=== PATIENT | male | born 1975 | race Caucasian/White ===

== ENCOUNTER 2021-09-07 19:21 | Emergency (ER) | payer OTHER, SELFPAY ==
--- NOTE | ~2021-09-07 | CT_ITS ---
EXAMINATION: CT HEAD WITHOUT CONTRAST CLINICAL INFORMATION: Dizziness. COMPARISON: CT head dated from 06/16/2017. TECHNIQUE: Contiguous axial imaging was performed from the skull base to vertex without intravenous administration of contrast. This CT examination was performed using dose optimization techniques as appropriate, variously including the following: *Automated exposure control *Adjustment of mA and/or kV according to patient size (this includes techniques or standardized protocols for targeted exams where dose is matched to indication/reason for exam; i.e. extremities or head) *Use of iterative reconstruction technique DLP: 663 mGy-cm FINDINGS: There is no evidence of acute intracranial hemorrhage or edematous territorial infarction. There is no abnormal attenuation within the brain parenchyma. Cali-white matter differentiation is preserved. The ventricles are normal in size and configuration. No evidence for obstructive hydrocephalus. No abnormal mass effect or midline shift. No extra-axial fluid collections. No acute soft tissue or osseous abnormalities. Mucosal thickening of the paranasal sinuses. No air-fluid level. The mastoids and middle air cavities are clear. CT/CT head/brain wo con IMPRESSION: No evidence of acute intracranial hemorrhage or edematous territorial infarction.
[2021-09-07 19:28] VITALS: BP 202/110; PULSE 104; O2SAT 98
[2021-09-07 19:31] VITALS: PULSE 99; RESP 19; TEMP 37.3; O2SAT 97; BMI 32.5
--- NOTE | 2021-09-07 19:46 | ED_ITS ---
HPI - Alcohol General Chief Complaint: ETOH/Substance Use Stated Complaint: Leg Weakness Time Seen by Provider: 09/07/21 19:35 History of Present Illness HPI narrative: PATIENT IS A 46-YEAR-OLD MALE PRESENT TODAY WITH HAVING generalized malaise weakness. Feels like his legs are weak. Patient has a long history of alcohol use. On Tuesday he had an episode of possible seizure. During this episode patient is awake alert aware of his surrounding. He noticed both wrists hands to be shaky. It resolved after about 1 minute. He was not confused after the incident. He has been drinking large amount of alcohol on a daily basis for at least the last week. Patient also complaining that his legs feel somewhat weak. 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 Patient from home. Elected to come to the ED for further evaluation. Denies any other recreational drug use. He also feel his vision is slightly off. Patient denies any focal weakness. Positive generalized malaise Related Data Allergies Allergy/AdvReac Type Severity Reaction Status Date / Time No Known Allergies Allergy Unverified 12/27/19 15:07 [No Known Allergies*] Review of Systems Review of Systems: No fever no chills no cough no congestion or respiratory symptom no diaphoresis Yes all other systems are reviewed and are negative PMFSH Past Medical History Attestation statement: The following information was validated with the patient. Social History Social History Alcohol intake: current Alcohol intake frequency: 3 or more drinks per day Alcohol type: beer and hard liquor Patient Tobacco Use Status: Current everyday Tobacco user Smoked in Last 30 Days: Yes Use of substances other than those prescribed or required for medical reasons: No Advance Directives: No Advance Directives Information Provided: No Physical Exam ED Vital Signs: Vital Signs - 24 hr 09/07/21 19:31 09/07/21 20:11 Temperature 99.1 F 98.5 F Pulse Rate 99 76 Respiratory Rate 19 16 Blood Pressure 141/69 H Pulse Oximetry 97 96 BMI result Body Mass Index 32.5 Appearance: Alert. Oriented X3. No acute distress. Eyes: Pupils equal, round and reactive to light. ENT: Pharynx normal. Neck: Normal inspection. Neck supple. No lymph nodes noted. No crepitus CVS: Normal heart rate and rhythm. Pulses normal. Normal S1 and S2 Respiratory: No respiratory distress. Breath sounds normal. No Wheezing. No rales Abdomen: Soft and nontender. No rigidity. No distention. good BS x4 Skin: Skin warm and dry. Normal skin color. Normal skin turgor. Extremities: No lower extremity edema. Neurovascular intact to all extremities. No Lacerations. No Rash Neuro: Oriented X 3. No motor deficit. No sensory deficit. Moving all exte rmities. No slurred speech MDM - Alcohol MDM Narrative Medical decision making narrative: Patient CT scan of the head was grossly negative for bleeding. No mass. Patient's electrolytes unremarkable. White count is normal. Ambulated well in the emergency department. Interestingly patient has no alcohol detectable today. Likely contribute to patient's generalized malaise. He is in stable con dition. Told to follow up on an outpatient basis question mild withdrawal. In stable condition. Patient case discussed with him. Told not to use any heavy machinery. Told to follow up with his primary physician. Told to go to detox. Of no patient's urine also positive for cocaine Differential Diagnosis Differential diagnosis: Likely alcohol dependence Medical Records Attestation: I reviewed the patient's medical records. Lab Data Attestation: I reviewed the patient's lab results. Result diagrams: 09/07/21 20:02 09/07/21 20:02 Labs: Lab Results 09/07/21 09/07/21 09/07/21 Range/Units 20:02 20:02 20:02 WBC 6.2 (4.8-10.8) X10*3/uL RBC 4.13 L (4.60-5.80) X10*6/uL Hgb 13.4 L (14.0-18.0) g/dl Hct 38.3 L (42.0-52.0) % MCV 92.7 (80.0-98.0) fL MCH 32.4 (27.0-33.0) pg MCHC 35.0 (31.0-36.0) g/dl RDW 14.1 (11.0-16.0) % Plt Count 76 L (160-400) X10*3/uL MPV 10.3 (9.4-12.4) fL Immature Gran % (Auto) 0.5 H (0.0-0.4) % Neut % (Auto) 63.8 (45-73) % Lymph % (Auto) 21.0 (20-40) % Sunflower % (Auto) 12.1 H (2-11) % Eos % (Auto) 2.3 (0-4) % Baso % (Auto) 0.3 (0-2) % Lymph # (Auto) 1.3 (1.2-4.9) X10*3/uL Sunflower # (Auto) 0.8 (0.1-1.2) X10*3/uL Eos # (Auto) 0.1 (0.0-0.4) X10*3/uL Baso # (Auto) 0.0 (0.0-0.2) X10*3/uL Abs Immat Gran (auto) 0.03 (0.00-0.03) X10*3/uL Absolute Neuts (auto) 4.0 (2.0-8.3) x10*3/uL Absolute Nucleated RBC 0.000 (0.0-0.012) X10*3/uL Nucleated RBC % (auto) 0.0 (0.0-0.2) /100WBC Smear Tech's Comments VERIFIED Sodium 135 (135-145) mmol/L Potassium 3.5 (3.3-5.1) mmol/L Chloride 100 (96-108) mmol/L Carbon Dioxide 23 (22-29) mmol/L Anion Gap 16 (12-20) BUN 9 (9-16) mg/dL Creatinine 0.70 (0.5-1.4) mg/dL Estim Creat Clear Calc 131.8 Estimated GFR > 60 Random Glucose 122 H (60-115) mg/dL Calcium 8.9 (8.4-10.2) mg/dL Magnesium 1.5 L (1.6-2.6) mg/dL Total Bilirubin 0.8 (0.0-1.0) mg/dL AST 89 H (5-37) U/L ALT 72 H (0-40) U/L Alkaline Phosphatase 81 (39-117) U/L Total Protein 7.3 (6.5-8.0) g/dL Albumin 3.7 (3.5-5.0) g/dL Urine Color Urine Appearance Urine pH (5.0-8.0) Ur Specific Street[place] (1.005-1.025) Urine Protein (NEG-TRACE) MG/DL Urine Glucose (UA) (NEG) MG/DL Urine Ketones (NEG) MG/DL Urine Blood (NEG) Urine Nitrite (NEG) Ur Leukocyte Esterase (NEG) Urine RBC (0) /HPF Urine WBC (0-4) /HPF Ur Squamous Epith Cells /LPF Urine Bacteria /LPF Urine Opiates Screen (Not Detect) Urine Fentanyl Screen (Not Detect) Ur Barbiturates Screen (Not Detect) Ur Phencyclidine Scrn (Not Detect) Ur Amphetamines Screen (Not Detect) U Benzodiazepines Scrn (Not Detect) Urine Cocaine Screen (Not Detect) U Marijuana (THC) Screen (Not Detect) Ethyl Alcohol < 10 mg/dL 09/07/21 09/07/21 Range/Units 20:06 20:19 WBC (4.8-10.8) X10*3/uL RBC (4.60-5.80) X10*6/uL Hgb (14.0-18.0) g/dl Hct (42.0-52.0) % MCV (80.0-98.0) fL MCH (27.0-33.0) pg MCHC (31.0-36.0) g/dl RDW (11.0-16.0) % Plt Count (160-400) X10*3/uL MPV (9.4-12.4) fL Immature Gran % (Auto) (0.0-0.4) % Neut % (Auto) (45-73) % Lymph % (Auto) (20-40) % Sunflower % (Auto) (2-11) % Eos % (Auto) (0-4) % Baso % (Auto) (0-2) % Lymph # (Auto) (1.2-4.9) X10*3/uL Sunflower # (Auto) (0.1-1.2) X10*3/uL Eos # (Auto) (0.0-0.4) X10*3/uL Baso # (Auto) (0.0-0.2) X10*3/uL Abs Immat Gran (auto) (0.00-0.03) X10*3/uL Absolute Neuts (auto) (2.0-8.3) x10*3/uL Absolute Nucleated RBC (0.0-0.012) X10*3/uL Nucleated RBC % (auto) (0.0-0.2) /100WBC Smear Tech's Comments Sodium (135-145) mmol/L Potassium (3.3-5.1) mmol/L Chloride (96-108) mmol/L Carbon Dioxide (22-29) mmol/L Anion Gap (12-20) BUN (9-16) mg/dL Creatinine (0.5-1.4) mg/dL Estim Creat Clear Calc Estimated GFR Random Glucose (60-115) mg/dL Calcium (8.4-10.2) mg/dL Magnesium (1.6-2.6) mg/dL Total Bilirubin (0.0-1.0) mg/dL AST (5-37) U/L ALT (0-40) U/L Alkaline Phosphatase (39-117) U/L Total Protein (6.5-8.0) g/dL Albumin (3.5-5.0) g/dL Urine Color YELLOW Urine Appearance CLEAR Urine pH 5.5 (5.0-8.0) Ur Specific Street[place] <= 1.005 (1.005-1.025) Urine Protein NEG (NEG-TRACE) MG/DL Urine Glucose (UA) NEG (NEG) MG/DL Urine Ketones NEG (NEG) MG/DL Urine Blood TRACE (NEG) Urine Nitrite NEG (NEG) Ur Leukocyte Esterase NEG (NEG) Urine RBC 0-2 (0) /HPF Urine WBC 0 (0-4) /HPF Ur Squamous Epith Cells NONE /LPF Urine Bacteria TRACE /LPF Urine Opiates Screen Not Detected (Not Detect) Urine Fentanyl Screen Not Detected (Not Detect) Ur Barbiturates Screen Not Detected (Not Detect) Ur Phencyclidine Scrn Not Detected (Not Detect) Ur Amphetamines Screen Not Detected (Not Detect) U Benzodiazepines Scrn Not Detected (Not Detect) Urine Cocaine Screen POSITIVE H (Not Detect) U Marijuana (THC) Screen Not Detected (Not Detect) Ethyl Alcohol mg/dL Discharge Plan Discharge Clinical Impression: Alcohol withdrawal syndrome, Cocaine use Patient Disposition: Home, Self-Care Instructions: Cocaine Abuse (ED), Alcohol Withdrawal (DC) Additional Instructions: Please stop using recreational drugs including cocaine. Please go to detox for your alcohol problem. Please do not operate any heavy machinery. Referrals: [facility] [Provider Group] Physician,None [Primary Care Provider] -
[2021-09-07] MEDS: 0.9 % Sodium Chloride 1,000 ML 999 ML IV (20:09)
[2021-09-07 20:11] VITALS: BP 141/69; PULSE 76; RESP 16; TEMP 36.9; O2SAT 96
[2021-09-07 20:16] LABS: Basophils Percent Auto 0.3 % (0-2); Imm Gran Abs Auto 0.03 X10*3/uL (0.00-0.03); Imm Gran Pct Auto 0.5 % (0.0-0.4); MANUAL DIFF FLAG SCAN; PLT CLUMP 1; SCAN SMEAR FLAG 1
[2021-09-07 20:17] LABS: Eosinophils Absolute Auto 0.1 X10*3/uL (0.0-0.4); Eosinophils Percent Auto 2.3 % (0-4); Hematocrit 38.3 % (42.0-52.0); Hemoglobin 13.4 g/dl (14.0-18.0); Lymphocytes Absolute Auto 1.3 X10*3/uL (1.2-4.9); Mean Corpuscular Hemoglobin 32.4 pg (27.0-33.0); Mean Corpuscular Volume 92.7 fL (80.0-98.0); Monocytes Absolute Auto 0.8 X10*3/uL (0.1-1.2); Monocytes Percent Auto 12.1 % (2-11); Neutrophils Percent Auto 63.8 % (45-73); Red Blood Count 4.13 X10*6/uL (4.60-5.80); Red Cell Distribution Width 14.1 % (11.0-16.0)
[2021-09-07 20:20] LABS: Appearance Urine CLEAR; Color Urine YELLOW; Glucose Urine UA NEG (NEG); Leukocyte Esterase Urine NEG (NEG); Nitrite Urine NEG (NEG); PH 5.5 (5.0-8.0); Specific Gravity - Urine <= 1.005 (1.005-1.025); UACC Culture Trigger NO; Urine Blood TRACE (NEG); Urine Ketones NEG (NEG); Urine Protein NEG (NEG-TRACE)
[2021-09-07 20:21] LABS: White Blood Count 6.2 X10*3/uL (4.8-10.8)
[2021-09-07 20:26] LABS: Bacteria Urine TRACE /LPF; RBC Urine 0-2 /HPF (0); WBC Urine 0 /HPF (0-4)
[2021-09-07 20:31] LABS: Ethanol < 10 mg/dL
[2021-09-07 20:33] LABS: Alanine Aminotransferase 72 U/L (0-40); Albumin Level 3.7 g/dL (3.5-5.0); Alkaline Phosphatase 81 U/L (39-117); Anion Gap 16 (12-20); Aspartate Amino Transferase 89 U/L (5-37); Bilirubin Total 0.8 mg/dL (0.0-1.0); Blood Urea Nitrogen 9 mg/dL (9-16); Calcium 8.9 mg/dL (8.4-10.2); Carbon Dioxide 23 mmol/L (22-29); Chloride 100 mmol/L (96-108); Creatinine Clr Calc Pharmacy 131.8; Estimated Glomerular Filt Rate > 60; Glucose Random 122 mg/dL (60-115); Magnesium 1.5 mg/dL (1.6-2.6); Potassium 3.5 mmol/L (3.3-5.1); Sodium 135 mmol/L (135-145); Total Protein 7.3 g/dL (6.5-8.0)
[2021-09-07 20:37] LABS: Mean Platelet Volume 10.3 fL (9.4-12.4); Platelet Count 76 X10*3/uL (160-400)
[2021-09-07 20:40] LABS: Amphetamine Screen Urine Not Detected (Not Detect); Barbiturates, Urine Not Detected (Not Detect); Benzodiazepines Screen Urine Not Detected (Not Detect); Cannabinoid Screen Urine Not Detected (Not Detect); Cocaine Screen Urine POSITIVE (Not Detect); Fentanyl, urine Not Detected (Not Detect); Opiate Screen Urine Not Detected (Not Detect); Phencyclidine Screen Urine Not Detected (Not Detect)
[2021-09-07 20:42] LABS: SLIDE REVIEW VERIFIED
== END 2021-09-07 21:32 | disposition home or self-care (01) ==
PROVIDERS: Emergency Provider Emergency Medicine Emergency Medical Services
DX: F10.239 Alcohol dependence with withdrawal, unspecified (principal); R42 Dizziness and giddiness; F14.10 Cocaine abuse, uncomplicated; Z79.899 Other long term (current) drug therapy
CPT/HCPCS: 36415; 70450; 80053; 80307; 81001; 82077; 83735; 85025; 96360; 99284

== ENCOUNTER 2022-02-18 12:30 | Emergency (ER) | payer OTHER, SELFPAY ==
[2022-02-18 12:54] VITALS: BP 146/87; PULSE 99; RESP 18; TEMP 36.9; O2SAT 97; BMI 19.9
--- NOTE | 2022-02-18 13:09 | ED.EXTPRO ---
HPI - Extremity Problem General Chief complaint: Extremity Injury, Upper Stated complaint: L wrist pain, no inj Time Seen by Provider: 02/18/22 13:04 Source: patient Mode of arrival: ambulatory History of Present Illness HPI Narrative: 46yo M w/no sig PMHx presenting to the ED c/o bilateral wrist pain and swelling x mos. 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 Takes Motrin and ices without improvement. Denies injury, trauma or fall, numbness, tingling, fever, chills MD Complaint: extremity pain and joint swelling Related Data Previous Rx's Medication Instructions Recorded naproxen 500 mg tablet 500 mg PO BID PRN pain 10 days #20 02/18/22 tabs naproxen 500 mg tablet 500 mg PO BID PRN pain 10 days #20 02/18/22 tabs prednisone 20 mg tablet 40 mg PO DAILY 5 days #10 tabs 02/18/22 prednisone 20 mg tablet 40 mg PO DAILY 5 days #10 tabs 02/18/22 Allergies Allergy/AdvReac Type Severity Reaction Status Date / Time No Known Allergies Allergy Verified 02/18/22 12:54 [No Known Allergies*] Review of Systems Review of Systems: Constitutional: No Weight loss, No Fever, No Chills ENT/Mouth: No Ear Pain, No Nasal Congestion, No sore throat, No Rhinorrhea Cardiovascular: No Chest Pain, No SOB Respiratory: No Cough, No Wheezing Gastrointestinal: No Nausea, No Vomiting, No Diarrhea, No Constipation, No Abdominal pain Genitourinary: No Dysuria, No Urinary Frequency, No Hematuria Musculoskeletal: No joint pain, No Myalgias, + Joint Swelling Skin: No Skin Lesions, No rash Neuro: No Weakness, No Numbness, No Paresthesias Yes all other systems are reviewed and are negative Constitutional: Constitutional: Reports as per [facility] Past Medical History Attestation statement: The following information was validated with the patient. Social History Social History Alcohol intake: current Alcohol intake frequency: 3 or more drinks per day Alcohol type: beer and hard liquor Patient Tobacco Use Status: Current everyday Tobacco user Advance Directives: No Advance Directives Information Provided: No Physical Exam Vital Signs: Vital Signs: Last Vital Signs Temp 98.5 F 02/18/22 12:54 Pulse 99 02/18/22 12:54 Resp 18 02/18/22 12:54 BP 146/87 H 02/18/22 12:54 Pulse Ox 97 02/18/22 12:54 O2 Del Method 02/18/22 12:54 BMI result Body Mass Index 19.9 Const: General: cooperative, healthy appearing and no acute distress Orientation/consciousness: patient oriented x3 Limitations: no limitations HEENT: Head: Yes normal to inspection and Yes atraumatic Ears: hearing grossly normal bilaterally General nose exam: Normal external nose present Face and sinus: Yes normal facial exam Eyes: General: appearance normal, both eyes and all related structures EOM: EOMs intact bilaterally Neck: Neck: Yes normal visual inspection and Yes no meningeal signs Resp: Effort & Inspection: normal respiratory effort and no respiratory distress Cardio: Rate: regular rate Heart sounds: S1 normal heart sound present and S2 normal heart sound present Peripheral pulses: Peripheral pulses 2+ throughout Skin: Rashes: no rashes Wounds: no wounds Neuro: General: patient oriented x3, tone normal and no meningeal signs Gait exam (Neuro): Normal gait present Extrem: Other: +mild bilateral wrist swelling & ttp, NV intact. FROM intact. No snuffbox ttp, no deformity, no warmth. No fluctuance or induration. No tinels or phalens sign MDM - Extremity (Nontraumatic) MDM Narrative Medical decision making narrative: 46yo M w/no sig PMHx presenting to the ED c/o bilateral wrist pain and swelling x mos. On exam VSS, NAD, PE as above with mild swelling to b/l wrists. Likely arthritis flare vs ?carpal tunnel. No evidence of trauma or deformity. No evidence of cellulitis. Low suspicion for septic joint/arthritis or fx Plan: Naproxen, Prednisone and Volar splints Medical Records Attestation: I reviewed the patient's medical records. Lab Data Attestation: I reviewed the patient's lab results. Discharge Plan Discharge Clinical Impression: Arthritis Patient Disposition: Home, Self-Care Instructions: Osteoarthritis (ED) Additional Instructions: Use response at home as needed. Ice and elevate your wrist. Naproxen as anti-inflammatory/ pain medication, take with food. In addition take prednisone. You need to follow-up with a primary care doctor, Orthopedics, and rheumatology If areas look infected, red, return to [place] you fever or you are unable to move her wrist return to the emergency department. Prescriptions: New prednisone 20 mg tablet 40 mg PO DAILY 5 Days Qty: 10 0RF naproxen 500 mg tablet 500 mg PO BID PRN (Reason: pain) 10 Days Qty: 20 0RF prednisone 20 mg tablet 40 mg PO DAILY 5 Days Qty: 10 0RF naproxen 500 mg tablet 500 mg PO BID PRN (Reason: pain) 10 Days Qty: 20 0RF Referrals: [facility] [place] [facility] [Provider Group] [facility] [place] [facility] [Provider Group] [facility] [place] Rheumatology Service [Provider Group] Stand Alone Forms: Work/School Release Interventions: ED Discharge Assessment Last Done: 02/18/22 13:15 Discharge Date/Time: 02/18/22 13:17
--- NOTE | 2022-02-18 13:10 | PC.NURSE ---
patient seen in triage by provider, was given bilateral arm splints and will be discharged
== END 2022-02-18 13:17 | disposition home or self-care (01) ==
PROVIDERS: Emergency Provider Emergency Medicine Emergency Medical Services
DX: M19.032 Primary osteoarthritis, left wrist (principal); M19.031 Primary osteoarthritis, right wrist
CPT/HCPCS: 29125; 99282; 99283

== ENCOUNTER 2023-02-10 11:57 | Outpatient (AMB) | payer OTHER, SELFPAY ==
[2023-02-10 11:54] VITALS: BP 130/80; PULSE 83; O2SAT 98; BMI 19.2
--- NOTE | 2023-02-10 11:54 | AM.OFFWIN_ITS ---
Intake Vital Signs 02/10/23 11:54 Height 5 ft 9 in Weight 130 lb BMI 19.2 BP 130/80 Blood Pressure Location Lt brachial Position Sitting Pulse 83 Pulse Source Pulse Oximeter Pulse Oximetry (%) 98 Oxygen Delivery Method Room Air Intake Visit Reasons: [employer] hit in mouth with pipe at work. 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 Patient states history a copper pipe into a box on a bounce-back striking him in the face specifically the upper left. Patient took ibuprofen prior to arrival. He denies any loss of consciousness, visual changes, neck pain, dental pain and states his teeth fit together similarly than before the facial trauma. Patient comes for evaluation of a facial laceration. His tetanus status is unknown to him. [facility] Social History Alcohol intake: current Alcohol intake frequency: 3 or more drinks per day Alcohol type: beer and hard liquor Patient Tobacco Use Status: Current everyday Tobacco user Review of Systems Const All systems reviewed & are unremarkable except as noted in HPI and below Denies headache(s) Eyes Reports as per HPI ENT Reports no additional complaints, Denies vertigo and Denies headache(s) Skin/Breast Reports system reviewed and no additional complaints, except as documented, Reports wounds (upper lip laceration) and Reports other Neuro Reports no additional complaints, Denies confusion, Denies vertigo and Denies headache(s) Psych Denies confusion Physical Exam Vital Signs: Last Vital Signs Pulse 83 02/10/23 11:54 BP 130/80 02/10/23 11:54 Pulse Ox 98 02/10/23 11:54 Oxygen Delivery Method Room Air 02/10/23 11:54 BMI result Body Mass Index 19.2 Const General: cooperative, healthy appearing, comfortable and no acute distress; No confusion Nutritional Appearance: average body habitus Orientation/consciousness: patient oriented x3 and No confusion Limitations: no limitations HEENT Head: Yes normal to inspection and Yes normocephalic Ears: hearing grossly normal bilaterally, external ears normal, TM's normal bilaterally and EAC's normal General nose exam: Normal external nose present (nasal bone non.tender to direct examination) Face and sinus: No normal facial exam (1cm laceration right aspect of the philtrum with irregular borders) and Yes laceration Mouth: abnormal oral mucosae (puncture wound opposite right upper incisor; not full thickness laceration), lip normal, tongue normal, oropharynx normal and other (dentition intact; no dental or other oral trauma) Teeth and gingiva: dentition normal Throat: Yes posterior oropharynx normal Neuro General: patient oriented x3 and No confusion Psych Appearance: grossly normal Mental Status: mental status grossly normal Speech and movement: Normal speech and movement present Insight: Good insight present (Psych) Judgement: Good judgement present (Psych) Office Procedures Laceration Repair Laceration repair performed by: Mila Baltazar Explained risks and benefits to parent: Yes Informed consent given: Yes Location: right philtrum Length: 1.0cm Sedation: No Anesthesia: 2% lidocaine Irrigation: saline Preparation: betadine Wound exploration: none Deep closure: No Skin closure: nylon (6-0 Prolene) Technique: Simple interupted Topical treatment: dry Tetanus toxoid ordered: Yes Patient tolerated procedure: [place]: [place] [id number] Repair <2.5cm Procedure code (CPT) selection complete Assessment & Plan Assessment & Plan (1) Facial laceration: Code(s): S01.81XA - Laceration without foreign body of other part of head, initial encounter Plan: 3 simple interrupted sutures placed under local anesthesia; patient tolerated procedure well. Tetanus updated. Orders: Orders TDaP Immunization Today Z23 - Encounter for immunization Coding Level of Care Code New Pt Level 4 (64083) Diagnoses Facial laceration S01.81XA Time Spent (min) 40
== END 2023-02-10 15:21 | disposition home or self-care (01) ==
PROVIDERS: Visit Provider Physician Assistant
DX: S01.511A Laceration without foreign body of lip, initial encounter (principal); Z04.2 Encounter for examination and observation following work accident
CPT/HCPCS: 12001; 90471; 90715; 99204

== ENCOUNTER 2023-02-19 11:53 | Outpatient (AMB) | payer OTHER, SELFPAY ==
--- NOTE | 2023-02-19 12:30 | MHC.OFFWIV ---
Intake Vital Signs 02/19/23 12:56 Height 5 ft 9 in Weight 132 lb BMI 19.5 BP 104/60 Blood Pressure Location Rt brachial Position Sitting Pulse 82 Pulse Source Pulse Oximeter Temp 98.1 F Temp Source Oral Pulse Oximetry (%) 98 Oxygen Delivery Method Room Air Intake Visit Reasons: EP, upper lip stich removal Intake Note: Pt is here today to have stitches removal on upper lip x3 Patient Tobacco Use Status: Current everyday Tobacco user Allergies No Known Allergies [No Known Allergies*] Allergy (Verified 02/19/23 12:30) HPI HPI Comments History of Present Illness Details This is a 47-year-old male presenting for suture removal. Patient had 3 simple interrupted sutures placed in his upper lip on February 10. Patient has no concerns regarding his sutures or the initial laceration. [facility] Social History Alcohol intake: current Alcohol intake frequency: 3 or more drinks per day Alcohol type: beer and hard liquor Patient Tobacco Use Status: Current everyday Tobacco user Review of Systems Const All systems reviewed & are unremarkable except as noted in HPI and below Skin/Breast Reports system reviewed and no additional complaints, except as documented and Reports as per HPI Neuro Reports no additional complaints Physical Exam Vital Signs: Last Vital Signs Temp 98.1 F 02/19/23 12:56 Pulse 82 02/19/23 12:56 BP 104/60 02/19/23 12:56 Pulse Ox 98 02/19/23 12:56 Oxygen Delivery Method Room Air 02/19/23 12:56 BMI result Body Mass Index 19.5 Const General: cooperative, healthy appearing, comfortable and no acute distress Nutritional Appearance: average body habitus Orientation/consciousness: patient oriented x3 Limitations: no limitations Skin Other: there are 3 simple interrupted sutures intact on the upper lip; no surrounding erythema, tenderness to examination of exudates. Neuro General: patient oriented x3 Psych Appearance: grossly normal Mental Status: mental status grossly normal Insight: Good insight present (Psych) Judgement: Good judgement present (Psych) Assessment & Plan Assessment & Plan (1) Encounter for removal of sutures: Code(s): Z48.02 - Encounter for removal of sutures Plan: The 3 sutures are easily removed and the area is cleansed. No dressing is warranted at this time. Coding Level of Care Code Est Pt Level 3 (41454) Diagnoses Encounter for removal of sutures Z48.02 Time Spent (min) 20
[2023-02-19 12:56] VITALS: BP 104/60; PULSE 82; TEMP 36.7; O2SAT 98; BMI 19.5
== END 2023-02-19 13:24 | disposition home or self-care (01) ==
PROVIDERS: Visit Provider Physician Assistant
DX: Z48.02 Encounter for removal of sutures (principal)
CPT/HCPCS: 15853; 99213

== ENCOUNTER 2023-04-05 12:05 | Outpatient (AMB) | payer OTHER, SELFPAY ==
[2023-04-05 13:32] VITALS: BP 110/62; PULSE 78; TEMP 36.6; O2SAT 97
--- NOTE | 2023-04-05 13:32 | AM.OFFWIN_ITS ---
Intake Vital Signs 04/05/23 13:32 Height 5 ft 9 in BP 110/62 Blood Pressure Location Rt brachial Position Sitting Pulse 78 Pulse Source Pulse Oximeter Temp 97.9 F Temp Source Temporal Artery Scan Pulse Oximetry (%) 97 Oxygen Delivery Method Room Air Intake Visit Reasons: EP Pain in both wrist Intake Note: pt is here for c.o pain in bilateral wrists, denies injury 1x year long and it been getting worse. patient does not have a est pcp recommended pateint to see front office staff to schedule an appt with one of our doctors to establish care Patient Tobacco Use Status: Current everyday Tobacco user Allergies No Known Allergies [No Known Allergies*] Allergy (Verified 04/05/23 14:15) Medication List - Last Reconciled 04/05/23 by Kavon Berrios MD No Known Home Meds Do you need a note to return to daycare/school/sports/work: Yes HPI EP Pain in both wrist HPI Details 48-year-old male presents to the office for a sick visit. Patient is complaining of pain in both his wrists for the past 1 year. Complains of morning stiffness and has developed swellings in the wrist. He is having pain every day. His sister was diagnosed with crippling rheumatoid arthritis. [facility] Social History Alcohol intake: current Alcohol intake frequency: 3 or more drinks per day Alcohol type: beer and hard liquor Patient Tobacco Use Status: Current everyday Tobacco user Physical Exam Vital Signs: Last Vital Signs Temp 97.9 F 04/05/23 13:32 Pulse 78 04/05/23 13:32 BP 110/62 04/05/23 13:32 Pulse Ox 97 04/05/23 13:32 Oxygen Delivery Method Room Air 04/05/23 13:32 Const General: cooperative and healthy appearing Nutritional Appearance: well nourished Orientation/consciousness: patient oriented x3 Limitations: no limitations HEENT Head: Yes normal to inspection Eyes General: appearance normal, both eyes and all related structures Neck Neck: Yes normal visual inspection Chest Chest palpation & inspection: normal palpation of entire chest wall Resp Effort & Inspection: normal respiratory effort Neuro General: patient oriented x3 Extrem Other: Right and left hands: Symmetrical swelling off the proximal interphalangeal joints. Wrist: Swelling and subcutaneus nodules at the volar surface of the wrist and elbow. Assessment & Plan Assessment & Plan (1) Rheumatoid arthritis: Code(s): M06.9 - Rheumatoid arthritis, unspecified Plan: Patient has inflammatory arthritis. He would benefit from a rheumatology appointment. He does not have a primary care provider. An appointment with Willi has been suggested. Meloxicam has been called in for now. X-rays have been reviewed by me. Orders: Orders XR wrist RT min 3V Today M06.9 - Rheumatoid arthritis, unspecified Lipid Panel Today M06.9 - Rheumatoid arthritis, unspecified XR hand RT min 3V Today M06.9 - Rheumatoid arthritis, unspecified Erythrocyte Sedimentation Rate Today M06.9 - Rheumatoid arthritis, unspecified Cyclic Citrullinated Peptide Today M06.9 - Rheumatoid arthritis, unspecified Liver Panel Today M06.9 - Rheumatoid arthritis, unspecified Basic Metabolic Panel Today M06.9 - Rheumatoid arthritis, unspecified Complete Blood Count no Diff Today M06.9 - Rheumatoid arthritis, unspecified UA and rflx microscopic Today M06.9 - Rheumatoid arthritis, unspecified Thyroid Stimulating Hormone Today M06.9 - Rheumatoid arthritis, unspecified Coding Level of Care Code Est Pt Level 4 (53810) Diagnoses Rheumatoid arthritis M06.9
== END 2023-04-05 15:01 | disposition home or self-care (01) ==
PROVIDERS: Visit Provider Internal Medicine
DX: M06.9 Rheumatoid arthritis, unspecified (principal)
CPT/HCPCS: 99214

== ENCOUNTER 2023-04-05 14:15 | Outpatient (REF) | payer OTHER, SELFPAY ==
--- NOTE | ~2023-04-05 | XR_ITS ---
EXAMINATION: XR WRIST, RIGHT XR HAND, RIGHT CLINICAL INFORMATION: Rheumatoid arthritis COMPARISON: None available. TECHNIQUE: PA, lateral, and oblique views of the right wrist and PA, lateral, and oblique views of the right hand FINDINGS: RIGHT WRIST: Triscaphoid joint: There is a para-articular erosion along the radial aspect of proximal subchondral portion of the bone. There is additional subchondral cystic change crossing the joint. There is severe uniform joint space loss throughout the joint. Second carpometacarpal joint subchondral cystic change noted at the base of the second metacarpal. There is diffuse joint space narrowing of the radiocarpal compartment. The remaining bones joints and soft tissues are normal. Alignment is normal. RIGHT HAND: The bones and soft tissues are normal. No fracture. Alignment is anatomic. Joint spaces are maintained. No erosions or soft tissue calcifications. 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 Additional arthrosis of the radiocarpal joint and second carpometacarpal joint RIGHT HAND: Findings in the wrist above. Otherwise bone and joints of the hand normal.
[2023-04-05 16:28] LABS: Hematocrit 45.5 % (42.0-52.0); Hemoglobin 15.3 g/dl (14.0-18.0); Mean Corpuscular HGB Conc 33.6 g/dl (31.0-36.0); Mean Corpuscular Hemoglobin 30.8 pg (27.0-33.0); Mean Corpuscular Volume 91.5 fL (80.0-98.0); Mean Platelet Volume 9.5 fL (9.4-12.4); Platelet Count 272 X10*3/uL (160-400); Red Blood Count 4.97 X10*6/uL (4.60-5.80); Red Cell Distribution Width 13.7 % (11.0-16.0); White Blood Count 13.2 X10*3/uL (4.8-10.8)
[2023-04-05 17:07] LABS: Erythrocyte Sedimentation Rate 26 MM/HR (0-15)
[2023-04-05 17:30] LABS: Alanine Aminotransferase 17 U/L (0-40); Albumin Level 4.2 g/dL (3.5-5.0); Alkaline Phosphatase 95 U/L (39-117); Anion Gap 14 (12-20); Aspartate Amino Transferase 20 U/L (5-37); Bilirubin Direct 0.1 mg/dL (0.0-0.5); Bilirubin Total 0.3 mg/dL (0.0-1.0); Blood Urea Nitrogen 7 mg/dL (9-16); Calcium 9.8 mg/dL (8.4-10.2); Carbon Dioxide 27 mmol/L (22-29); Chloride 103 mmol/L (96-108); Cholesterol 189 mg/dL (<200); Estimated Glomerular Filt Rate > 60; Glucose Random 90 mg/dL (60-115); HDL Cholesterol 43 mg/dL (>40); LDL Cholesterol Calculated 125 mg/dL (<100); Potassium 4.2 mmol/L (3.3-5.1); Sodium 140 mmol/L (135-145); Total Protein 8.4 g/dL (6.5-8.0); Triglycerides 105 mg/dL (<150)
[2023-04-05 17:45] LABS: Thyroid Stimulating Hormone 2.68 uIU/mL (0.32-4.0)
[2023-04-05 17:56] LABS: Rheumatoid Factor 827.6 IU/mL (<15.0)
[2023-04-07 18:34] LABS: Cyclic Citrullinated Peptide >250 UNITS
== END 2023-04-05 14:16 | disposition home or self-care (01) ==
LOC: HO.HMGCX 14:15
PROVIDERS: Visit Provider Internal Medicine
DX: M06.9 Rheumatoid arthritis, unspecified (principal)
CPT/HCPCS: 36415; 73110; 73130; 80048; 80061; 80076; 84443; 85027; 85652; 86200; 86431

== ENCOUNTER 2023-04-15 12:15 | Outpatient (REF) | payer OTHER, SELFPAY | END 2023-04-15 12:16 | disposition home or self-care (01) | LOC: HO.HMGCLNP 12:15 | PROVIDERS: Visit Provider Internal Medicine | DX: M06.9 Rheumatoid arthritis, unspecified (principal) | CPT/HCPCS: 81003 ==

== ENCOUNTER 2023-04-20 07:46 | Outpatient (AMB) | payer OTHER, SELFPAY ==
[2023-04-20 08:16] VITALS: BP 150/84; PULSE 98; O2SAT 98; BMI 20.6
--- NOTE | 2023-04-20 08:16 | MHC.PC.OV ---
Vital Signs 04/20/23 08:16 Height 5 ft 9 in Weight 139 lb 6 oz BMI 20.6 BP 150/84 H Blood Pressure Location Lt brachial Position Sitting Pulse 98 Pulse Source Pulse Oximeter Pulse Oximetry (%) 98 Oxygen Delivery Method Room Air Intake Visit Reasons: EST. Care/no records per patient has not seen PCP Intake Note: Pt is here to Est care and is asking for a PE and a referral occupational therapist's assistant because he was seen in the walk-in pt says he has never seen primary care Allergies No Known Allergies [No Known Allergies*] Allergy (Verified 04/20/23 08:35) Medication List - Last Reconciled 04/20/23 by VAL Lee No Known Home Meds Tobacco use date assessed: 04/20/23 Dental Screening Dental Screen Date: 04/20/23 Did you have a dental visit in the last 12 months?: No Did you have a dental problem in the last 6 months where you did not have access to dental care?: No Was dental information given to patient?: No HPI HPI Comments History of Present Illness Details Patient is a 48-year-old male here to establish care. He has never had a primary care provider and his adult life. He was last seen at our walk-in clinic 3 weeks prior to this appointment for bilateral pain in his hands. Labs demonstrated likely rheumatoid arthritis. Patient also has 2 sisters who have rheumatoid arthritis as well. 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 He states he was given prednisone which helped in the past. He needs a primary care provider in order to get a referral to Rheumatology. Patient is due for colonoscopy however he states that he is declining at this time and wants to talk about colonoscopy at his next appointment. He is declining this year's flu COVID immunization. [facility] Family History (Updated 04/20/23 @ 09:57 by VAL Lee) Sister Substance use disorder Rheumatoid arthritis Mother Substance use disorder Brother Substance use disorder Father Substance use disorder Sister Rheumatoid arthritis Social History Housing: Apartment Alcohol intake: current Alcohol intake frequency: 3 or more drinks per day Alcohol type: beer and hard liquor Patient Tobacco Use Status: Current everyday Tobacco user Cigarettes Per Day: 10 e-Cigarette/Vaping Use: Currently Using service: No Current occupational status: employed Current occupation: [employer] Current occupational exposures/hazards: Yes Cognitive needs: No Hearing needs: No Vision needs: No Questionnaire PHQ-9 Over the last 2 weeks, how often have you been bothered by any of the following problems? 1. Little interest or pleasure in doing things: several days 2. Feeling down, depressed, or hopeless: more than half the days 3. Trouble falling or staying asleep, or sleeping too much: several days 4. Feeling tired or having little energy: several days 5. Poor appetite or overeating: not at all 6. Feeling bad about yourself - or that you are a failure or have let yourself or your family down: more than half the days 7. Trouble concentrating on things, such as reading the newspaper or watching television: not at all 8. Moving or speaking so slowly that other people could have noticed. Or the opposite - being so fidgety or restless that you have been moving around a lot more than usual: not at all 9. Thoughts that you would be better off or of hurting yourself in some way: several days Total score: 8 Depression Screening Interpretation: Negative Depression Screening Done: Yes 77583 - PHQ-9 Billing: Yes Source: Developed by Drs. Alfredo Vasquez, Tahmina Mccrary, Larry Cruz and colleagues, with an educational ángel from [employer]. Thrive Questionnaire Date Thrive assessed: 04/20/23 I am a: Patient What is your living situation today?: I have a steady place to live Within the past 12 months, did the food you bought not last and you didn't have the money to get more?: Never true Within the past 12 months, did you worry whether your food would run out before you got money to buy more?: Never true Do you have trouble paying for medicines?: No Do you have trouble getting transportation to medical appointments?: Yes Do you have trouble paying your heating and electricity bill?: No Do you have trouble taking care of your child, family member or friend?: No Do you have trouble with day-to-day activities such as bathing, preparing meals, shopping, managing finances, etc.?: No Are you currently unemployed and looking for a job?: No Are you interested in more education?: No AUDIT C Alcohol Use Questionnaire (AUDIT-C) 1. How often do you have a drink containing alcohol?: Never Total Score: 0 MARLYN-7 AMB Questionnaire MARLYN-7 Date MARLYN - 7 assessed: 04/20/23 Feeling nervous, anxious, or on edge: 1 = Several days Not being able to stop or control worryin = More than half the days Worrying too much about different things: 1 = Several days Trouble relaxin = Several days Being so restless that it is hard to sit still: 1 = Several days Becoming easily annoyed or irritable: 1 = Several days Feeling afraid as if something awful might happen: 2 = More than half the days Total MARLYN-7 score (0-4 normal; 5-9 mild; 10-14 moderate; 15-21 severe): 9 Source: Developed by Drs. Alfredo Vasquez, Tahmina Mccrary, Larry Cruz and colleagues, with an educational ángel from [employer]. MARLYN-7 Assessment Billing MARLYN-7 Assessment Tool: MARLYN-7 Assessment 54866 Review of Systems Const Details: Constitutional : No Weight loss, No Fever, No Chills, No Fatigue, No Malaise ENT/Mouth : No sore throat, No Rhinorrhea Eyes: No Eye Pain, No Swelling, No Redness Cardiovascular : No Chest Pain, No SOB, No Dyspnea on Exertion, No Orthopnea, No Edema, No Palpitations Respiratory : No Cough, No Sputum, No Wheezing Gastrointestinal : No Nausea, No Vomiting, No Diarrhea, No Constipation, No abdominal Pain, No Hematochezia, No Melena Genitourinary : No Dysuria, No Urinary Frequency, No Hematuria, Musculoskeletal : Admtis bilateral hand pain, elbow pain. Admits bilateral foot pain. Skin : Admits redness over knuckle joints of hands. Neuro : No Weakness, No Numbness, No Dizziness, No Headache Psych : No Anxiety/Panic, No Depression Heme/Lymph: No Bruising, No Bleeding,No Lymphadenopathy Endocrine : No Polyuria, No Polydipsia All other systems reviewed and are negative Physical exam (Primary Care) Vital Signs: Last Vital Signs Pulse 98 04/20/23 08:16 BP 150/84 H 04/20/23 08:16 Pulse Ox 98 04/20/23 08:16 Oxygen Delivery Method Room Air 04/20/23 08:16 Care Plan Goal for BP management: Patient does not want to start blood pressure medication today. He states he has stressful life events right now. Once tried taking blood pressure measurements at home. Next steps: Patient will take blood pressure log at home, bring it in for follow-up appointment. BMI result Body Mass Index 20.6 Tobacco/Smoking Status: Tobacco use Status Tobacco use date assessed 04/20/23 04/20/23 08:26 Patient Tobacco Use Status Current everyday Tobacco 04/20/23 08:26 e-Cigarette/Vaping Use Currently Using 04/20/23 08:26 PHQ-9: PHQ-9 Score PHQ-9: Total score 10 04/20/23 09:17 Depression Screening Interpretation: Negative Thrive Assessment: Date of Thrive Assessment Date Thrive assessed 04/20/23 04/20/23 08:31 Const Other: Appearance: Alert.? Oriented X3.? No acute distress.? Eyes: Pupils equal, round and reactive to light.? Neck: Normal inspection.? Neck supple.? CVS: Normal heart rate and rhythm.? Pulses normal.? Respiratory: No respiratory distress.? Breath sounds normal.? Abdomen: Soft and nontender.? Skin: Erythema and edema over MIP joing of bilateral hands. Erythema of bilateral elbows. Nodule on right elbow.? Extremities: No lower extremity edema.? No calf ttp. 5/5 strength to bilateral upper and lower extremities Back: No midline tenderness, no C-spine tenderness, full range of motion, no CVA tenderness bilaterally Neuro: Oriented X 3.? No motor deficit.? No sensory deficit. CN 2-12 intact Results Reviewed Results Reviewed: Will call patient with lab results. Assessment and Plan Assessment & Plan (1) Rheumatoid arthritis: Comment: Will get patient referral to Rheumatology. Will give patient prednisone and Celebrex to be taken as directed. He has been educated on common side effects of these medications. He is agreeable with this plan. Code(s): M06.9 - Rheumatoid arthritis, unspecified Qualifiers: Rheumatoid arthritis location: multiple sites Rheumatoid factor presence: with rheumatoid factor Qualified Code(s): M05.79 - Rheumatoid arthritis with rheumatoid factor of multiple sites without organ or systems involvement (2) Hypertension: Comment: Patient will take blood pressure measurements at home. He declined medication at this time. Code(s): I10 - Essential (primary) hypertension Qualifiers: Hypertension type: primary hypertension Qualified Code(s): I10 - Essential (primary) hypertension Plan: Take your medications as prescribed. If you were prescribed antibiotics today, it is important that you take your medication to their entirety, do not skip any doses, do not finish them early. Follow-up with your primary care provider this week. Return to the emergency department with new or worsening symptoms. Such as fevers, chills, chest pain, shortness of breath, nausea, vomiting, dizziness, headache, vision changes, lethargy In case of emergency call 911 Plan Patient will follow-up in 4 months. Orders: Orders Vitamin D 25-OH (D2 and D3) Today Z13.21 - Encounter for screening for nutritional disorder UA CC w/rflx Micro + Cult Today E86.0 - Dehydration TSH reflex Free T4 Today E03.9 - Hypothyroidism, unspecified Complete Blood Count Auto Diff Today Z13.0 - Encounter for screening for diseases of the blood and blood-forming organs and certain disorders involving the immune mechanism Comprehensive Met. Panel Today Z91.89 - Other specified personal risk factors, not elsewhere classified PSA,Total (Free>4and<10) Today Z12.5 - Encounter for screening for malignant neoplasm of prostate Referrals Rheumatology Referral M06.9 - Rheumatoid arthritis, unspecified Medications: New albuterol sulfate 90 mcg/actuation 2 puffs inhalation Q6H PRN 6.7 grams 0RF shortness of breath or wheezing prednisone 20 mg PO DAILY 5 tabs 0RF celecoxib (Celebrex) 200 mg PO BID PRN 28 caps 0RF pain Review Patient declined Colonoscopy: 04/20/23 Patient declined Colon Cancer Screen Lab: 04/20/23 Flu Vaccine not done: patient reason (Declined) Coding Level of Care Code Est Pt Level 3 (86601) Diagnoses Rheumatoid arthritis involving multiple sites with positive rheumatoid factor M05.79 Rheumatoid arthritis location: multiple sites Rheumatoid factor presence: with rheumatoid factor Primary hypertension I10 Hypertension type: primary hypertension Additional Codes MARLYN-7 Assessment Billing - MARLYN-7 Assessment Tool: MARLYN-7 Assessment 55852 ([id number]) Time Spent (min) 45
== END 2023-04-20 09:01 | disposition home or self-care (01) ==
PROVIDERS: Visit Provider Nurse Practitioner Primary Care
DX: M05.79 Rheumatoid arthritis with rheumatoid factor of multiple sites without organ or systems involvement (principal); I10 Essential (primary) hypertension; Z00.00 Encounter for general adult medical examination without abnormal findings
CPT/HCPCS: 99214; 99396

== ENCOUNTER 2023-05-06 07:17 | Outpatient (REF) | payer OTHER, SELFPAY ==
[2023-05-06 11:31] LABS: Appearance Urine Clear; Color Urine Yellow; Glucose Urine UA Negative (Negative); Leukocyte Esterase Urine Negative (Negative); Nitrite Urine Negative (Negative); PH 6.5 (5.0-9.0); Specific Gravity - Urine 1.015 (1.005-1.025); Urine Blood Negative (Negative); Urine Ketones Negative (Negative); Urine Protein Negative (Neg-Trace)
[2023-05-06 11:34] LABS: MANUAL DIFF FLAG NO
[2023-05-06 12:01] LABS: Basophils Percent Auto 0.4 % (0-2); Eosinophils Absolute Auto 0.3 X10*3/uL (0.0-0.4); Eosinophils Percent Auto 3.4 % (0-4); Hematocrit 43.4 % (42.0-52.0); Hemoglobin 14.4 g/dl (14.0-18.0); Imm Gran Abs Auto 0.03 X10*3/uL (0.00-0.03); Imm Gran Pct Auto 0.3 % (0.0-0.4); Mean Corpuscular HGB Conc 33.2 g/dl (31.0-36.0); Mean Corpuscular Hemoglobin 30.8 pg (27.0-33.0); Mean Corpuscular Volume 92.7 fL (80.0-98.0); Monocytes Absolute Auto 0.7 X10*3/uL (0.1-1.2); Monocytes Percent Auto 7.7 % (2-11); Neutrophils Absolute Auto 6.1 x10*3/uL (2.0-8.3); Neutrophils Percent Auto 66.2 % (45-73); Platelet Count 211 X10*3/uL (160-400); Red Blood Count 4.68 X10*6/uL (4.60-5.80); White Blood Count 9.1 X10*3/uL (4.8-10.8)
[2023-05-06 12:27] LABS: PSA,Total (Free>4and<10) 0.22 ng/mL (0.00-4.00)
[2023-05-06 12:40] LABS: Alanine Aminotransferase 15 U/L (0-40); Albumin Level 3.8 g/dL (3.5-5.0); Alkaline Phosphatase 84 U/L (39-117); Anion Gap 13 (12-20); Aspartate Amino Transferase 21 U/L (5-37); Bilirubin Total 0.4 mg/dL (0.0-1.0); Blood Urea Nitrogen 10 mg/dL (9-16); Calcium 9.3 mg/dL (8.4-10.2); Carbon Dioxide 23 mmol/L (22-29); Chloride 109 mmol/L (96-108); Estimated Glomerular Filt Rate > 60; Glucose Random 95 mg/dL (60-115); Potassium 4.2 mmol/L (3.3-5.1); Sodium 141 mmol/L (135-145); TSH reflex Free T4 1.84 uIU/mL (0.32-4.0); Total Protein 7.5 g/dL (6.5-8.0)
[2023-05-11 15:28] LABS: Vitamin D 25-OH, D2 <4 ng/mL; Vitamin D 25-OH, D3 19 ng/mL; Vitamin D 25-OH, Total 19 ng/mL (30-100)
== END 2023-05-06 07:18 | disposition home or self-care (01) ==
LOC: HO.HMGCLDS 07:17
PROVIDERS: PCP Nurse Practitioner Primary Care; Visit Provider Nurse Practitioner Primary Care
DX: Z12.5 Encounter for screening for malignant neoplasm of prostate (principal); Z13.0 Encounter for screening for diseases of the blood and blood-forming organs and certain disorders involving the immune mechanism; Z13.21 Encounter for screening for nutritional disorder; E86.0 Dehydration; E03.9 Hypothyroidism, unspecified; Z91.89 Other specified personal risk factors, not elsewhere classified
CPT/HCPCS: 36415; 80053; 81003; 82306; 84153; 84443; 85025

== ENCOUNTER 2023-05-31 15:36 | Outpatient (AMB) | payer OTHER, SELFPAY ==
--- NOTE | 2023-05-31 15:37 | A.OFFVIS_ITS ---
Intake Vital Signs 05/31/23 15:39 Height 5 ft 9 in Weight 134 lb 7.712 oz BMI 19.9 BP 130/72 Blood Pressure Location Rt brachial Position Sitting Pulse 95 Pulse Source Pulse Oximeter Temp 99.4 F Temp Source Skin Pulse Oximetry (%) 98 Oxygen Delivery Method Room Air Intake Visit Reasons: RA Intake Note: New patient, internally referred, presents today for RA consult. 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 Izquierdo 48yoM presents today for evaluation of Bilateral wrist pain and swelling with +RF and +CCP. The patient reports he has been having pain and swelling to the wrist for about 1 year. He has not been able to get medical attention consistently because he lacked insurance. He was treated with Prednsione for 5 days and celebrex daily and that has help with the pain and swelling. He also reports using Tylenol and Aleve to help with the pain and gets some relief from that. 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 He has a history of substance abuse for alcohol and illicit drugs. He says he has been off alcohol for 1 year now. He hopes to get help with the wrist because it very much affects his work. The patient denies pain and swelling other joints. He says his hands and wrists are his main concern The patient denied Raynaud's, dry eyes or dry mouth, skin rashes, uveitis. He says he has not had pericarditis or pleuritis he has no current concerns for short of breath or respiratory infections. [facility] Medical History (Updated 06/02/23 @ 23:18 by KAITLIN Quintero) Seropositive rheumatoid arthritis of both wrists long-term methotrexate user Pain and swelling of toe of right foot Bilateral wrist pain Family History Sister Substance use disorder Rheumatoid arthritis Mother Substance use disorder Brother Substance use disorder Father Substance use disorder Sister Rheumatoid arthritis Social History (Updated 05/31/23 @ 15:45 by NAOMI Biggs) Housing: Apartment Alcohol intake: former Patient Tobacco Use Status: Current everyday Tobacco user Cigarettes Per Day: 10 e-Cigarette/Vaping Use: Currently Using service: No Current occupational status: employed Current occupation: [employer] Current occupational exposures/hazards: Yes Cognitive needs: No Hearing needs: No Vision needs: No Review of Systems Const All systems reviewed & are unremarkable except as noted in HPI and below Physical Exam Vital Signs: Last Vital Signs Temp 99.4 F 05/31/23 15:39 Pulse 95 05/31/23 15:39 BP 130/72 05/31/23 15:39 Pulse Ox 98 05/31/23 15:39 Oxygen Delivery Method Room Air 05/31/23 15:39 BMI result Body Mass Index 19.9 APPEARANCE: Patient in no acute distress EYES no redness, pupils equal and reactive to light, eyelids normal EARS:? External ear normal, canal clear and tympanic membrane normal. NOSE/SINUS:? Airflow through both nares, no nasal discharge, no bleeding THROAT:? Oral mucosa moist, no ulcerations NECK:? No thyromegaly or masses, no adenopathy, trachea midline. HEART:? Regular rhythm, S1-S2 heard, no murmurs, rubs or gallops. LUNG:? Clear to percussion and auscultation ABD:? Normal bowel sounds, no organomegaly, masses or tenderness. EXTREMITIES:? No edema, no calf tenderness, normal peripheral pulses. NEURO:? Oriented and alert x3.? No focal weakness.? Reflexes symmetric.? Gait normal. SKIN:? There are no skin lesions evident. No objective signs of Raynaud's phenomenon. JOINT EXAM: ?? Cervical Spine:.? Full range of motion without pain; no tenderness. Thoracic Spine:.? No scoliosis.? No tenderness on palpation. Lumbar Spine:.? Alignment normal.? Full range of motion without pain, no tenderness. Chest Wall:.? No tenderness, swelling, increased warmth or erythema. Hands:.? Some limitation in range of motion with pain, tenderness, swelling, increased warmth and erythema. 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 Wrists:.? DROM with pain swelling, warmth and erythema. There is a cysts near each styloid, a ganlion cyst to dorsum of right hand. Some deformity to wrists with devations. Elbows:. Normal pain-free range of motion without tenderness, swelling, increased warmth or erythema. Shoulders:.?? Full range of motion without pain. No tenderness, weakness, swelling, increased warmth or erythema. Hips:.? Full range of motion without pain. Hip bursa:.? No tenderness. Knees:.?? Normal pain-free range of motion without tenderness, swelling, increased warmth or erythema.? There is no effusion or crepitation Ankles:.? Normal pain-free range of motion without tenderness, swelling, increased warmth or erythema. Feet:.? Normal pain-free range of motion without tenderness, swelling, increased warmth or erythema. Results Reviewed Results Reviewed: Laboratory Tests 04/05/23 04/05/23 05/06/23 15:15 15:15 07:20 WBC RBC Hgb 14.4 Hct 43.4 ESR 26 H 25-OH Vitamin D Total TSH Rheumatoid Factor 827.6 H Cycl Citrul Peptide IgG >250 H 05/06/23 05/06/23 07:20 07:20 WBC 9.1 RBC 4.68 Hgb Hct ESR 25-OH Vitamin D Total 19 L TSH 1.84 Rheumatoid Factor Cycl Citrul Peptide IgG Ordering Physician: Kavon Berrios MD Date of Service: 04/05/23 Procedure(s): XR hand wrist RT Accession Number(s): [id number] cc: Physician,None ; Kavon Berrios MD~ EXAMINATION: XR WRIST, RIGHT XR HAND, RIGHT CLINICAL INFORMATION: Rheumatoid arthritis COMPARISON: None available. TECHNIQUE: PA, lateral, and oblique views of the right wrist and PA, lateral, and oblique views of the right hand FINDINGS: RIGHT WRIST: Triscaphoid joint: There is a para-articular erosion along the radial aspect of proximal subchondral portion of the bone. There is additional subchondral cystic change crossing the joint. There is severe uniform joint space loss throughout the joint. Second carpometacarpal joint subchondral cystic change noted at the base of the second metacarpal. There is diffuse joint space narrowing of the radiocarpal compartment. The remaining bones joints and soft tissues are normal. Alignment is normal. RIGHT HAND: The bones and soft tissues are normal. No fracture. Alignment is anatomic. Joint spaces are maintained. No erosions or soft tissue calcifications. 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 Additional arthrosis of the radiocarpal joint and second carpometacarpal joint RIGHT HAND: Findings in the wrist above. Otherwise bone and joints of the hand normal. Assessment & Plan Assessment & Plan (1) Rheumatoid arthritis: Comment: Will get patient referral to Rheumatology. Will give patient prednisone and Celebrex to be taken as directed. He has been educated on common side effects of these medications. He is agreeable with this plan. Code(s): M06.9 - Rheumatoid arthritis, unspecified Qualifiers: Rheumatoid arthritis location: multiple sites Rheumatoid factor presence: with rheumatoid factor Qualified Code(s): M05.79 - Rheumatoid arthritis with rheumatoid factor of multiple sites without organ or systems involvement (2) long-term methotrexate user: Code(s): Z79.631 - long-term (current) use of antimetabolite agent (3) Seropositive rheumatoid arthritis of both wrists: Code(s): M05.731 - Rheumatoid arthritis with rheumatoid factor of right wrist without organ or systems involvement; M05.732 - Rheumatoid arthritis with rheumatoid factor of left wrist without organ or systems involvement Plan #SeroPos RA/Wrist Pain: +RF 827, +CCP >250. Clinically, Mr. Izquierdo has severe RA to his bilateral wrist imaging for the right wrist shows para-articular erosion along the radial aspect of proximal subchondral portion of the bone. There is moderate to severe swelling and tenderness on PE with DROM. We will start him on MTX 2.5mg 6 pils QW and Folic Acid 1 mg QD. The onset of effectiveness can take up to 12 weeks. Therefore we will bridge him with a course of prednisone while methotrexate onboards. I will order labs to revaluate ESR/CRP and other measurement for inflammatory findings. I will obtain a baseline chest Xray due to MTX start and high tither antibodies, former smoker and substance abuse. #[facility] Use: We will monitor his liver enzymes and CBC at the start and ongoing use of methotrexate. He will also take folic acid 1 mg per day. I discussed the other side effects of methotrexate can include but not limited to mouth sores, fatigue, nausea vomiting, and blood dyscrasias. He has been off alcohol for a year so I do not think there is any risk for starting him on methotrexate. I did discuss with patient that there is a possible side effect of liver toxicity on methotrexate and that alcohol can compound that risk. Therefore it is advisable to refrain from alcohol while on methotrexate. I spent 50 minutes reviewing history and diagnostics. evaluating and educating patient and documenting. f/u in 2 months with labs, Orders: Orders XR chest 2V 05/31/23 M06.9 - Rheumatoid arthritis, unspecified, M25.531 - Pain in right wrist, M25.532 - Pain in left wrist, M79.674 - Pain in right toe(s), M79.89 - Other specified soft tissue disorders CARLI Reflex Titer and Pattern 05/31/23 M06.9 - Rheumatoid arthritis, unspecified, M25.531 - Pain in right wrist, M25.532 - Pain in left wrist, M79.674 - Pain in right toe(s), M79.89 - Other specified soft tissue disorders C Reactive Protein 05/31/23 M06.9 - Rheumatoid arthritis, unspecified, M25.531 - Pain in right wrist, M25.532 - Pain in left wrist, M79.674 - Pain in right toe(s), M79.89 - Other specified soft tissue disorders Uric Acid 05/31/23 M06.9 - Rheumatoid arthritis, unspecified, M25.531 - Pain in right wrist, M25.532 - Pain in left wrist, M79.674 - Pain in right toe(s), M79.89 - Other specified soft tissue disorders Erythrocyte Sedimentation Rate 05/31/23 M06.9 - Rheumatoid arthritis, unspecified, M25.531 - Pain in right wrist, M25.532 - Pain in left wrist, M79.674 - Pain in right toe(s), M79.89 - Other specified soft tissue disorders Comprehensive Met. Panel 05/31/23 M06.9 - Rheumatoid arthritis, unspecified, M25.531 - Pain in right wrist, M25.532 - Pain in left wrist, M79.674 - Pain in right toe(s), M79.89 - Other specified soft tissue disorders Complete Blood Count Auto Diff 05/31/23 M06.9 - Rheumatoid arthritis, unspecified, M25.531 - Pain in right wrist, M25.532 - Pain in left wrist, M79.674 - Pain in right toe(s), M79.89 - Other specified soft tissue disorders Medications: New methotrexate sodium 15 mg (6 x 2.5 mg) PO QWEEK 72 tabs 0RF M06.9 - Rheumatoid arthritis, unspecified, M79.674 - Pain in right toe(s), M79.89 - Other specified soft tissue disorders folic acid 1 mg PO DAILY 90 tabs 1RF Z79.631 - long-term (current) use of antimetabolite agent prednisone orally as directed; take 4 pills x 7 days 3 tablets x 7 days 2 tablets x 7 days 1 tablet until next visit 60 tabs 0RF Coding Level of Care Code New Pt Level 5 (17142) Diagnoses Rheumatoid arthritis involving multiple sites with positive rheumatoid factor M05.79 Rheumatoid arthritis location: multiple sites Rheumatoid factor presence: with rheumatoid factor long-term methotrexate user Z79.631 Seropositive rheumatoid arthritis of both wrists M05.731; M05.732
[2023-05-31 15:39] VITALS: BP 130/72; PULSE 95; TEMP 37.4; O2SAT 98; BMI 19.9
== END 2023-05-31 16:33 | disposition home or self-care (01) ==
PROVIDERS: PCP Nurse Practitioner Primary Care; Visit Provider Nurse Practitioner Family
DX: M05.79 Rheumatoid arthritis with rheumatoid factor of multiple sites without organ or systems involvement (principal); M05.731 Rheumatoid arthritis with rheumatoid factor of right wrist without organ or systems involvement; M05.732 Rheumatoid arthritis with rheumatoid factor of left wrist without organ or systems involvement; Z79.631 Long term (current) use of antimetabolite agent
CPT/HCPCS: 99205

== ENCOUNTER → 2023-05-31 15:36 | Outpatient (BNVA) | payer OTHER, SELFPAY | PROVIDERS: PCP Nurse Practitioner Primary Care; Visit Provider Nurse Practitioner Family ==

== ENCOUNTER 2023-07-25 06:03 | Outpatient (REF) | payer OTHER, SELFPAY ==
[2023-07-25 10:28] LABS: MANUAL DIFF FLAG NO
[2023-07-25 10:30] LABS: Basophils Absolute Auto 0.1 X10*3/uL (0.0-0.2); Basophils Percent Auto 0.6 % (0-2); Eosinophils Absolute Auto 0.3 X10*3/uL (0.0-0.4); Eosinophils Percent Auto 3.6 % (0-4); Hematocrit 47.6 % (42.0-52.0); Hemoglobin 15.8 g/dl (14.0-18.0); Imm Gran Abs Auto 0.02 X10*3/uL (0.00-0.03); Imm Gran Pct Auto 0.2 % (0.0-0.4); Lymphocytes Absolute Auto 2.6 X10*3/uL (1.2-4.9); Lymphocytes Percent Auto 32.4 % (20-40); Mean Corpuscular HGB Conc 33.2 g/dl (31.0-36.0); Mean Corpuscular Hemoglobin 31.4 pg (27.0-33.0); Mean Corpuscular Volume 94.6 fL (80.0-98.0); Mean Platelet Volume 10.2 fL (9.4-12.4); Monocytes Absolute Auto 0.7 X10*3/uL (0.1-1.2); Monocytes Percent Auto 8.2 % (2-11); Neutrophils Absolute Auto 4.4 x10*3/uL (2.0-8.3); Platelet Count 231 X10*3/uL (160-400); Red Blood Count 5.03 X10*6/uL (4.60-5.80); Red Cell Distribution Width 15.4 % (11.0-16.0)
[2023-07-25 10:55] LABS: Alanine Aminotransferase 21 U/L (0-40); Albumin Level 4.2 g/dL (3.5-5.0); Alkaline Phosphatase 80 U/L (39-117); Anion Gap 12 (12-20); Aspartate Amino Transferase 20 U/L (5-37); Bilirubin Total 0.5 mg/dL (0.0-1.0); Blood Urea Nitrogen 16 mg/dL (9-16); Calcium 9.6 mg/dL (8.4-10.2); Carbon Dioxide 25 mmol/L (22-29); Chloride 106 mmol/L (96-108); Estimated Glomerular Filt Rate > 60; Glucose Random 98 mg/dL (60-115); Sodium 139 mmol/L (135-145); Total Protein 7.7 g/dL (6.5-8.0); Uric Acid 8.7 mg/dL (3.4-7.0)
[2023-07-25 11:15] LABS: Erythrocyte Sedimentation Rate 10 MM/HR (0-15)
[2023-07-27 13:49] LABS: Anti Nuclear Antibody Screen NEGATIVE (NEGATIVE)
== END 2023-07-25 06:04 | disposition home or self-care (01) ==
LOC: HO.HMGCLDS 06:03
PROVIDERS: PCP Nurse Practitioner Primary Care; Visit Provider Nurse Practitioner Family
DX: M06.9 Rheumatoid arthritis, unspecified (principal); M25.531 Pain in right wrist; M25.532 Pain in left wrist; M79.674 Pain in right toe(s); M79.89 Other specified soft tissue disorders
CPT/HCPCS: 36415; 80053; 84550; 85025; 85652; 86038; 86140

== ENCOUNTER 2023-07-28 12:30 | Outpatient (AMB) | payer OTHER, SELFPAY ==
--- NOTE | 2023-07-28 12:33 | MHC.OFFVIS ---
Vital Signs 07/28/23 12:40 Height 5 ft 9 in Weight 134 lb 11.239 oz BMI 19.9 BP 150/80 H Blood Pressure Location Rt brachial Position Sitting Pulse 99 Pulse Source Pulse Oximeter Pulse Oximetry (%) 97 Oxygen Delivery Method Room Air Intake Visit Reasons: RA/Hand Swelling Intake Note: Patient last seen 05/31/23, presents today for follow up and test results. 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 Felecia Perez presents today for follow-up +RF and +CCP RA with Bilateral wrist pain and swelling. He has been on MTX and Prednisone since last visit. He has had significant improvement with swelling resolved and pain reduced. He still has some difficulty hold things because his hands have some weakness but he hopes it will continue to feel better. 05/31/2023 Faby: Mr. Felecia Perez presents today for evaluation of Bilateral wrist pain and swelling with +RF and +CCP. The patient reports he has been having pain and swelling to the wrist for about 1 year. He has not been able to get medical attention consistently because he lacked insurance. He was treated with Prednsione for 5 days and celebrex daily and that has help with the pain and swelling. He also reports using Tylenol and Aleve to help with the pain and gets some relief from that. 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 He has a history of substance abuse for alcohol and illicit drugs. He says he has been off alcohol for 1 year now. He hopes to get help with the wrist because it very much affects his work. The patient denies pain and swelling other joints. He says his hands and wrists are his main concern The patient denied Raynaud's, dry eyes or dry mouth, skin rashes, uveitis. He says he has not had pericarditis or pleuritis he has no current concerns for short of breath or respiratory infections. 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 Pain and swelling of toe of right foot Bilateral wrist pain Family History Sister Substance use disorder Rheumatoid arthritis Mother Substance use disorder Brother Substance use disorder Father Substance use disorder Sister Rheumatoid arthritis Social History Housing: Apartment Alcohol intake: former Patient Tobacco Use Status: Current everyday Tobacco user Cigarettes Per Day: 10 e-Cigarette/Vaping Use: Currently Using service: No Current occupational status: employed Current occupation: [employer] Current occupational exposures/hazards: Yes Cognitive needs: No Hearing needs: No Vision needs: No Review of Systems Const All systems reviewed & are unremarkable except as noted in HPI and below Physical Exam Vital Signs: Last Vital Signs Pulse 99 07/28/23 12:40 BP 150/80 H 07/28/23 12:40 Pulse Ox 97 07/28/23 12:40 Oxygen Delivery Method Room Air 07/28/23 12:40 BMI result Body Mass Index 19.9 APPEARANCE: Patient in no acute distress EYES no redness, pupils equal and reactive to light, eyelids normal EARS:? External ear normal, canal clear and tympanic membrane normal. NOSE/SINUS:? Airflow through both nares, no nasal discharge, no bleeding THROAT:? Oral mucosa moist, no ulcerations NECK:? No thyromegaly or masses, no adenopathy, trachea midline. HEART:? Regular rhythm, S1-S2 heard, no murmurs, rubs or gallops. LUNG:? Clear to percussion and auscultation ABD:? Normal bowel sounds, no organomegaly, masses or tenderness. EXTREMITIES:? No edema, no calf tenderness, normal peripheral pulses. NEURO:? Oriented and alert x3.? No focal weakness.? Reflexes symmetric.? Gait normal. SKIN:? There are no skin lesions evident. No objective signs of Raynaud's phenomenon. JOINT EXAM: ?? Cervical Spine:.? Full range of motion without pain; no tenderness. Thoracic Spine:.? No scoliosis.? No tenderness on palpation. Lumbar Spine:.? Alignment normal.? Full range of motion without pain, no tenderness. Chest Wall:.? No tenderness, swelling, increased warmth or erythema. Hands:.? Some limitation in range of motion with pain, tenderness, swelling, increased warmth and erythema. 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 Wrists:.? Improvement seen from prior visit DROM with pain swelling, warmth and erythema. Increased ROM, decreased swelling, mild tenderness. Reduced cysts near each styloid, a ganlion cyst to dorsum of right hand. Some deformity to wrists with deviations. Elbows:. Normal pain-free range of motion without tenderness, swelling, increased warmth or erythema. Shoulders:.?? Full range of motion without pain. No tenderness, weakness, swelling, increased warmth or erythema. Hips:.? Full range of motion without pain. Hip bursa:.? No tenderness. Knees:.?? Normal pain-free range of motion without tenderness, swelling, increased warmth or erythema.? There is no effusion or crepitation Ankles:.? Normal pain-free range of motion without tenderness, swelling, increased warmth or erythema. Feet:.? Normal pain-free range of motion without tenderness, swelling, increased warmth or erythema. 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: Code(s): Z79.631 - nursing home (current) use of antimetabolite agent Category: Medical (2) Seropositive rheumatoid arthritis of both wrists: Comment: 05/2023 Start MTX Code(s): M05.731 - Rheumatoid arthritis with rheumatoid factor of right wrist without organ or systems involvement; M05.732 - Rheumatoid arthritis with rheumatoid factor of left wrist without organ or systems involvement Category: Medical (3) Elevated uric acid in blood: Comment: 07/2023 Start Allopurinol Code(s): E79.0 - Hyperuricemia without signs of inflammatory arthritis and tophaceous disease Category: Medical Plan #SeroPos RA/Wrist Pain: +RF 827, +CCP >250. Clinically, Mr. Izquierdo presented with severe RA to his bilateral wrist imaging for the right wrist shows para-articular erosion along the radial aspect of proximal subchondral portion of the bone. He is now on MTX 15mg QWwith the Prednisone 5 mg QD and much improved. He is just 2 months on MTX so we will continue to monitor for more improvements.. 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 We can also increase the MTX in a few months. #Hyperuricema: Uric Acid 8.7: Per patient, he has had multiple gout episodes, mainly in the feet, in the past and since the start of 2023. We will Start Allopurinol to reduce the UA. He will take 100 mg per day for 1 month then increase to 200mg per day. 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 He will also take folic acid 1 mg per day. I discussed the other side effects of methotrexate can include but not limited to mouth sores, fatigue, nausea vomiting, and blood dyscrasias. He has been off alcohol for a year so I do not think there is any risk for starting him on methotrexate. I did discuss with patient that there is a possible side effect of liver toxicity on methotrexate and that alcohol can compound that risk. Therefore it is advisable to refrain from alcohol while on methotrexate. I spent 50 minutes reviewing history and diagnostics. evaluating and educating patient answering questions and documenting. f/u in 2 months with labs, Orders: Orders Erythrocyte Sedimentation Rate 3 Months M05.731 - Rheumatoid arthritis with rheumatoid factor of right wrist without organ or systems involvement, M05.732 - Rheumatoid arthritis with rheumatoid factor of left wrist without organ or systems involvement, Z79.631 - intermission coordinator (current) use of antimetabolite agent Complete Blood Count Auto Diff 3 Months M05.731 - Rheumatoid arthritis with rheumatoid factor of right wrist without organ or systems involvement, M05.732 - Rheumatoid arthritis with rheumatoid factor of left wrist without organ or systems involvement, Z79.631 - nursing home (current) use of antimetabolite agent Comprehensive Met. Panel 3 Months M05.731 - Rheumatoid arthritis with rheumatoid factor of right wrist without organ or systems involvement, M05.732 - Rheumatoid arthritis with rheumatoid factor of left wrist without organ or systems involvement, Z79.631 - nursing home (current) use of antimetabolite agent C Reactive Protein 3 Months M05.731 - Rheumatoid arthritis with rheumatoid factor of right wrist without organ or systems involvement, M05.732 - Rheumatoid arthritis with rheumatoid factor of left wrist without organ or systems involvement, Z79.631 - intermission coordinator (current) use of antimetabolite agent Medications: New allopurinol orally; Take 1 pill per day x 1 month then increase to 2 pills per day 90 tabs 2RF E79.0 - Hyperuricemia without signs of inflammatory arthritis and tophaceous disease Coding Level of Care Code Est Pt Level 4 (17806) Complex EM visit Add On G2211 Diagnoses 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
[2023-07-28 12:40] VITALS: BP 150/80; PULSE 99; O2SAT 97; BMI 19.9
== END 2023-07-28 13:25 | disposition home or self-care (01) ==
PROVIDERS: PCP Nurse Practitioner Primary Care; Visit Provider Nurse Practitioner Family
DX: Z79.631 Long term (current) use of antimetabolite agent (principal); M05.731 Rheumatoid arthritis with rheumatoid factor of right wrist without organ or systems involvement; M05.732 Rheumatoid arthritis with rheumatoid factor of left wrist without organ or systems involvement; E79.0 Hyperuricemia without signs of inflammatory arthritis and tophaceous disease
CPT/HCPCS: 99214; G2211

== ENCOUNTER → 2023-07-28 12:30 | Outpatient (BNVA) | payer OTHER, SELFPAY | PROVIDERS: PCP Nurse Practitioner Primary Care; Visit Provider Nurse Practitioner Family ==

== ENCOUNTER 2023-07-28 15:37 | Outpatient (REF) | payer OTHER, SELFPAY ==
--- NOTE | ~2023-07-28 | XR_ITS ---
EXAMINATION: XR CHEST CLINICAL INFORMATION: Rheumatoid arthritis, unspecified COMPARISON: Portable chest 06/16/2017 TECHNIQUE: 2 views of the chest were obtained. FINDINGS: No significant abnormality is noted involving the heart, lungs, mediastinum, bony thorax or soft tissues. XR/XR chest 2V IMPRESSION: No acute cardiopulmonary disease.
== END 2023-07-28 15:38 | disposition home or self-care (01) ==
LOC: HO.HMGCX 15:37
PROVIDERS: PCP Nurse Practitioner Primary Care; Visit Provider Nurse Practitioner Family
DX: M06.9 Rheumatoid arthritis, unspecified (principal); M79.89 Other specified soft tissue disorders
CPT/HCPCS: 71046

== ENCOUNTER 2023-10-07 07:58 | Outpatient (AMB) | payer OTHER, SELFPAY ==
--- NOTE | 2023-10-07 08:00 | MHC.PC.OV ---
Vital Signs 10/07/23 08:02 Height 5 ft 9 in Weight 127 lb BMI 18.8 BP 150/88 H Blood Pressure Location Lt brachial Position Sitting Pulse 74 Pulse Source Pulse Oximeter Pulse Oximetry (%) 98 Oxygen Delivery Method Room Air Intake Visit Reasons[place] [facility] Intake Note: pt is here for [place] [facility] Allergies No Known Allergies [No Known Allergies*] Allergy (Verified 10/07/23 08:11) Medication List - Last Reconciled 10/07/23 by VAL Lee acetaminophen ER (Tylenol Arthritis Pain) 1,300 mg PO Q12H albuterol sulfate 90 mcg/actuation 2 puffs inhalation Q6H PRN allopurinol orally; Take 1 pill per day x 1 month then increase to 2 pills per day folic acid 1 mg PO DAILY methotrexate sodium 15 mg (6 x 2.5 mg) PO QWEEK Tobacco use date assessed: 10/07/23 Dental Screening Dental Screen Date: 10/07/23 Did you have a dental visit in the last 12 months?: No Did you have a dental problem in the last 6 months where you did not have access to dental care?: No Was dental information given to patient?: No HPI HPI Comments History of Present Illness Details Patient is a 48-year-old male in today for a follow-up visit. Patient has establish care with Rheumatology for rheumatologic arthritis. Currently utilizing methotrexate sodium 15 mg per week, and allopurinol 200 mg daily. Patient states that he has improvement with inflammation however he does have pain in his bilateral hands wrists and bilateral feet. Patient will be given a short course of prednisone today to help with some of the pain. Patient will also be given some diclofenac sodium gel to apply small amount over his bilateral hands and wrist area. Patient has also been hypertensive at previous appointments in this appointment. Will start patient on losartan 25 mg p.o. daily. Been educated on the side effects of this medication. He will come back to the office in 2 weeks to have a blood pressure recheck. Patient denies dizziness, headache, chest pain, shortness a breath, nausea, vomiting, diarrhea. On physical exam patient does have bunion of right foot. Will obtain right foot x-ray as well as give referral to real estate investor. Patient has been educated about the importance of proper footwear. Patient would also like assistants to help quit smoking. Currently smokes about 1 pack per day. Will order nicotine replacement therapy for this. 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 Pain and swelling of toe of right foot Bilateral wrist pain Surgical History No pertinent past surgical history Family History Sister Substance use disorder Rheumatoid arthritis Mother Substance use disorder Brother Substance use disorder Father Substance use disorder Sister Rheumatoid arthritis Social History Housing: Apartment Alcohol intake: former Patient Tobacco Use Status: Current everyday Tobacco user Cigarettes Per Day: 10 e-Cigarette/Vaping Use: Currently Using service: No Current occupational status: employed Current occupation: [employer] Current occupational exposures/hazards: Yes Cognitive needs: No Hearing needs: No Vision needs: No Questionnaire Thrive Questionnaire Date Thrive assessed: 04/20/23 AUDIT C Alcohol Use Questionnaire (AUDIT-C) 1. How often do you have a drink containing alcohol?: Never Total Score: 0 MARLYN-7 AMB Questionnaire MARLYN-7 Date MARLYN - 7 assessed: 04/20/23 Source: Developed by Drs. Alfredo Vasquez, Tahimna Mccrary, Larry Cruz and colleagues, with an educational ángel from [employer]. Review of Systems Const All systems reviewed & are unremarkable except as noted in HPI and below Physical exam (Primary Care) Vital Signs: Last Vital Signs Pulse 74 10/07/23 08:02 BP 150/88 H 10/07/23 08:02 Pulse Ox 98 10/07/23 08:02 Oxygen Delivery Method Room Air 10/07/23 08:02 Care Plan Goal for BP management: Will start patient on losartan 25 mg p.o. daily Next steps: Follow-up in 2 weeks to have blood pressure recheck. BMI result Body Mass Index 18.8 Tobacco/Smoking Status: Tobacco use Status Tobacco use date assessed 10/07/23 10/07/23 08:06 Patient Tobacco Use Status Current everyday Tobacco 10/07/23 08:06 e-Cigarette/Vaping Use Currently Using 10/07/23 08:06 Thrive Assessment: Date of Thrive Assessment Date Thrive assessed 04/20/23 10/07/23 08:06 Const Other: Appearance: Alert.? Oriented X3.? No acute distress.? Head: Normocephalic. CVS: Normal heart rate and rhythm.? Pulses normal.? Respiratory: No respiratory distress.? Breath sounds normal.? Skin: Skin warm and dry.? Normal skin color.? Normal skin turgor.? Extremities: No lower extremity edema.?+ erythema of first metatarsal right foot. Neuro: Oriented X 3.? No motor deficit.? No sensory deficit. CN 2-12 intact Assessment and Plan Assessment & Plan (1) Right foot pain: Comment: Will order right foot x-ray. Will start patient on short course of prednisone. Patient has been educated on proper footwear. Code(s): M79.671 - Pain in right foot (2) Hypertension: Comment: Patient started on losartan 25 mg p.o. daily. Will follow-up in office in 2 weeks. Code(s): I10 - Essential (primary) hypertension Qualifiers: Hypertension type: primary hypertension Qualified Code(s): I10 - Essential (primary) hypertension Plan: Draw labs. (3) Nicotine dependence: Comment: Patient given nicotine replacement therapy at today's appointment. Code(s): F17.200 - Nicotine dependence, unspecified, uncomplicated Qualifiers: Nicotine product type: cigarettes Substance use status: uncomplicated Qualified Code(s): F17.210 - Nicotine dependence, cigarettes, uncomplicated Orders: Orders XR foot RT min 3V Today M79.671 - Pain in right foot Vitamin D 25-OH (D2 and D3) Today Z13.21 - Encounter for screening for nutritional disorder Vitamin B12 Today Z13.21 - Encounter for screening for nutritional disorder Referrals Podiatry Referral M79.671 - Pain in right foot Gastroenterology Referral Z12.11 - Encounter for screening for malignant neoplasm of colon Medications: New prednisone 40 mg (2 x 20 mg) PO DAILY 10 tabs 0RF diclofenac sodium 1% (Arthritis Pain (diclofenac)) apply to single elbow, wrist or hand; for hand includes palm/fingers/back of hand 2 grams topical QID 100 grams 0RF losartan 25 mg PO DAILY 30 tabs 0RF nicotine (polacrilex) 4 mg buccal Q8H PRN 72 ea 0RF nicotine cravings Coding Level of Care Code Est Pt Level 4 (68664) Diagnoses Right foot pain M79.671 Primary hypertension I10 Hypertension type: primary hypertension Cigarette nicotine dependence without complication F17.210 Nicotine product type: cigarettes Substance use status: uncomplicated Time Spent (min) 31
[2023-10-07 08:02] VITALS: BP 150/88; PULSE 74; O2SAT 98; BMI 18.8
== END 2023-10-07 08:56 | disposition home or self-care (01) ==
LOC: HO.HMGC 07:58
PROVIDERS: PCP Nurse Practitioner Primary Care; Visit Provider Nurse Practitioner Primary Care
DX: M79.671 Pain in right foot (principal); I10 Essential (primary) hypertension; F17.210 Nicotine dependence, cigarettes, uncomplicated
CPT/HCPCS: 99214

== ENCOUNTER 2023-10-22 13:02 | Outpatient (REF) | payer OTHER, SELFPAY ==
--- NOTE | ~2023-10-22 | XR_ITS ---
EXAMINATION: XR FOOT, RIGHT CLINICAL INFORMATION: Pain right foot. COMPARISON: None available. TECHNIQUE: AP, lateral, and oblique views of the right foot. FINDINGS: Very faint calcifications in the soft tissues of the ankle and foot, possibly vascular. Metatarsus adductus, hallux valgus with medial soft tissue bunion. Moderate degenerative changes in the first metatarsophalangeal joint. Erosive/cystic changes along the medial aspect of the first metatarsal head. Erosive/cystic changes along the medial and lateral aspects of the fifth metatarsal head. XR/XR foot RT min 3V IMPRESSION: 1. Metatarsus adductus, hallux valgus with medial soft tissue bunion. Moderate degenerative changes in the first metatarsophalangeal joint. 2. Erosive/cystic changes along the medial aspect of the first metatarsal head. Erosive/cystic changes along the medial and lateral aspects of the fifth metatarsal head. 3. Very faint calcifications in the soft tissues of the ankle and foot, possibly vascular. This study was presented today November 16, 2023 for interpretation. Stat results provided at this time as requested by referring provider.
[2023-10-22 15:15] LABS: MANUAL DIFF FLAG NO
[2023-10-22 15:18] LABS: Basophils Absolute Auto 0.1 X10*3/uL (0.0-0.2); Basophils Percent Auto 0.6 % (0-2); Eosinophils Absolute Auto 0.3 X10*3/uL (0.0-0.4); Hematocrit 41.8 % (42.0-52.0); Hemoglobin 14.5 g/dl (14.0-18.0); Imm Gran Abs Auto 0.04 X10*3/uL (0.00-0.03); Imm Gran Pct Auto 0.3 % (0.0-0.4); Lymphocytes Absolute Auto 2.8 X10*3/uL (1.2-4.9); Lymphocytes Percent Auto 24.4 % (20-40); Mean Corpuscular HGB Conc 34.7 g/dl (31.0-36.0); Mean Corpuscular Hemoglobin 32.7 pg (27.0-33.0); Mean Corpuscular Volume 94.1 fL (80.0-98.0); Mean Platelet Volume 9.4 fL (9.4-12.4); Monocytes Absolute Auto 0.8 X10*3/uL (0.1-1.2); Monocytes Percent Auto 6.8 % (2-11); Neutrophils Absolute Auto 7.5 x10*3/uL (2.0-8.3); Neutrophils Percent Auto 64.9 % (45-73); Platelet Count 246 X10*3/uL (160-400); Red Blood Count 4.44 X10*6/uL (4.60-5.80); Red Cell Distribution Width 14.3 % (11.0-16.0); White Blood Count 11.5 X10*3/uL (4.8-10.8)
[2023-10-22 15:44] LABS: Alanine Aminotransferase 28 U/L (0-40); Albumin Level 4.2 g/dL (3.5-5.0); Alkaline Phosphatase 82 U/L (39-117); Anion Gap 13 (12-20); Aspartate Amino Transferase 27 U/L (5-37); Bilirubin Total 0.4 mg/dL (0.0-1.0); Blood Urea Nitrogen 12 mg/dL (9-16); C Reactive Protein < 0.10 mg/dL (< or = 0.50); Calcium 9.5 mg/dL (8.4-10.2); Carbon Dioxide 22 mmol/L (22-29); Chloride 107 mmol/L (96-108); Estimated Glomerular Filt Rate > 60; Glucose Random 103 mg/dL (60-115); Potassium 3.7 mmol/L (3.3-5.1); Sodium 138 mmol/L (135-145); Total Protein 7.3 g/dL (6.5-8.0)
[2023-10-22 16:12] LABS: Vitamin B12 316 pg/mL (200-900)
[2023-10-22 16:42] LABS: Erythrocyte Sedimentation Rate 11 MM/HR (0-15)
[2023-10-27 14:12] LABS: Vitamin D 25-OH, D2 <4 ng/mL; Vitamin D 25-OH, D3 26 ng/mL; Vitamin D 25-OH, Total 26 ng/mL (30-100)
== END 2023-10-22 13:03 | disposition home or self-care (01) ==
LOC: HO.HMGCX 13:02
PROVIDERS: PCP Nurse Practitioner Primary Care; Referring Provider Nurse Practitioner Family; Visit Provider Nurse Practitioner Primary Care
DX: Z13.21 Encounter for screening for nutritional disorder (principal); M79.671 Pain in right foot; M05.731 Rheumatoid arthritis with rheumatoid factor of right wrist without organ or systems involvement; M05.732 Rheumatoid arthritis with rheumatoid factor of left wrist without organ or systems involvement; Z79.631 Long term (current) use of antimetabolite agent
CPT/HCPCS: 36415; 73630; 80053; 82306; 82607; 85025; 85652; 86140

== ENCOUNTER → 2023-11-10 14:11 | Outpatient (BNVA) | payer OTHER, SELFPAY | PROVIDERS: PCP Nurse Practitioner Primary Care; Visit Provider Student in an Organized Health Care Education/Training Program ==

== ENCOUNTER → 2023-11-10 14:11 | Outpatient (AMB) | payer OTHER, SELFPAY ==
--- NOTE | 2023-11-10 14:15 | A.OFFVIS_ITS ---
Vital Signs 11/10/23 14:19 Height 5 ft 9 in Weight 126 lb 5.198 oz BMI 18.7 BP 120/70 Blood Pressure Location Lt brachial Position Sitting Pulse 94 Pulse Source Pulse Oximeter Pulse Oximetry (%) 98 Oxygen Delivery Method Room Air Intake Visit Reasons: RA/lm Intake Note: Patient presents for RA. Allergies No Known Allergies [No Known Allergies*] Allergy (Verified 11/10/23 14:19) Medication List - Last Reconciled 11/10/23 by Chris Jose MD acetaminophen ER (Tylenol Arthritis Pain) 1,300 mg PO Q12H albuterol sulfate 90 mcg/actuation 2 puffs inhalation Q6H PRN diclofenac sodium 1% (Arthritis Pain (diclofenac)) 2 grams topical QID folic acid 1 mg PO DAILY losartan 25 mg PO DAILY methotrexate sodium 20 mg (8 x 2.5 mg) PO QWEEK nicotine (polacrilex) 4 mg buccal Q8H PRN HPI Comments Details: 48-year-old male with seropositive RA returns for follow-up. He has been taking methotrexate 15 mg weekly for about 5 months now. He also started allopurinol. He states that he continues to have intermittent flare-ups of pain and swelling of his wrists, the base of his thumbs, he also gets pain in his MTPs especially the 3rd and 4th toes on the right. He can not tell whether he improved with methotrexate. As he continues to have flare-ups. He also is complaining of fatigue. He does not know whether it is related to his rheumatoid arthritis, his methotrexate or allopurinol Initial history by Faby: Mr. Izquierdo 48yoM presents today for evaluation of Bilateral wrist pain and swelling with +RF and +CCP. The patient reports he has been having pain and swelling to the wrist for about 1 year. He has not been able to get medical attention consistently because he lacked insurance. He was treated with Prednsione for 5 days and celebrex daily and that has help with the pain and swelling. He also reports using Tylenol and Aleve to help with the pain and gets some relief from that. 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 He has a history of substance abuse for alcohol and illicit drugs. He says he has been off alcohol for 1 year now. He hopes to get help with the wrist because it very much affects his work. The patient denies pain and swelling other joints. He says his hands and wrists are his main concern The patient denied Raynaud's, dry eyes or dry mouth, skin rashes, uveitis. He says he has not had pericarditis or pleuritis he has no current concerns for short of breath or respiratory infections. 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 Pain and swelling of toe of right foot Bilateral wrist pain Surgical History No pertinent past surgical history Family History Sister Substance use disorder Rheumatoid arthritis Mother Substance use disorder Brother Substance use disorder Father Substance use disorder Sister Rheumatoid arthritis Social History Housing: Apartment Alcohol intake: former Patient Tobacco Use Status: Current everyday Tobacco user Cigarettes Per Day: 10 e-Cigarette/Vaping Use: Currently Using service: No Current occupational status: employed Current occupation: [employer] Current occupational exposures/hazards: Yes Cognitive needs: No Hearing needs: No Vision needs: No Review of Systems Const Reports fatigue Musc Reports deformity, Reports arthralgias, Reports joint swelling and Reports stiffness Endo Reports fatigue Physical Exam Vital Signs: Last Vital Signs Pulse 94 11/10/23 14:19 BP 120/70 11/10/23 14:19 Pulse Ox 98 11/10/23 14:19 Oxygen Delivery Method Room Air 11/10/23 14:19 BMI result Body Mass Index 18.7 Const General: cooperative, healthy appearing and comfortable Nutritional Appearance: thin Orientation/consciousness: patient oriented x3 Limitations: no limitations HEENT Head: Yes normocephalic and Yes atraumatic Mouth: moist mucous membranes Resp Effort & Inspection: normal respiratory effort and able to speak in complete sentences Auscultation: clear to auscultation bilaterally Cardio Rate: regular rate Rhythm: regular rhythm Skin General skin exam: no rashes or lesions noted Neuro General: patient oriented x3 Extrem Other: Osteoarthritic changes of both hands. Prominent ulnar styloid bilaterally Bilateral limited range of motion of wrists associated with pain in flexion and extension No swelling or tenderness however [place]-neck deformity right middle finger Right 3rd MCP swelling minimal tenderness No flexor tendon tenderness Deformity of right thumb Ulnar deviation at the MCPs right hand Left 2nd MCP swelling and tenderness No elbow pain with flexion-extension No shoulder pain with range of motion No knee pain with flexion-extension No ankle swelling or tenderness bilaterally Right foot bunion Left foot bunionette and a nodule on the inner aspect of the big toe normal nailfold capillaroscopy Results Reviewed Results Reviewed: Laboratory Tests 04/05/23 04/05/23 05/06/23 15:15 15:15 07:20 WBC RBC Hgb 14.4 Hct 43.4 ESR 26 H 25-OH Vitamin D Total TSH Rheumatoid Factor 827.6 H Cycl Citrul Peptide IgG >250 H 05/06/23 05/06/23 07:20 07:20 WBC 9.1 RBC 4.68 Hgb Hct ESR 25-OH Vitamin D Total 19 L TSH 1.84 Rheumatoid Factor Cycl Citrul Peptide IgG Ordering Physician: Kavon Berrios MD Date of Service: 04/05/23 Procedure(s): XR hand wrist RT Accession Number(s): [id number] cc: Physician,None ; Kavon Berrios MD~ EXAMINATION: XR WRIST, RIGHT XR HAND, RIGHT CLINICAL INFORMATION: Rheumatoid arthritis COMPARISON: None available. TECHNIQUE: PA, lateral, and oblique views of the right wrist and PA, lateral, and oblique views of the right hand FINDINGS: RIGHT WRIST: Triscaphoid joint: There is a para-articular erosion along the radial aspect of proximal subchondral portion of the bone. There is additional subchondral cystic change crossing the joint. There is severe uniform joint space loss throughout the joint. Second carpometacarpal joint subchondral cystic change noted at the base of the second metacarpal. There is diffuse joint space narrowing of the radiocarpal compartment. The remaining bones joints and soft tissues are normal. Alignment is normal. RIGHT HAND: The bones and soft tissues are normal. No fracture. Alignment is anatomic. Joint spaces are maintained. No erosions or soft tissue calcifications. 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 Additional arthrosis of the radiocarpal joint and second carpometacarpal joint RIGHT HAND: Findings in the wrist above. Otherwise bone and joints of the hand normal. Assessment & Plan Assessment & Plan (1) Seropositive rheumatoid arthritis of both wrists: Comment: +++RF+++CCP 05/2023 MTX Code(s): M05.731 - Rheumatoid arthritis with rheumatoid factor of right wrist without organ or systems involvement; M05.732 - Rheumatoid arthritis with rheumatoid factor of left wrist without organ or systems involvement Category: Medical Plan: This is a 48-year-old male with seropositive RA who presents for follow-up. This is his 1st visit with me. He used to follow-up with Faby Navarro. He is on methotrexate 15 mg weekly for the last 6 months now. Patient states that he feels about the same overall continues to have episodes of joint pain swelling and stiffness. On evaluation he has very few swollen joints. His inflammatory markers have normalized. I think RA is better controlled, likely degenerative arthritis of his wrists is symptomatic with activity. 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 States that he gets fatigue, not sure whether it is related to his RA versus methotrexate versus allopurinol. He can not provide a temporal relationship between methotrexate dose and fatigue. I had a long conversation with patient today about rheumatoid arthritis, osteoarthritis. Advised patient to a log of his flare-ups, take pictures of any swollen joints. 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 I do not see any compelling reason to continue with allopurinol and patient states that he has been having some fatigue. Will DC allopurinol at this time. 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 Panel 3 Months M05.79 - Rheumatoid arthritis with rheumatoid factor of multiple sites without organ or systems involvement, Z79.631 - residential (current) use of antimetabolite agent Hepatitis A,B,C Profile 3 Months M05.79 - Rheumatoid arthritis with rheumatoid factor of multiple sites without organ or systems involvement, Z79.631 - residential (current) use of antimetabolite agent C Reactive Protein 3 Months M05.79 - Rheumatoid arthritis with rheumatoid factor of multiple sites without organ or systems involvement, Z79.631 - residential (current) use of antimetabolite agent T Spot TB 3 Months M05.79 - Rheumatoid arthritis with rheumatoid factor of multiple sites without organ or systems involvement, Z79.631 - residential (current) use of antimetabolite agent Medications: Changed From methotrexate sodium 15 mg (6 x 2.5 mg) PO QWEEK 72 tabs 0RF M06.9 - Rheumatoid arthritis, unspecified, M79.674 - Pain in right toe(s), M79.89 - Other specified soft tissue disorders To methotrexate sodium Take 8 tabs once weekly dose into 4 tabs twice, about 12 hours apart 20 mg (8 x 2.5 mg) PO QWEEK 96 tabs 0RF M06.9 - Rheumatoid arthritis, unspecified, M79.674 - Pain in right toe(s), M79.89 - Other specified soft tissue disorders Refilled folic acid 1 mg PO DAILY 90 tabs 1RF Z79.631 - 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
[2023-11-10 14:19] VITALS: BP 120/70; PULSE 94; O2SAT 98; BMI 18.7
== END ==
PROVIDERS: PCP Nurse Practitioner Primary Care; Visit Provider Student in an Organized Health Care Education/Training Program
DX: M05.731 Rheumatoid arthritis with rheumatoid factor of right wrist without organ or systems involvement (principal); M05.732 Rheumatoid arthritis with rheumatoid factor of left wrist without organ or systems involvement; Z79.631 Long term (current) use of antimetabolite agent; E79.0 Hyperuricemia without signs of inflammatory arthritis and tophaceous disease
CPT/HCPCS: 99215

== ENCOUNTER 2024-04-07 11:53 | Outpatient (REF) | payer OTHER, SELFPAY ==
--- OUTSIDE RECORDS SUMMARY | 2024-04-07 11:56 | XMS_ITS ---
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 Generated for Printi ng/Faxing/eTransmitting on:?04/07/2024 11:55 AM EST
--- OUTSIDE RECORDS SUMMARY | 2024-04-07 11:56 | XMS_ITS ---
Author Organization [facility] Address [address] [facility] [place] [address] Care Team Providers Care Parimutuel Ticket Cashier Name Role Phone Lul Saba Primary Care Provider Unav ailable Alex Welch Unavailable [phone] REASON FOR VISIT Foot pain Medications Medication SIG (Take, Route, Fr equency, Duration) Notes Start Date End Date Status Losartan Potassium A ctive Methotrexate Active Folic Acid Active predniSONE Active Social History Tobacco Use: Social History Observation Description Date Details (start date - stop date) Current Smoker NA - NA Tobacco Use/Smoking Question Answer Notes Are you a: current smoker Alcohol Screen Question Answer Notes Did you have a drink containing alcohol in the p ast year? No Points 0 Interpretation Negative Tobacco use other than smoking: Question Answer Notes Are you an other tobacco user? Yes V ape Problems Problem Type SNOMED Code ICD Code Onset Dates Problem Status W/U Status Risk Notes Problem Acquired hallux valgus (80043894) Hallux valgus (acquired), left foot (M20.12) Active confirmed Problem Acquired hallux valgus (30502885) Hallux valgus (acquired), right foot (M20.11) Active confirmed Problem Rheumatic arthritis (5063029818) Rheumatoid arthritis involving both feet, unspecified whether rheumatoid factor present (M06.9) Active confirmed Vital Signs Height 5 ft 9 in in 03/23/2024 Weight 130 lbs 03/23/2024 BMI 19.2 kg/m2 03/23/2024 Blood pressure systolic 120 mm Hg 03/23/20 24 Blood pressure diastolic 80 mm Hg 024 Encounters Encounter Location Date Provider Diagnosis [facility] [place] [address] [place] [address] 03/23/2024 Alex Welch Pain in left foot M79.672 ; Pain in left ankle and joints of left foot M25.572 ; Bursitis of left foot M77.52 ; Hallux valgus (acquired), left foot M20.12 ; Pain in right foot M79.671 ; Pain in right ankle and joints of right foot M25.571 ; Bursitis of right foot M77.51 ; Hallux valgus (acquired), right foot M20.11 and Rheumatoid arthritis involving both feet, unspecified whether rheumatoid factor present M06.9 Assessments Encounter Date Diagnosis (ICD Code) Assessment Notes Treatment Notes Treatment Clinical Notes Section Notes 03/23/2024 Pain in left foot (ICD-10 - M79.672) 03/23/2024 Pain in left ankle and joints of left foot (ICD-10 - M25.572) 03/23/2024 Bursitis of left foot (ICD-10 - M77.52) 03/23/2024 Hallux valgus (acquired), left foot (ICD-10 - M20.12) 03/23/2024 Pain in right foot (ICD-10 - M79.671) 03/23/2024 Pain in right ankle and joints of right foot (ICD-10 - M25.571) 03/23/2024 Bursitis of right foot (ICD-10 - M77.51) 03/23/2024 Hallux valgus (acquired), right foot (ICD-10 - M20.11) 03/23/2024 Rheumatoid arthritis involving both feet, unspecified whether rheumatoid factor present (ICD-10 - M06.9) Plan Of Treatment Pending Test Test Name Order Date X ray : Foot, left 3V 03/23/2024 X ray : Foot, right 3V 03/23/2024 Next Appt Details Follow Up: prn, Reason: Progress Notes * [place] CARMONAOB:1975 (48 yo M)Acc No.[id number]:03/23/2024 Progress Notes Patient:?MATHEW Zack Provider:?Alex Welch DPM :1975???Age:48 Y???Sex:Male Eulalio e:03/23/2024 Address:[address] [place], [place] [address] , [id number] Pcp:ALBINA Bowser Subjective: * Chief Complaints: * ???Foot pain * HPI: ???Foot Pain:?Location:?Inside, Great toe joint, B/L.?Duration:?several months.?Course:?worse.?Aggravated:?any pressure.?Treatments:?rest/alter normal daily activity.? * ROS:?General/Constitutional:?Nausea?denies.?Vomiting?denies.?Hunger Thirst?denies.?Loss appetite?admits.?Chills?denies.?Fatigue?admits.?Fever?denies.?Night Sweats?denies.?Unexplained weight loss?admits.?Unexplained weight gain?denies.?HEENTM:?Dentures?denies.?Dizziness?admits.?Glasses/contacts?admits.?Retinopathy?de nies.?Blurred/double vision?denies.?TMJ?denies.?Discharge/drainage?denies.?Implants?denies.?Sore throat?denies.?Dental implants?denies.?Hard of hearing ?denies.?Difficulty chewing/swallowing/speaking?denies.?Nose bleeds?denies.?Sore mouth?denies.?Respiratory:?On Oxygen?denies.?Pneumonia/pleurisy?denies.?Bronchitis?denies.?Emphysema?denies.?C oughing?denies.?Cough blood?denies.?Shortness of breath?admits.?Wheezing?denies.?Cardiovascular:?Pacemaker?denies.?MVP?denies.?WPW?denies.?CHF?denies.?Heart attack?denies.?Septal defect?denies.?Rapid beat?denies.?Chest pain ?denies.?Atrial Fib.?denies.?Murmur/Palpitations?denies.?Gastrointestinal:?Hemorrhoids?denies.?Stomach/Abdominal pain?denies.?Dark blood stool?denies.?Irritable bowel ?denies.?Constipation?denies.?Diarrhea?denies.?Hematology:?Swelling?denies.?Clots?denies.?Varicose Veins?denies.?Bruising?denies.?Bleeding problem?denies.?Genitourinary:?Blood urine?denies.?Frequent/Painfu/urination/bladder control?denies.?Kidney stones?denies.?Infection (UTI)?denies.?Nephropathy?denies.?sex trans dis (STD)?denies.?Prostate?denies.?Musculoskeletal:?Hammertoes?admits.?Bunions?admits.?Back Pain?denies.?Muscle Cramps/ Resting?denies.?Muscle cramps / walking?denies.?Generalized aches and pains?denies.?Weakness?denies.?Integ.:?Schwartz?denies.?Scars?denies.?Corns/calluses?denies.?Ingrown nails?denies.?Painful nails?denies.?Open Sores?denies.?Rashes?denies.?Neurologic:?Difficulty sleeping?denies.?Brain disorder?denies.?Numbness?denies.?Balance trouble?denies.?Confusion?denies.?Fainting/blackouts?denies.?Tingling?denies.?Tr emors?denies.? * Medical History:? * Surgical History:?Denies Pas t Surgical History * Hospitalization/Major Diagno stic Procedure:?Denies Past Hospitalization * Family History:?Mother: dece ased, diagnosed with Other malignant neoplasm of unspecified site, Unspecified essential hypertension, Unspecified heart disease, Family history of arthritis.?Father: , diagnosed with Diabetic - NIDDM.?Siblings: kidney/liver disease, Foot problems, diagnosed with Diabetic - NIDDM, Unspecified essential hypertension, Family history of arthritis.? * Social History:?Tobacco Use:?Tobacco Use/Smoking?Are you a:?current smoker ?Tobacco use other than smoking?Are you an other tobacco user??Yes Vape ???Drugs/Alcohol:?Drugs?Have you used drugs other than those for medical reasons in the past 12 months??No ?Alcohol Screen?Did you have a drink containing alcohol in the past year??No ?Points?0 ?Interpretation?Negative ???Miscellaneous:?Caffeine: yes. ?Children: no. ?Exercise: no. ?Marital status: single. ?Occupation: [employer]. * Medications:?TakingFolic Aci d Losartan Potassium Methotrexate predniSONE Medication List reviewed and reconciled with the patientTaking Folic Acid Taking Losartan Potassium Taking Methotrexate Taking predniSONE Medication List reviewed and reconciled with the patient Objective: * Vitals:?Ht: 5 ft 9 in, Wt:13 0, BMI:19.2, Shoe size: 10.5W, BP:120/80mm Hg, Ht- cm: 175.26 cm, Wt-k.97 kg. * Examination: ???Orthopedic: ?MUSCLE STRENGTH:?5/5 all groups in a symmetrical fashion , B/L.?BUNION:? Medially prominent 1st MPJ, (+) Pain on palpation, inflammation present medially, Lateral tracking 1st MPJ incompletely reducible, B/L.?X-Rays - IMAGING REPORT: ?Clinical Indication(s):? Evaluate Biomechanical Deformity.?Views:?3 views of Foot, AP, LAT, MO, B/L??Taken by trained?Podiatric Video Tape Editor (?E.F.).?Findings:?normal bone and soft tissue density consistent for patients age and sex.?HAV:?increased First Intermetatarsal angle and Hallux Abductus angle consistent with Bunion deformity noted, hypertrophy of the dorsal and medial 1st MTH without subchondral cyst, metatarsus primus elevatus, mild, primus metatarsal protrusion, Negative 4 mm or greater, lesser metatarsus adductus, normal, tibial sesamoid position, 5, Left, 6, Right.?Fracture:?Negative fractures identified.?Neurological: ?SENSORY:?Neurological exam reveals intact sensorium, pain sensation normal, vibration sensation intact, pinprick sensation is normal in the lower extremities, Pt denies, anesthesia, burning, paresthesia, tingling, B/L.?TINEL'S COMPRESSION:? Negative, Saphenous nerve distribution, B/L.?DEEP TENDON REFLEXES:?Achilles, 2/4, B/L.?General Examination: ?GENERAL APPEARANCE:?Reveals a pleasant, alert, well-nourished, well- developed, well hydrated individual, who demonstrates proper attention to hygiene/body habitus, and is in no acute distress, Pt serves as own?historian for office visit today.?ORIENTED:?person, place, and time.?Vascular: ?DP PULSES(B):?3/4, B/L.?PT PULSES(B):?3/4, B/L.?CAPILLARY FILL TIME:?immediate, all digits, B/L.?TROPHIC CONDITION-TEXTURE/ELASTICITY/TURGOR/HAIR GROWTH(B):?normal, B/L.?TEMPERTURE GRADIENT(C):?warm to cool, proximal to distal, B/L.?PIGMENTATION:?normal, B/L.?EDEMA(C):?absent, B/L.?Dermatologic: ?SKIN FINDINGS:?Skin exam reveals normal texture, elasticity, and turgor. There are no masses. The interspaces are clear.? Assessment: * Assessment: 1.?Pain in left ankle and binta ints of left foot - M25.572???2.?Pain in left foot - M79.672 (Primary)???3.?Bursitis of left foot - M77.52???4.?Hallux valgus (acquired), left foot - M20.12???Specify :Acute problem, Complicated w/ Multiple Tx Options(4) Dx New problem, Prognosis Uncertain (4)???5.?Pain in right foot - M79.671???6.?Pain in right ankle and joints of right foot - M25.571???7.?Bursitis of right foot - M77.51? ?8.?Hallux valgus (acquired), right foot - M20.11???Specify :Dx New problem, Prognosis Uncertain (4) Acute problem, Complicated w/ Multiple Tx Options(4)???9.?Rheumatoid arthritis involving both feet, unspecified whether rheumatoid factor present - M06.9??? Plan: * Treatment: 2.?Pain in right foot?Imaging: X ray : Foot, right 3V * Procedure Codes:?05180 X-RAY EXAM OF LEFT FOOT 3V, Modifiers: 26 , NA77460 X-RAY EXAM OF RIGHT FOOT 3V, Modifiers: 26 , RT * Preventive Medicine:? ??Counseling:?Discussion:?-04: Office or other outpatient visit for the evaluation and management of a new patient, which required a medically appropriate history and/or examination and MODERATE level of DECISION MAKING for: 1 OR MORE CHRONIC PROBLEM(S) THATS WORSENING, 2 STABLE CHRONIC PROBLEMS, A NEWLY DIAGNOSED PROBLEM WITH UNCERTAIN PROGNOSIS, AN ACUTE COMPLICATED INJURY WITH MULTIPLE TREATMENT OPTIONS, OR AN ACUTE PROBLEM WITH ACCOMPANYING SYSTEMIC SYMPTOMS, THAT POSE(S) A MODERATE RISK OF MORBIDITY. THIS CONDITION MAY ALSO INCLUDE RX DRUG MANAGEMENT, OR A DECISON FOR MINOR SURGERY. The visit on the day of the encounter encompassed interpreting the data and educating the patient as to the nature of their condition, treatment options available according to their individual PMH, meds, allergies, and overall health/living conditions, as well as any potential risks or complications that may occur from a failure to adhere to, and participate in, the recommended course of therapy. The discussion included a complete verbal, and/or written explanation of the examination results, any x-rays taken, the proposed diagnosis, and outline of the treatment plan. A schedule for future care needs was also explained. The patient verbalized an understanding of the instructions at this time and agreed to be an active participant in their treatment. If the patient should think of any questions or concerns after the visit, I have encouraged the patient to call the office.?Digital Treatment:?I explained to the patient the risks/benefits of all the different treatment options for their pain including: No treatment at all, Rest, Ice, New/supportive/wider/deeper Shoegear, Digital Padding/Strapping/Taping/Bracing/Gel protective sleeves, Foot/Ankle AFO Bracing, Stretching exercises, Deep Tissue Massage, Arch support/shoe inserts with splay metatarsal padding, and Custom orthoses. I insisted that any digital devices be removed daily and not worn overnight for safety. The patient is to carefully examine the toes daily for any skin irritation while using any splinting or padding device. The advantages and disadvantages of each option were discussed and the patients questions re: shoegear, padding, custom vs prefabricated inserts, activity level, and consistency in home treatment regimens for optimal success were answered to their verbally confirmed satisfaction.?Discussion for Bunion sx:?Several different types of Bunion surgeries were discussed with the patient, including, but not limited to: Modified Hammonds bone removal and soft tissue release/realignment, Dariusz osteotomy with soft tissue release/realignment and internal fixation, Shaft v Base wedge osteotomies with internal fixation, and Lapidus joint fusion procedures with internal fixation. We discussed the risks of having surgery (described below) vs not having surgery (persistent pain, deformity, risk for skin ulceration/infection, loss of toe) as well as the potential surgical complications including, but not limited to: pain, swelling, bleeding, scarring, numbness, infection, delayed/non healing, floppy/unstable/shorthened toe, recurrence, failure of the procedure, overcorrection leading to plantarflexed/downward/upward positioned toe, recurrence, need for further surgery, as well as the possibility for loss of the toe itself. We discussed the use of IV/Local regional anesthesia, and the usual post-op course for healing. No guarentees were given. The patient verbally indicated a full understanding of the above conversation, and any other of their questions were answered to their satisfaction, Due to patients PMH of Rheumatoid and immunosuppressive medication, and current tobacco social history I do not recommend moving forward with surgery until the patient is at least 3 months of documented tobacco product free.?Orthotics:?I explained to the patient the benefits of OT use. I explained that orthoses are medically necessary to decrease the foot pain through proper mechanical control, support of their foot, cushion the forefoot by supplementing the soft tissue, possibly delay of the progression of the bunion deformity, possibly prevent surgery, Prefabricated orthoses ( Comfort Plus ( E ), ), were dispensed. The inserts were comfortably fit to the patients feet in both weight-bearing and non-weight bearing attitudes. The patient was instructed to increase the amount of time they were wearing the inserts, starting with one hour the first day and gradually increasing the amount of time worn until they are using them full time babysitter and in all activities. They were asked to call the office if any signs of irritation were noted such as redness, blistering or callous formation. Instuctions were given for their usage and proper break-in/wear/care. Pt expressed comfort with and tolerance to inserts dispensed.?P.R.I.C.E.:?The patient was counseled on the use of P.R.I.C.E. and NSAIDS (if well tolerated) to aid in the recovery from their painful condition , Recommended Topical analgesics including Biofreeze/Aspercream/Voltaren gel.?Shoe Gear Counseling:?The patient and I reviewed the types of shoes they should be wearing. My recommendation included obtaining a well-fitted shoe with a good supportive, non-foldable nor twistable sole, plenty of toe/room for the forefoot, and proper arch support. Based on todays examination, I recommended the patient look for new shoes, by having their feet professionally measured. We discussed that generally the best time of the day for a shoe fitting is the afternoon. Different shoes types and brands to best match the patients occupation and vocation were discussed. Specific brand selection will be up to the patient, their individual foot condition/deformities, and fit. The patient and I reviewed the standard new shoe break in period by wearing them for a few hours a day while checking for redness or sores as wear time is increased. The patient verbally confirmed to understanding the information discussed.? * Follow Up:?prn * Images: * Sign off status: Completed true * Provider:?Alex Welch DPM Date:?2023 Generated for Irais cortez/Nolvia/Melitting on:?04/07/2024 11:55 AM EST History and Physical Notes * HPI (History of Present Illness) Category Sub-Category Detail Notes Category Not es Foot Pain Location: Inside, Great toe joint, B/L Duration: several months Course: worse Aggravated: any pressure Treatments: rest/alter normal da derrick activity Examination Category Sub-Category Detail Notes Category Not es Neurological SENSORY: Neurological exa m reveals intact sensorium, pain sensation normal, vibration sensation intact, pinprick sensation is normal in the lower extremities, Pt denies, anesthesia, burning, paresthesia, tingling, B/L TINEL'S COMPRESSION: Negative, Saphenous nerve distribution, B/L DEEP TENDON REFLEXES: Achilles, 2/4, B/L Dermatologic SKIN FINDINGS: Skin exam reveal s normal texture, elasticity, and turgor. There are no masses. The interspaces are clear Orthopedic BUNION: Medially promine nt 1st MPJ, (+) Pain on palpation, inflammation present medially, Lateral tracking 1st MPJ incompletely reducible, B/L MUSCLE STRENGTH: 5/5 all groups in a symmetrical fashion , B/L General Examination GENERAL APPEARANCE: Reveals a pleasant, alert, well- nourished, well-developed, well hydrated individual, who demonstrates proper attention to hygiene/body habitus, and is in no acute distress, Pt serves as own historian for office visit today ORIENTED: person, place, and t misty Vascular DP PULSES (B): 3/4, B/L PT PULSES (B): 3/4, B/L CAPILLARY FILL TIME: immediate, all digi ts, B/L TEMPERTURE GRADIENT (C): warm to cool, p roximal to distal, B/L TROPHIC CONDITION-TEXTURE/ELASTICITY/TURGOR/HAIR GROWTH (B): normal, B/L EDEMA (C): absent, B/L PIGMENTATION: normal, B/L X-Rays - IMAGING REPORT Findings: normal b one and soft tissue density consistent for patients age and sex Fracture: Negative fractures i dentified HAV: increased First Inte rmetatarsal angle and Hallux Abductus angle consistent with Bunion deformity noted, hypertrophy of the dorsal and medial 1st MTH without subchondral cyst, metatarsus primus elevatus, mild, primus metatarsal protrusion, Negative 4 mm or greater, lesser metatarsus adductus, normal, tibial sesamoid position, 5, Left, 6, Right Views: 3 views of Foot, AP, LAT, MO, B/L Taken by trained Podiatric Video Tape Editor ( E.F.) Clinical Indication(s): Evaluate Biomech anical Deformity
--- OUTSIDE RECORDS SUMMARY | 2024-04-07 11:56 | XMS_ITS | Patient Health Record ---
Author Organization [facility] Address [address] [facility] [place] [address] Care Team Providers Care Automobile Repair Service Estimator Name Role Phone Lul Saba Primary Care Provider Unav ailable Alex Welch Unavailable [phone] Reason For Referral No Information Medications Medication SIG (Take, Route, Fr equency, [...] Status Risk Notes Problem Acquired hallux valgus (98527921) Hallux valgus (acquired), left foot (M20.12) Active confirmed Problem Acquired hallux valgus (98685330) Hallux valgus (acquired), right foot (M20.11) Active confirmed Problem Rheumatic arthritis (8420189757) Rheumatoid arthritis involving both feet, unspecified whether rheumatoid factor present (M06.9) Active confirmed Vital Signs Blood pressure diastolic 80 mm Hg 03/23/2024 Height 5 ft 9 in in 03/23/2024 Blood pressure systolic 120 mm Hg 03/23/2024 Weight 130 lbs 03/23/2024 BMI 19.2 kg/m2 03/23/2024 Encounters [facility]counter [facility] Date [facility] [address] [facility]/23[facility]24 Alex Welch Pain in left foot [...] feet, unspecified whether rheumatoid factor present M06.[address] [address] 01/12/2024 Alex Welch [address] [address] 03/23/2024 Alex Welch Assessments Encounter Date Diagnosis (ICD Code) Assessment Notes Treatment Notes Treatment Clinical Notes Section Notes 03/23/2024 Pain in left ankle and joints of left foot (ICD-10 - M25.572) 03/23/2024 Pain in left foot (ICD-10 - M79.672) 03/23/2024 Bursitis of left foot (ICD-10 - [...] X ray : Foot, right 3V 03/23/2024 Insurance Providers Payer Name Payer Address Payer Phone Subscriber Number Group Number Insured Name Patient Relationship to Insured Coverage Start Date Coverage End Date [facility] [address] [place] [address] [phone] [id number] Zack Izquierdo Self - patient is the insured Medical (General) History Medical History History ICD Code Anxiety Arthritis - Rheumatoid Depression High Blood Pressure Numbness Measles Chicken pox
[2024-04-07 13:35] LABS: MANUAL DIFF FLAG NO
[2024-04-07 13:37] LABS: Basophils Absolute Auto 0.1 X10*3/uL (0.0-0.2); Basophils Percent Auto 0.6 % (0-2); Eosinophils Absolute Auto 0.2 X10*3/uL (0.0-0.4); Eosinophils Percent Auto 2.3 % (0-4); Hematocrit 37.3 % (42.0-52.0); Imm Gran Abs Auto 0.05 X10*3/uL (0.00-0.03); Imm Gran Pct Auto 0.5 % (0.0-0.4); Lymphocytes Absolute Auto 2.5 X10*3/uL (1.2-4.9); Lymphocytes Percent Auto 23.6 % (20-40); Mean Corpuscular HGB Conc 34.9 g/dl (31.0-36.0); Mean Corpuscular Hemoglobin 32.4 pg (27.0-33.0); Mean Platelet Volume 9.8 fL (9.4-12.4); Monocytes Absolute Auto 0.8 X10*3/uL (0.1-1.2); Monocytes Percent Auto 7.4 % (2-11); Neutrophils Absolute Auto 6.9 x10*3/uL (2.0-8.3); Neutrophils Percent Auto 65.6 % (45-73); Platelet Count 215 X10*3/uL (160-400); Red Blood Count 4.01 X10*6/uL (4.60-5.80); Red Cell Distribution Width 13.6 % (11.0-16.0); White Blood Count 10.5 X10*3/uL (4.8-10.8)
[2024-04-07 13:57] LABS: Alanine Aminotransferase 13 U/L (0-40); Albumin Level 3.7 g/dL (3.5-5.0); Alkaline Phosphatase 88 U/L (39-117); Anion Gap 11 (12-20); Aspartate Amino Transferase 25 U/L (5-37); Bilirubin Total 0.4 mg/dL (0.0-1.0); Blood Urea Nitrogen 8 mg/dL (9-16); C Reactive Protein 2.06 mg/dL (< or = 0.50); Calcium 8.8 mg/dL (8.4-10.2); Carbon Dioxide 24 mmol/L (22-29); Chloride 108 mmol/L (96-108); Estimated Glomerular Filt Rate > 60; Glucose Random 105 mg/dL (60-115); Potassium 3.8 mmol/L (3.3-5.1); Sodium 139 mmol/L (135-145)
[2024-04-07 14:11] LABS: Erythrocyte Sedimentation Rate 30 MM/HR (0-15)
[2024-04-09 04:22] LABS: HBc Num1 0.07 S/CO (0.00-0.79); HBsAGNum1 0.39 S/CO (0.00-0.99); Hepatitis A Antibody IgM 0.19 Index (0-0.79); Hepatitis B Core Antibody Nonreactive (Nonreactive); Hepatitis B Surface Antigen Negative (Negative); ~HepC Num1 0.21 S/CO (0.00-0.79); ~Hepatitis A Antibody IgM Nonreactive (Nonreactive); ~Hepatitis B Surface Antibody NONREACTIVE (Nonreactive); ~Hepatitis C Antibody Nonreactive (Nonreactive)
== END 2024-04-07 11:54 | disposition home or self-care (01) ==
LOC: HO.HMGCLDS 11:53
PROVIDERS: PCP Nurse Practitioner Family; Visit Provider Student in an Organized Health Care Education/Training Program
DX: M05.79 Rheumatoid arthritis with rheumatoid factor of multiple sites without organ or systems involvement (principal); Z79.631 Long term (current) use of antimetabolite agent; M05.731 Rheumatoid arthritis with rheumatoid factor of right wrist without organ or systems involvement; M05.732 Rheumatoid arthritis with rheumatoid factor of left wrist without organ or systems involvement
CPT/HCPCS: 36415; 80053; 85025; 85652; 86140; 86704; 86706; 86709; 86803; 87340

== ENCOUNTER 2024-04-19 13:05 | Outpatient (AMB) | payer OTHER, SELFPAY ==
[2024-04-19 13:08] VITALS: BP 120/60; PULSE 94; BMI 19.5
--- NOTE | 2024-04-19 13:08 | MHC.OFFVIS ---
Vital Signs 04/19/24 13:08 Height 5 ft 9 in Weight 132 lb 0.91 oz BMI 19.5 BP 120/60 Blood Pressure Location Lt brachial Position Sitting Pulse 94 Pulse Source Pulse Oximeter Intake Visit Reasons: RA Intake Note: Patient last seen by Doctor Chris Jose on 11/10/23. Presents today for RA follow up and test results. 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 Accompanied by: Self / Same As Patient Allergies No Known Allergies [No Known Allergies*] Allergy (Verified 04/19/24 13:11) Medication List - Last Reconciled 04/19/24 by Chris Jose MD acetaminophen ER (Tylenol Arthritis Pain) 1,300 mg PO Q12H albuterol sulfate 90 mcg/actuation 2 puffs inhalation Q6H PRN diclofenac sodium 1% (Arthritis Pain (diclofenac)) 2 grams topical QID folic acid 1 mg PO DAILY losartan 25 mg PO DAILY methotrexate sodium 25 mg (10 x 2.5 mg) PO QWEEK nicotine (polacrilex) 4 mg buccal Q8H PRN prednisone Take 3 tabs daily for 1 week then 2 tabs daily for 1 week, 1 tab daily for 2 weeks then half a tab daily for 2 weeks then stop HPI Comments Details: 49-year-old male with seropositive RA returns for follow-up. In March patient ran out of his methotrexate for 2 weeks, it was not renewed as he had not done his safety blood work, towards the end of March he started having a flare-up, he was having pain swelling of his wrists and fingers. I gave him a prednisone taper, it only helped a little bit. He continues to have pain and swelling of his wrists and fingers, morning stiffness lasting 3 hours Initial history by Faby: Mr. Izquierdo 48yoM presents today for evaluation of Bilateral wrist pain and swelling with +RF and +CCP. The patient reports he has been having pain and swelling to the wrist for about 1 year. He has not been able to get medical attention consistently because he lacked insurance. He was treated with Prednsione for 5 days and celebrex daily and that has help with the pain and swelling. He also reports using Tylenol and Aleve to help with the pain and gets some relief from that. 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 He has a history of substance abuse for alcohol and illicit drugs. He says he has been off alcohol for 1 year now. He hopes to get help with the wrist because it very much affects his work. The patient denies pain and swelling other joints. He says his hands and wrists are his main concern The patient denied Raynaud's, dry eyes or dry mouth, skin rashes, uveitis. He says he has not had pericarditis or pleuritis he has no current concerns for short of breath or respiratory infections. 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 Pain and swelling of toe of right foot Bilateral wrist pain Surgical History No pertinent past surgical history Family History Sister Substance use disorder Rheumatoid arthritis Mother Substance use disorder Brother Substance use disorder Father Substance use disorder Sister Rheumatoid arthritis Social History Housing: Apartment Alcohol intake: former Patient Tobacco Use Status: Current everyday Tobacco user Cigarettes Per Day: 10 e-Cigarette/Vaping Use: Currently Using service: No Current occupational status: employed Current occupation: [employer] Current occupational exposures/hazards: Yes Cognitive needs: No Hearing needs: No Vision needs: No Review of Systems Musc Reports deformity, Reports arthralgias, Reports joint swelling and Reports stiffness Physical Exam Vital Signs: Last Vital Signs Pulse 94 04/19/24 13:08 BP 120/60 04/19/24 13:08 BMI result Body Mass Index 19.5 Const General: cooperative, healthy appearing and comfortable Nutritional Appearance: thin Orientation/consciousness: patient oriented x3 Limitations: no limitations HEENT Head: Yes normocephalic and Yes atraumatic Mouth: moist mucous membranes Resp Effort & Inspection: normal respiratory effort and able to speak in complete sentences Auscultation: clear to auscultation bilaterally Cardio Rate: regular rate Rhythm: regular rhythm Skin General skin exam: no rashes or lesions noted Neuro General: patient oriented x3 Extrem Other: Osteoarthritic changes of both hands. Prominent ulnar styloid bilaterally Significant wrist swelling and tenderness bilaterally Bilateral limited range of motion of wrists associated with pain in flexion and extension Multiple tender MCPs without significant swelling Bilateral 2nd through 5th PIP swelling and tenderness [place]-neck deformity right middle finger Deformity of right thumb Ulnar deviation at the MCPs right hand Deformity of left 5th finger No elbow pain with flexion-extension No shoulder pain with range of motion No knee pain with flexion-extension No ankle swelling or tenderness bilaterally Right foot bunion Left foot bunionette and a nodule on the inner aspect of the big toe normal nailfold capillaroscopy Assessment & Plan Assessment & Plan (1) Seropositive rheumatoid arthritis of both wrists: Comment: +++RF+++CCP 05/2023 MTX Code(s): M05.731 - Rheumatoid arthritis with rheumatoid factor of right wrist without organ or systems involvement; M05.732 - Rheumatoid arthritis with rheumatoid factor of left wrist without organ or systems involvement Category: Medical Plan: This is a 49-year-old male with seropositive RA who presents for follow-up. He is having a flare-up of his RA. Need to escalate his methotrexate Increase methotrexate to 25 mg once weekly, split dose Continue folic acid 1 mg daily Prednisone taper for relief . He declined wrist injections today Labs before next visit in 3 months (2) FPC methotrexate user: Code(s): Z79.631 - FPC (current) use of antimetabolite agent Category: Medical Plan: Monitor safety lab (3) Elevated uric acid in blood: Comment: 07/2023 Start Allopurinol. DC'd 11/2023 Code(s): E79.0 - Hyperuricemia without signs of inflammatory arthritis and tophaceous disease Category: Medical Plan: Patient does not provide a clinical history consistent with gout. I discontinued his allopurinol last visit Plan I spent 27 minutes reviewing patient's chart, evaluating patient, ordering diagnostic workup, counseling patient and documenting in the chart Medications: Changed From methotrexate sodium 15 mg (6 x 2.5 mg) PO QWEEK 72 tabs 0RF M06.9 - Rheumatoid arthritis, unspecified, M79.674 - Pain in right toe(s), M79.89 - Other specified soft tissue disorders To methotrexate sodium Take 5 tabs twice, 12-24 hours apart 25 mg (10 x 2.5 mg) PO QWEEK 120 tabs 0RF M06.9 - Rheumatoid arthritis, unspecified, M79.674 - Pain in right toe(s), M79.89 - Other specified soft tissue disorders From prednisone 2 tabs daily for 1 week then 1 tab daily for 1 week then stop 21 tabs 0RF To prednisone Take 3 tabs daily for 1 week then 2 tabs daily for 1 week, 1 tab daily for 2 weeks then half a tab daily for 2 weeks then stop 57 tabs 0RF Refilled folic acid 1 mg PO DAILY 90 tabs 1RF Z79.631 - FPC (current) use of antimetabolite agent Coding Level of Care Code Est Pt Level 4 (66621) Complex EM visit Add On G2211 Diagnoses Seropositive rheumatoid arthritis of both wrists M05.731; M05.732 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
--- OUTSIDE RECORDS SUMMARY | 2024-04-19 14:34 | XMS_ITS ---
[facility] Address [address] [facility] [place] [address] Care Team Providers Care Paper Mill Manager Name Role Phone Lul Saba Primary Care Provider Unav ailable Alex Welch Unavailable [phone] REASON FOR VISIT Foot pain Medications Medication [...] Status Risk Notes Problem Acquired hallux valgus (80969946) Hallux valgus (acquired), left foot (M20.12) Active confirmed Problem Acquired hallux valgus (62336609) Hallux valgus (acquired), right foot (M20.11) Active confirmed Problem Rheumatic arthritis (8899284147) Rheumatoid arthritis involving both feet, unspecified whether rheumatoid factor present (M06.9) Active confirmed Vital Signs Height 5 ft 9 in in 03/23/2024 Weight 130 lbs 03/23/2024 BMI 19.2 kg/m2 03/23/2024 Blood pressure systolic 120 mm Hg 03/23/20 24 Blood pressure diastolic 80 mm Hg 024 Encounters Encounter Location Date Provider Diagnosis [facility] [address] [place] [address] 03/23/2024 Alex Welch Pain in left foot [...] Notes * Bismark CARMONAOB:1975 (48 yo M)Acc No.[id number]:03/23/2024 Progress Notes Patient:?MATHEW Zack Provider:?Alex Welch DPM :1975???Age:48 Y???Sex:Male Eulalio e:03/23/2024 Address:[address] [place], [place] [address] , [address] [id number] Pcp:ALBINA Bowser Subjective: * Chief Complaints: * [...] Foot, AP, LAT, MO, B/L??Taken by trained?Podiatric Tile Inspector (?E.F.).?Findings:?normal bone and soft tissue density consistent [...] ray : Foot, right 3V * Procedure Codes:?90750 X-RAY EXAM OF LEFT FOOT 3V, Modifiers: 26 , [id number] X-RAY EXAM OF RIGHT FOOT 3V, Modifiers: [...] time worn until they are using them 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 They were asked [...] Provider:?Alex Welch DPM Date:?2023 Generated for Irais cortez/Nolvia/Joyce on:?04/19/2024 02:34 PM EST History and Physical Notes * HPI [...] LAT, MO, B/L Taken by trained Podiatric Tile Inspector ( E.F.) Clinical Indication(s): Evaluate Biomech anical Deformity
--- OUTSIDE RECORDS SUMMARY | 2024-04-19 14:34 | XMS_ITS ---
Author Organization [facility] Address [address] [place] [address] Care Team Providers Care Air Quality Consultant Name Role Phone Lul Saba Primary Care Provider Unav ailable Alex Welch Unavailable [phone] REASON FOR VISIT BUY Comfort Plus w/MET Pad (REDI-T) E / m 10-10.5 Encounters Encounter Location Date Provider Diagnosis [facility] [address] [place] [address] 03/23/2024 Alex Welch Plan Of Treatment No Information Progress Notes * MATHEWBismarkOB:1975 (48 yo M)Acc No.[id number]:03/23/2024 Patient:?Zack CARMONA :1975???Age:48 Y???Sex:Male Address:[address] [place] [address], [address] [facility], [place] [address] * true * Date:? Generated for Printi ng/Favag/eTransmitting on:?04/19/2024 02:34 PM EST
--- OUTSIDE RECORDS SUMMARY | 2024-04-19 14:35 | XMS_ITS | Patient Health Record ---
Author Organization [facility] Address [address] [place] [address] Care Team Providers Care Transit Police Officer Name Role Phone Lul Saba Primary Care Provider Unav ailable Alex Welch Unavailable [phone] Reason For Referral No Information Medications Medication [...] Status Risk Notes Problem Acquired hallux valgus (45292102) Hallux valgus (acquired), left foot (M20.12) Active confirmed Problem Acquired hallux valgus (58768914) Hallux valgus (acquired), right foot (M20.11) Active confirmed Problem Rheumatic arthritis (8476927552) Rheumatoid arthritis involving both feet, unspecified whether rheumatoid factor present (M06.9) Active confirmed Vital Signs Blood pressure diastolic 80 mm Hg 03/23/2024 Height 5 ft 9 in in 03/23/2024 Blood pressure systolic 120 mm Hg 03/23/2024 Weight 130 lbs 03/23/2024 BMI 19.2 kg/m2 03/23/2024 Encounters Encounter Location Date [facility] [address] 03/23/2024 Alex Welch Pain in left foot [...] feet, unspecified whether rheumatoid factor present M06.[address] [address] 01/12/2024 Alex Welch [address] [address] 03/23/2024 Alex Welch Assessments Encounter Date Diagnosis [...] Insured Coverage Start Date Coverage End Date [facility] [address] [place] [address] [phone] [id number] Zack Izquierdo Self - patient is the insured Medical (General) History Medical History History ICD Code Anxiety Arthritis - Rheumatoid Depression High Blood Pressure Numbness Measles Chicken pox
--- OUTSIDE RECORDS SUMMARY | 2024-04-19 14:35 | XMS_ITS ---
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 Generated for Printi ng/Favag/eTransmitting on:?04/19/2024 02:34 PM EST
== END 2024-04-19 14:12 | disposition home or self-care (01) ==
PROVIDERS: Visit Provider Student in an Organized Health Care Education/Training Program
DX: M05.731 Rheumatoid arthritis with rheumatoid factor of right wrist without organ or systems involvement (principal); M05.732 Rheumatoid arthritis with rheumatoid factor of left wrist without organ or systems involvement; Z79.631 Long term (current) use of antimetabolite agent; E79.0 Hyperuricemia without signs of inflammatory arthritis and tophaceous disease
CPT/HCPCS: 99214

== ENCOUNTER → 2024-04-19 13:05 | Outpatient (BNVA) | payer OTHER, SELFPAY | PROVIDERS: Visit Provider Student in an Organized Health Care Education/Training Program ==

== ENCOUNTER 2024-05-01 14:05 | Outpatient (AMB) | payer OTHER, SELFPAY ==
[2024-05-01 14:07] VITALS: BP 122/72; PULSE 90; O2SAT 98; BMI 19.2
--- NOTE | 2024-05-01 14:07 | A.OFFPC_ITS ---
Vital Signs 05/01/24 14:07 Height 5 ft 9 in Weight 130 lb BMI 19.2 BP 122/72 Blood Pressure Location Rt brachial Position Sitting Pulse 90 Pulse Source Pulse Oximeter Pulse Oximetry (%) 98 Intake Visit Reasons: MICHAEL - from [place] --Per Office Request Intake Note: pt is here [facility], transfer from [facility]. 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 Accompanied by: Self / Same As Patient Allergies No Known Allergies [No Known Allergies*] Allergy (Verified 05/01/24 15:35) Medication List - Last Reconciled 05/01/24 by KAITLIN Carbone acetaminophen ER (Tylenol Arthritis Pain) 1,300 mg PO Q12H albuterol sulfate 90 mcg/actuation 2 puffs inhalation Q6H PRN diclofenac sodium 1% (Arthritis Pain (diclofenac)) 2 grams topical QID folic acid 1 mg PO DAILY losartan 25 mg PO DAILY methotrexate sodium 25 mg (10 x 2.5 mg) PO QWEEK nicotine (polacrilex) 4 mg buccal Q8H PRN prednisone Take 3 tabs daily for 1 week then 2 tabs daily for 1 week, 1 tab daily for 2 weeks then half a tab daily for 2 weeks then stop sildenafil 25 mg PO DAILY PRN 30 days Tobacco use date assessed: 05/01/24 Dental Screening Dental Screen Date: 05/01/24 Did you have a dental visit in the last 12 months?: Yes Did you have a dental problem in the last 6 months where you did not have access to dental care?: No Was dental information given to patient?: Patient has dentist HPI MICHAEL - from [place] --Per Office Request HPI Details Chief Complaint The patient presents for transition of care related to hypertension. History of Present Illness The patient is a 49-year-old male presenting with a transition of care for the management of essential hypertension. He was previously under the care of a different physician who has since left the practice. The patient reports that his blood pressure is currently stable and denies any chest pain, shortness of breath, headaches, or blurred vision. There is no history of complications related to hypertension. Additionally, the patient reports a history of erectile dysfunction, for which sildenafil will be trialed. The patient also has rheumatoid arthritis, for which he is currently under the care of a implementation manager and is taking methotrexate. Social History - Multilingual patient. No specific deta ils regarding social determinants of health were discussed. Health Maintenance - Recommendation for a colonoscopy elías delarosa by gastroenterology, which the patient has not yet completed. Review of Systems - Cardiovascular: Denies chest pain or s hortness of breath. - Neurologic: Denies headaches or blurre d vision. Physical Exam General: Cooperative, healthy appearing, comfortable, no acute distress and well developed Orientation: Patient oriented x3 Limitations: No limitations Head: Normal to inspection Ears: Hearing grossly normal bilaterally Nose: Normal external nose present Face and sinus: Normal facial exam Eyes: Appearance normal, both eyes and all related structures Neck: Normal visual inspection and Yes full ROM Respiratory: Normal respiratory effort and able to speak in complete sentences. Clear to auscultation bilaterally Cardiovascular: Regular rate and rhythm. Normal S1 and S2 GI: Normal to inspection. Soft to palpation and nontender Skin: No rashes or lesions noted Neuro: Patient oriented x3 Extremities: Skinny stature. No edema Results Plan - For essential hypertension, continue m onitoring with stable blood pressure reported. Labs have been ordered. - Prescribing sildenafil for erectile dy sfunction trial. - The patient will contact gastroenterol gerson to schedule a colonoscopy. - Continue rheumatology management with methotrexate for rheumatoid arthritis. Patient was informed and verbally consented to the use of an ambient scribe for clinic note documentation during this visit. Discussion Notes I discussed with the patient the ongoing management of his essential hypertension, emphasizing the importance of regular monitoring and follow-up. I also discussed prescribing sildenafil as a trial for erectile dysfunction to assess its efficacy. The patient was advised to prioritize scheduling the colonoscopy, as it is an important screening procedure. We also reviewed his rheumatoid arthritis management plan with the ongoing methotrexate treatment managed by his implementation manager. I encouraged him to adhere to all prescribed medications and follow-up with the necessary specialists. Patient Instructions - Follow up with labs as ordered. - Begin sildenafil as prescribed and mon itor for efficacy. - Schedule a colonoscopy with gastroente rology at the earliest convenience. - Continue current medications for rheum atoid arthritis as directed by the implementation manager. 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 Pain and swelling of toe of right foot Bilateral wrist pain Surgical History No pertinent past surgical history Family History Sister Substance use disorder Rheumatoid arthritis Mother Substance use disorder Brother Substance use disorder Father Substance use disorder Sister Rheumatoid arthritis Social History Housing: Apartment Alcohol intake: former Patient Tobacco Use Status: Current everyday Tobacco user Cigarettes Per Day: 10 e-Cigarette/Vaping Use: Currently Using service: No Current occupational status: employed Current occupation: [employer] Current occupational exposures/hazards: Yes Cognitive needs: No Hearing needs: No Vision needs: No Questionnaire PHQ-9 Over the last 2 weeks, how often have you been bothered by any of the following problems? 1. Little interest or pleasure in doing things: several days 2. Feeling down, depressed, or hopeless: nearly every day 3. Trouble falling or staying asleep, or sleeping too much: several days 4. Feeling tired or having little energy: several days 5. Poor appetite or overeating: not at all 6. Feeling bad about yourself - or that you are a failure or have let yourself or your family down: more than half the days 7. Trouble concentrating on things, such as reading the newspaper or watching television: not at all 8. Moving or speaking so slowly that other people could have noticed. Or the opposite - being so fidgety or restless that you have been moving around a lot more than usual: not at all 9. Thoughts that you would be better off or of hurting yourself in some way: several days Total score: 9 Depression Screening Interpretation: Positive (denies any SI or HI) Depression Screening Follow-up: Existing condition and Declines treatment Depression Screening Done: Yes 67299 - PHQ-9 Billing: Yes Source: Developed by Drs. Alfredo Vasquez, Tahmina Mccrary, Larry Cruz and colleagues, with an educational ángel from [employer]. Thrive Questionnaire Date Thrive assessed: 05/01/24 I am a: Patient What is your living situation today?: I have a steady place to live Within the past 12 months, did the food you bought not last and you didn't have the money to get more?: I choose not to answer this question Within the past 12 months, did you worry whether your food would run out before you got money to buy more?: I choose not to answer this question Do you have trouble paying for medicines?: No Do you have trouble getting transportation to medical appointments?: No Do you have trouble paying your heating and electricity bill?: No Do you have trouble taking care of your child, family member or friend?: No Do you have trouble with day-to-day activities such as bathing, preparing meals, shopping, managing finances, etc.?: No Are you currently unemployed and looking for a job?: No Are you interested in more education?: No Please select the resources that you would like help with: None Currently or been in a relationship where the following occur: I choose not to answer THRIVE Score: 0 AUDIT C Alcohol Use Questionnaire (AUDIT-C) 1. How often do you have a drink containing alcohol?: Never 3. How often do you have six or more drinks on one occasion?: Never Total Score: 0 MARLYN-7 AMB Questionnaire MARLYN-7 Date MARLYN - 7 assessed: 05/01/24 Feeling nervous, anxious, or on edge: 3 = Nearly every day Not being able to stop or control worryin = Several days Worrying too much about different things: 1 = Several days Trouble relaxin = Several days Being so restless that it is hard to sit still: 1 = Several days Becoming easily annoyed or irritable: 1 = Several days Feeling afraid as if something awful might happen: 1 = Several days Total MARLYN-7 score (0-4 normal; 5-9 mild; 10-14 moderate; 15-21 severe): 9 Source: Developed by Drs. Alfredo Vasquez, Tahmina Mccrary, Larry Cruz and colleagues, with an educational ángel from [employer]. MARLYN-7 Assessment Billing MARLYN-7 Assessment Tool: MARLYN-7 Assessment 04643 Physical exam (Primary Care) Vital Signs: Last Vital Signs Pulse 90 05/01/24 14:07 BP 122/72 05/01/24 14:07 Pulse Ox 98 05/01/24 14:07 BMI result Body Mass Index 19.2 Tobacco/Smoking Status: Tobacco use Status Tobacco use date assessed 05/01/24 05/01/24 14:08 Patient Tobacco Use Status Current everyday Tobacco 05/01/24 14:08 e-Cigarette/Vaping Use Currently Using 05/01/24 14:08 PHQ-9: PHQ-9 Score PHQ-9: Total score 9 05/01/24 14:41 Depression Screening Interpretation: Positive (denies any SI or HI) Depression Screening Follow-up: Existing condition and Declines treatment Thrive Assessment: Date of Thrive Assessment Date Thrive assessed 05/01/24 05/01/24 14:08 Currently or been in a relationship where the following occur: I choose not to answer Coding Level of Care Code Est Pt Level 3 (94398) Diagnoses Primary hypertension I10 Hypertension type: primary hypertension Screening for prostate cancer Z12.5 Additional Codes MARLYN-7 Assessment Billing - MARLYN-7 Assessment Tool: MARLYN-7 Assessment 94488 ([id number]) PHQ-9 - 54966 - PHQ-9 Billing: Yes ([id number]) Assessment & Plan Assessment & Plan (1) Hypertension: Onset Date: ~05/01/24 Code(s): I10 - Essential (primary) hypertension Category: Medical Qualifiers: Hypertension type: primary hypertension Qualified Code(s): I10 - Essential (primary) hypertension (2) Screening for prostate cancer: Code(s): Z12.5 - Encounter for screening for malignant neoplasm of prostate Category: Medical Plan . Orders: Orders Complete Blood Count Auto Diff Today I10 - Essential (primary) hypertension Lipid Panel Today I10 - Essential (primary) hypertension TSH reflex Free T4 Today I10 - Essential (primary) hypertension UA CC w/rflx Micro + Cult Today I10 - Essential (primary) hypertension Prostate Specific Antigen Scr Today Z12.5 - Encounter for screening for malignant neoplasm of prostate Comprehensive [place]. Panel Fast Today I10 - Essential (primary) hypertension Medications: New sildenafil administer 30 minutes to 4 hours before activity 25 mg PO DAILY 30 days PRN 6 tabs 0RF sexual activity
== END 2024-05-01 15:35 | disposition home or self-care (01) ==
PROVIDERS: Visit Provider Nurse Practitioner Family
DX: I10 Essential (primary) hypertension (principal); Z12.5 Encounter for screening for malignant neoplasm of prostate

== ENCOUNTER → 2024-05-01 14:05 | Outpatient (BNVA) | payer OTHER, SELFPAY | PROVIDERS: Visit Provider Nurse Practitioner Family | DX: I10 Essential (primary) hypertension (principal); N52.9 Male erectile dysfunction, unspecified; M06.9 Rheumatoid arthritis, unspecified; Z79.631 Long term (current) use of antimetabolite agent | CPT/HCPCS: 96127 ==

== ENCOUNTER 2024-06-09 11:55 | Outpatient (REF) | payer OTHER, SELFPAY ==
--- OUTSIDE RECORDS SUMMARY | 2024-06-09 11:58 | XMS_ITS | Clinical Summary ---
Author Organization [facility] Address [address] [place] [address] Care Team Providers Care Director Of Fundraising Name Role Phone Unavailable Primary Care Provider Unavailabl e Social History Tobacco Use Types Packs/Day Years Used Date Smoking Tobacco: Never Assessed Sex and Gender Information Value Date Recorded Sex Assigned at Not on file Gender Identity Not on file Sexual Orientation Not on file Plan of Treatment Not on file
--- OUTSIDE RECORDS SUMMARY | 2024-06-09 11:58 | XMS_ITS ---
Author Organization [facility] [place] Address [address] [facility] [place] [address] Care Team Providers Care Machine Cage Maker Name Role Phone Lul Saba Primary Care Provider Unav ailable Alex Welch Unavailable [phone] REASON FOR VISIT Foot pain Medications Medication [...] Status Risk Notes Problem Acquired hallux valgus (45646464) Hallux valgus (acquired), left foot (M20.12) Active confirmed Problem Acquired hallux valgus (15224453) Hallux valgus (acquired), right foot (M20.11) Active confirmed Problem Rheumatic arthritis (7932285525) Rheumatoid arthritis involving both feet, unspecified whether rheumatoid factor present (M06.9) Active confirmed Vital Signs Height 5 ft 9 in in 03/23/2024 Weight 130 lbs 03/23/2024 BMI 19.2 kg/m2 03/23/2024 Blood pressure systolic 120 mm Hg 03/23/20 24 Blood pressure diastolic 80 mm Hg 024 Encounters Encounter Location Date Provider Diagnosis [facility] [place] [address] [place] [address] 03/23/2024 Alex Welch Pain in left foot [...] Notes * Bismark CARMONAOB:1975 (48 yo M)Acc No.[id number]:03/23/2024 Progress Notes Patient:?Zack CARMONA Provider:?Alex Welch DPM :1975???Age:48 Y???Sex:Male Eulalio e:03/23/2024 Address: [address] , [address] [place] Pcp:ALBINA Bowser Subjective: * Chief Complaints: * [...] no. ?Exercise: no. ?Marital status: single. ?Occupation: [employer]. * Medications:?TakingFolic Aci d Losartan Potassium [...] Foot, AP, LAT, MO, B/L??Taken by trained?Podiatric Crepe Maker (?E.F.).?Findings:?normal bone and soft tissue density consistent [...] ray : Foot, right 3V * Procedure Codes:?76985 X-RAY EXAM OF LEFT FOOT 3V, Modifiers: 26 , [id number] X-RAY EXAM OF RIGHT FOOT 3V, Modifiers: [...] time worn until they are using them multimedia programmer and in all activities. They were asked [...] Welch DPM Date:?2023 Generated for Irais cortez/Nolvia/Melitting on:?06/09/2024 11:57 AM EST History and Physical Notes * [...] LAT, MO, B/L Taken by trained Podiatric Crepe Maker ( E.F.) Clinical Indication(s): Evaluate Biomech anical Deformity
--- OUTSIDE RECORDS SUMMARY | 2024-06-09 11:58 | XMS_ITS ---
Author Organization [facility] Address [address] [place] [address] Care Team Providers Care Family Development Specialist Name Role Phone Lul Saba Primary Care Provider Unav ailable Alex Welch Unavailable [phone] REASON FOR VISIT BUY Comfort Plus w/MET Pad (REDI-T) E / m 10-10.5 Encounters Encounter Location Date Provider Diagnosis [facility] [address] [place] [address] 03/23/2024 Alex Welch Plan Of Treatment No Information Progress Notes * MATHEWCliftonNainOB:1975 (48 yo M)Acc No.[id number]:03/23/2024 Patient:?Zack CARMONA :1975???Age:48 Y???Sex:Male Address:[address] [place] [address], [address] [facility] [place] [address] * true * Date:? Generated for Printi ng/Faxing/eTransmitting on:?06/09/2024 11:58 AM EST
--- OUTSIDE RECORDS SUMMARY | 2024-06-09 11:58 | XMS_ITS | Patient Health Record ---
[facility] Address [address] [facility] [place] [address] Care Team Providers Care Spine Surgeon Name Role Phone Lul Saba Primary Care Provider Unav ailable Miguel Ángel Welchik Unavailable [phone] Reason For Referral No Information Medications Medication [...] Status Risk Notes Problem Acquired hallux valgus (42348990) Hallux valgus (acquired), left foot (M20.12) Active confirmed Problem Acquired hallux valgus (64310481) Hallux valgus (acquired), right foot (M20.11) Active confirmed Problem Rheumatic arthritis (5837112149) Rheumatoid arthritis involving both feet, unspecified whether rheumatoid factor present (M06.9) Active confirmed Vital Signs Blood pressure diastolic 80 mm Hg 03/23/2024 Height 5 ft 9 in in 03/23/2024 Blood pressure systolic 120 mm Hg 03/23/2024 Weight 130 lbs 03/23/2024 BMI 19.2 kg/m2 03/23/2024 Encounters Encounter Location Date Provider Diagnosis [address] [address] 03/23/2024 Alex Welch Pain in left foot [...] feet, unspecified whether rheumatoid factor present M06.[address] [address] 01/12/2024 Alex Welch [address] [address] 03/23/2024 Alex Welch Assessments Encounter Date Diagnosis [...] Insured Coverage Start Date Coverage End Date [facility] [address] [place] [address] [phone] [id number] Zack Izquierdo Self - patient is the insured Medical (General) History Medical History History ICD Code Anxiety Arthritis - Rheumatoid Depression High Blood Pressure Numbness Measles Chicken pox
[2024-06-09 13:40] LABS: Basophils Absolute Auto 0.1 X10*3/uL (0.0-0.2); Basophils Percent Auto 0.6 % (0-2); Eosinophils Absolute Auto 0.2 X10*3/uL (0.0-0.4); Eosinophils Percent Auto 2.3 % (0-4); Hematocrit 37.4 % (42.0-52.0); Hemoglobin 12.4 g/dl (14.0-18.0); Imm Gran Abs Auto 0.04 X10*3/uL (0.00-0.03); Imm Gran Pct Auto 0.4 % (0.0-0.4); Lymphocytes Absolute Auto 2.3 X10*3/uL (1.2-4.9); Lymphocytes Percent Auto 22.5 % (20-40); MANUAL DIFF FLAG NO; Mean Corpuscular HGB Conc 33.2 g/dl (31.0-36.0); Mean Corpuscular Hemoglobin 31.3 pg (27.0-33.0); Mean Corpuscular Volume 94.4 fL (80.0-98.0); Mean Platelet Volume 9.7 fL (9.4-12.4); Monocytes Absolute Auto 0.8 X10*3/uL (0.1-1.2); Monocytes Percent Auto 7.8 % (2-11); Neutrophils Absolute Auto 6.8 x10*3/uL (2.0-8.3); Neutrophils Percent Auto 66.4 % (45-73); Platelet Count 209 X10*3/uL (160-400); Red Blood Count 3.96 X10*6/uL (4.60-5.80); Red Cell Distribution Width 15.3 % (11.0-16.0); White Blood Count 10.2 X10*3/uL (4.8-10.8)
[2024-06-09 14:04] LABS: Alanine Aminotransferase 18 U/L (0-40); Albumin Level 3.8 g/dL (3.5-5.0); Alkaline Phosphatase 81 U/L (39-117); Anion Gap 11 (12-20); Aspartate Amino Transferase 29 U/L (5-37); Bilirubin Total 0.5 mg/dL (0.0-1.0); Blood Urea Nitrogen 9 mg/dL (9-16); Calcium 8.7 mg/dL (8.4-10.2); Carbon Dioxide 23 mmol/L (22-29); Chloride 109 mmol/L (96-108); Cholesterol 141 mg/dL (<200); Estimated Glomerular Filt Rate > 60; Glucose Fasting 94 mg/dL (60-99); HDL Cholesterol 47 mg/dL (>40); LDL Cholesterol Calculated 75 mg/dL (<100); Potassium 3.7 mmol/L (3.3-5.1); Sodium 139 mmol/L (135-145); Triglycerides 99 mg/dL (<150)
[2024-06-09 14:14] LABS: Prostate Specific Antigen Scr 0.34 ng/mL (<0.05-4.0)
[2024-06-09 14:19] LABS: TSH reflex Free T4 1.49 uIU/mL (0.32-4.0)
== END 2024-06-09 11:56 | disposition home or self-care (01) ==
LOC: HO.HMGCLDS 11:55
PROVIDERS: PCP Nurse Practitioner Family; Visit Provider Nurse Practitioner Family
DX: I10 Essential (primary) hypertension (principal); Z12.5 Encounter for screening for malignant neoplasm of prostate
CPT/HCPCS: 36415; 80053; 80061; 84153; 84443; 85025

== ENCOUNTER 2024-07-21 11:53 | Outpatient (REF) | payer OTHER, SELFPAY ==
[2024-07-21 13:32] LABS: MANUAL DIFF FLAG NO
[2024-07-21 13:35] LABS: Appearance Urine Clear; Basophils Absolute Auto 0.1 X10*3/uL (0.0-0.2); Basophils Percent Auto 0.6 % (0-2); Color Urine Yellow; Eosinophils Absolute Auto 0.3 X10*3/uL (0.0-0.4); Eosinophils Percent Auto 3.3 % (0-4); Glucose Urine UA Negative (Negative); Hematocrit 38.8 % (42.0-52.0); Hemoglobin 13.3 g/dl (14.0-18.0); Imm Gran Abs Auto 0.03 X10*3/uL (0.00-0.03); Imm Gran Pct Auto 0.3 % (0.0-0.4); Immature Retic Fraction 7.7 % (2.3-13.4); Leukocyte Esterase Urine Negative (Negative); Lymphocytes Absolute Auto 2.1 X10*3/uL (1.2-4.9); Lymphocytes Percent Auto 22.3 % (20-40); Mean Corpuscular HGB Conc 34.3 g/dl (31.0-36.0); Mean Corpuscular Hemoglobin 32.2 pg (27.0-33.0); Mean Corpuscular Volume 93.9 fL (80.0-98.0); Mean Platelet Volume 9.7 fL (9.4-12.4); Monocytes Absolute Auto 0.6 X10*3/uL (0.1-1.2); Monocytes Percent Auto 6.8 % (2-11); Neutrophils Absolute Auto 6.2 x10*3/uL (2.0-8.3); Neutrophils Percent Auto 66.7 % (45-73); Nitrite Urine Negative (Negative); PH 7.5 (5.0-9.0); Platelet Count 211 X10*3/uL (160-400); Red Blood Count 4.13 X10*6/uL (4.60-5.80); Red Cell Distribution Width 15.6 % (11.0-16.0); Retic HGB Equivalent 35.9 pg (30.0-35.0); Reticulocyte Percent 1.4 % (0.5-1.8); Reticulocytes Absolute 0.057 X10*6/uL (0.026-0.095); Specific Gravity - Urine 1.015 (1.005-1.025); Urine Blood Negative (Negative); Urine Ketones Negative (Negative); Urine Protein Negative (Neg-Trace); White Blood Count 9.3 X10*3/uL (4.8-10.8)
[2024-07-21 13:53] LABS: Alanine Aminotransferase 17 U/L (0-40); Albumin Level 3.9 g/dL (3.5-5.0); Alkaline Phosphatase 89 U/L (39-117); Anion Gap 12 (12-20); Aspartate Amino Transferase 25 U/L (5-37); Bilirubin Total 0.5 mg/dL (0.0-1.0); Blood Urea Nitrogen 6 mg/dL (9-16); Calcium 8.7 mg/dL (8.4-10.2); Carbon Dioxide 24 mmol/L (22-29); Chloride 108 mmol/L (96-108); Estimated Glomerular Filt Rate > 60; Glucose Random 94 mg/dL (60-115); Iron 61 mcg/dL (45-160); Lactate Dehydrogenase 246 U/L (118-273); Percent Iron Saturation 23 % (15-50); Potassium 3.6 mmol/L (3.3-5.1); Sodium 140 mmol/L (135-145); Total Iron Binding Capacity 266 mcg/dL (228-428); Total Protein 6.8 g/dL (6.5-8.0); Unsaturated Iron Binding 205 ug/dL
[2024-07-21 14:12] LABS: Ferritin 81 ng/mL (20-250)
[2024-07-21 14:25] LABS: Folate > 20.0 ng/mL (> or = 4.0); Vitamin B12 284 pg/mL (200-900)
== END 2024-07-21 11:54 | disposition home or self-care (01) ==
LOC: HO.HMGCLDS 11:53
PROVIDERS: PCP Nurse Practitioner Family; Visit Provider Nurse Practitioner Family
DX: D64.9 Anemia, unspecified (principal); I10 Essential (primary) hypertension
CPT/HCPCS: 36415; 80053; 81003; 82607; 82728; 82746; 83540; 83615; 84443; 85025; 85045

== ENCOUNTER 2024-08-10 10:14 | Outpatient (AMB) | payer OTHER, SELFPAY ==
--- NOTE | 2024-08-10 10:25 | MHC.OFFVIS ---
Vital Signs 08/10/24 10:28 Height 5 ft 9 in Weight 127 lb 3.307 oz BMI 18.8 BP 115/60 Blood Pressure Location Rt brachial Position Sitting Pulse 75 Pulse Source Pulse Oximeter Pulse Oximetry (%) 98 Oxygen Delivery Method Room Air Intake Visit Reasons: ra Intake Note: Patient presents for RA follow up. Allergies No Known Allergies [No Known Allergies*] Allergy (Verified 08/10/24 10:27) Medication List - Last Reconciled 08/10/24 by Parisa Hart MD acetaminophen ER (Tylenol Arthritis Pain) 1,300 mg PO Q12H albuterol sulfate 90 mcg/actuation 2 puffs inhalation Q6H PRN diclofenac sodium 1% (Arthritis Pain (diclofenac)) 2 grams topical QID folic acid 1 mg PO DAILY losartan 25 mg PO DAILY methotrexate sodium 25 mg (10 x 2.5 mg) PO QWEEK nicotine (polacrilex) 4 mg buccal Q8H PRN sildenafil 25 mg PO DAILY PRN 30 days HPI Comments Details: Patient is a 49-year-old male current everyday smoker with hypertension and seropositive rheumatoid arthritis here today for follow up Interval History: Patient last seen 04/19/[address] Jose. At that time was in a flare of his disease due to running out of methotrexate and not doing his safety blood work. He was given prednisone taper with improvement Today, Patient is currently compliant with his methotrexate Main complaint is left wrist pain Rheumatologic History: +++RF+++CCP 05/2023 MTX Initial history by Faby: Mr. Izquierdo 48yoM presents today for evaluation of Bilateral wrist pain and swelling with +RF and +CCP. The patient reports he has been having pain and swelling to the wrist for about 1 year. He has not been able to get medical attention consistently because he lacked insurance. He was treated with Prednsione for 5 days and celebrex daily and that has help with the pain and swelling. He also reports using Tylenol and Aleve to help with the pain and gets some relief from that. 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 He has a history of substance abuse for alcohol and illicit drugs. He says he has been off alcohol for 1 year now. He hopes to get help with the wrist because it very much affects his work. The patient denies pain and swelling other joints. He says his hands and wrists are his main concern The patient denied Raynaud's, dry eyes or dry mouth, skin rashes, uveitis. He says he has not had pericarditis or pleuritis he has no current concerns for short of breath or respiratory infections. 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 Pain and swelling of toe of right foot Bilateral wrist pain Surgical History No pertinent past surgical history Family History Sister Substance use disorder Rheumatoid arthritis Mother Substance use disorder Brother Substance use disorder Father Substance use disorder Sister Rheumatoid arthritis Social History Housing: Apartment Alcohol intake: former Patient Tobacco Use Status: Current everyday Tobacco user Cigarettes Per Day: 10 e-Cigarette/Vaping Use: Currently Using service: No Current occupational status: employed Current occupation: [email or web address] Current occupational exposures/hazards: Yes Cognitive needs: No Hearing needs: No Vision needs: No Review of Systems Const Details: Review of Systems Constitutional: Denies fever, chills, weight loss ENT: Denies vision changes, eye pain or eye redness, dental caries, dry mouth GI: Denies nausea, vomiting, diarrhea, abdominal pain, change in BM Pulm: Denies SOB, RAMÍREZ, hemoptysis, wheezing Cards: Denies chest pain, palpitations Skin: Denies Raynaud's, rash, nail changes, photosensitivity, RN PAIN MANAGEMENT: Denies headaches, weakness, paresthesias, recurrent falls MSK: as per HPI All other systems reviewed and are unremarkable except noted above Physical Exam Vital Signs: Last Vital Signs Pulse 75 08/10/24 10:28 BP 115/60 08/10/24 10:28 Pulse Ox 98 08/10/24 10:28 Oxygen Delivery Method Room Air 08/10/24 10:28 BMI result Body Mass Index 18.8 Vital signs reviewed Physical Examination CONSTITUITIONAL Patient alert and cooperative. Well appearing and in no apparent painful distress HEENT Conjunctiva and sclera clear. ?Pupils equal round and reactive to light. ?No lymphadenopathy. ? CHEST/RESPIRATORY SYSTEM Normal respiratory effort and able to speak in complete sentences. ?Clear to auscultation bilaterally. ?No crackles, rales, rhonchi, wheezes heard. CARDIAC SYSTEM Regular rate and rhythm. ?S1 and S2 heard no murmurs. ?Radial pulses intact bilaterally MSK Hands: ?Able to make a fist. No synovitis noted to the MCPs, PIPs or DIPs. ?No tenderness to palpation of these joints. Synovial hypertrophy to the 2nd and 3rd MCPs bilaterally. 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 Wrists: ?Decreased range of motion bilaterally with fullness to the left wrist. No tenderness to palpation of the wrist joint or the base of the 1st CMC. But there is some swelling overlying the ?Radiocarpal joint with tenderness to palpation. Elbows: Full range of motion without pain. No tenderness, weakness, swelling, increased warmth or erythema. Rheumatoid nodules noted on the extensor surfaces Shoulders: Full range of active range of motion without pain. No tenderness, weakness, swelling, increased warmth or erythema. Knees: ?Full range of motion. ?No tenderness, swelling, increased warmth or erythema.? Crepitations felt bilaterally Ankles: Full range of motion. ?No tenderness, swelling, increased warmth or erythema.? Feet: ?Negative squeeze test. ?No tenderness to palpation or swelling of the MTPs. Tender points:?No tenderness to palpation of the bilateral trapezius, supraspinatus, greater trochanters, anterior costochondral junctions, bilateral gluteal areas, bilateral suboccipital muscle insertions SKIN Skin intact without rashes. Results Reviewed Results Reviewed: Laboratory Tests 04/07/24 07/21/24 11:58 12:00 WBC 9.3 RBC 4.13 L Hgb 13.3 L Hct 38.8 L Plt Count 211 ESR 30 H Sodium 140 Potassium 3.6 Chloride 108 Carbon Dioxide 24 BUN 6 L Creatinine 0.72 Total Bilirubin 0.5 AST 25 ALT 17 Alkaline Phosphatase 89 C-Reactive Protein 2.06 H Immunology labs 04/05/23 07/25/23 15:15 06:16 Rheumatoid Factor 827.6 H Cycl Citrul Peptide IgG >250 H CARLI Screen NEGATIVE Infectious serologies 04/07/24 11:58 Hepatitis A IgM Ab Nonreactive Hep Bs Antigen Negative Hep Bs Antibody NONREACTIVE Hep B Core Total Ab Nonreactive Hepatitis C Ab (EIA) Nonreactive Assessment & Plan Assessment & Plan (1) Seropositive rheumatoid arthritis of both wrists: Comment: +++RF+++CCP 05/2023 MTX Code(s): M05.731 - Rheumatoid arthritis with rheumatoid factor of right wrist without organ or systems involvement; M05.732 - Rheumatoid arthritis with rheumatoid factor of left wrist without organ or systems involvement Category: Medical Plan: #Seropositive RA Patient is a 49-year-old male with seropositive rheumatoid arthritis here today for follow up. Patient has low disease activity but still has bothersome wrists pain. There is some swelling and hypertrophy noted to the wrist but it seems to be more radiocarpal than the wrist joint proper. We will check x-rays of bilateral wrists and hands. Plan to send him to get an ultrasound injection. 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 Limit alcohol and avoid Bactrim ? Monitoring: ?CBC, BMP, LFTs every 3-4 months and hepatitis serologies as needed Plan I spent 30 minutes reviewing the record and labs, taking a history, examining the patient, discussing the treatment plan, ordering diagnostic work up and documenting in the medical record Orders: Orders XR wrist LT min 3V Today M05.731 - Rheumatoid arthritis with rheumatoid factor of right wrist without organ or systems involvement, M05.732 - Rheumatoid arthritis with rheumatoid factor of left wrist without organ or systems involvement XR wrist RT min 3V Today M05.731 - Rheumatoid arthritis with rheumatoid factor of right wrist without organ or systems involvement, M05.732 - Rheumatoid arthritis with rheumatoid factor of left wrist without organ or systems involvement XR hand LT min 3V Today M05.731 - Rheumatoid arthritis with rheumatoid factor of right wrist without organ or systems involvement, M05.732 - Rheumatoid arthritis with rheumatoid factor of left wrist without organ or systems involvement XR hand RT min 3V Today M05.731 - Rheumatoid arthritis with rheumatoid factor of right wrist without organ or systems involvement, M05.732 - Rheumatoid arthritis with rheumatoid factor of left wrist without organ or systems involvement Erythrocyte Sedimentation Rate Today M05.731 - Rheumatoid arthritis with rheumatoid factor of right wrist without organ or systems involvement, M05.732 - Rheumatoid arthritis with rheumatoid factor of left wrist without organ or systems involvement Comprehensive Met. Panel 4 Months M05.731 - Rheumatoid arthritis with rheumatoid factor of right wrist without organ or systems involvement, M05.732 - Rheumatoid arthritis with rheumatoid factor of left wrist without organ or systems involvement Erythrocyte Sedimentation Rate 4 Months M05.731 - Rheumatoid arthritis with rheumatoid factor of right wrist without organ or systems involvement, M05.732 - Rheumatoid arthritis with rheumatoid factor of left wrist without organ or systems involvement Hepatitis A,B,C Profile 4 Months M05.731 - Rheumatoid arthritis with rheumatoid factor of right wrist without organ or systems involvement, M05.732 - Rheumatoid arthritis with rheumatoid factor of left wrist without organ or systems involvement C Reactive Protein Today M05.731 - Rheumatoid arthritis with rheumatoid factor of right wrist without organ or systems involvement, M05.732 - Rheumatoid arthritis with rheumatoid factor of left wrist without organ or systems involvement Complete Blood Count Auto Diff 4 Months M05.731 - Rheumatoid arthritis with rheumatoid factor of right wrist without organ or systems involvement, M05.732 - Rheumatoid arthritis with rheumatoid factor of left wrist without organ or systems involvement C Reactive Protein 4 Months M05.731 - Rheumatoid arthritis with rheumatoid factor of right wrist without organ or systems involvement, M05.732 - Rheumatoid arthritis with rheumatoid factor of left wrist without organ or systems involvement T Spot TB 4 Months M05.731 - Rheumatoid arthritis with rheumatoid factor of right wrist without organ or systems involvement, M05.732 - Rheumatoid arthritis with rheumatoid factor of left wrist without organ or systems involvement Medications: Changed From methotrexate sodium Take 5 tabs twice, 12-24 hours apart 25 mg (10 x 2.5 mg) PO QWEEK 120 tabs 1RF M06.9 - Rheumatoid arthritis, unspecified, M79.674 - Pain in right toe(s), M79.89 - Other specified soft tissue disorders To methotrexate sodium Take 5 tabs twice, 12-24 hours apart 25 mg (10 x 2.5 mg) PO QWEEK 90 days 130 tabs 1RF M06.9 - Rheumatoid arthritis, unspecified, M79.674 - Pain in right toe(s), M79.89 - Other specified soft tissue disorders Refilled folic acid 1 mg PO DAILY 90 tabs 1RF Z79.631 - custodial (current) use of antimetabolite agent Coding Level of Care Code Est Pt Level 4 (37864) Complex EM visit Add On G2211 Diagnoses Seropositive rheumatoid arthritis of both wrists M05.731; M05.732 custodial methotrexate user Z79.631
[2024-08-10 10:28] VITALS: BP 115/60; PULSE 75; O2SAT 98; BMI 18.8
--- OUTSIDE RECORDS SUMMARY | 2024-08-10 11:15 | XMS_ITS ---
Author Organization [facility] [place] Address [address] [facility] [place] [address] Care Team Providers Care Data Warehousing Manager Name Role Phone Lul Saba Primary Care Provider Unav ailable Alex Welch Unavailable [phone] REASON FOR VISIT Foot pain Medications Medication [...] Status Risk Notes Problem Acquired hallux valgus (17059308) Hallux valgus (acquired), left foot (M20.12) Active confirmed Problem Acquired hallux valgus (50060841) Hallux valgus (acquired), right foot (M20.11) Active confirmed Problem Rheumatic arthritis (5075952332) Rheumatoid arthritis involving both feet, unspecified whether rheumatoid factor present (M06.9) Active confirmed Vital Signs Height 5 ft 9 in in 03/23/2024 Weight 130 lbs 03/23/2024 BMI 19.2 kg/m2 03/23/2024 Blood pressure systolic 120 mm Hg 03/23/20 24 Blood pressure diastolic 80 mm Hg 024 Encounters Encounter Location Date Provider Diagnosis [facility] [place] [address] [place] [address] 03/23/2024 Alex Welch Pain in left foot [...] Notes * Bismark CARMONAOB:1975 (48 yo M)Acc No.[id number]:03/23/2024 Progress Notes Patient:?Zack CARMONA Provider:?Alex Welch DPM :1975???Age:48 Y???Sex:Male Eulalio e:03/23/2024 Address: [address] Pcp:ALBINA Bowser Subjective: * Chief Complaints: * [...] no. ?Exercise: no. ?Marital status: single. ?Occupation: [employer]. * Medications:?TakingFolic Aci d Losartan Potassium [...] Foot, AP, LAT, MO, B/L??Taken by trained?Podiatric Cash Room Clerk (?E.F.).?Findings:?normal bone and soft tissue density consistent [...] ray : Foot, right 3V * Procedure Codes:?32173 X-RAY EXAM OF LEFT FOOT 3V, Modifiers: 26 , [id number] X-RAY EXAM OF RIGHT FOOT 3V, Modifiers: [...] time worn until they are using them car loader and in all activities. They were asked [...] Welch DPM Date:?2023 Generated for Irais cortez/Nolvia/Melitting on:?08/10/2024 11:14 AM EDT History and Physical Notes * HPI (History [...] LAT, MO, B/L Taken by trained Podiatric Cash Room Clerk ( E.F.) Clinical Indication(s): Evaluate Biomech anical Deformity
--- OUTSIDE RECORDS SUMMARY | 2024-08-10 11:15 | XMS_ITS | Patient Health Record ---
[facility] Address [address] [facility] [place] [address] Care Team Providers Care Hardware Engineering Manager Name Role Phone Lul Saba Primary Care Provider Unav ailable Alex Welch Unavailable [phone] Reason For Referral No Information Medications Medication [...] Status Risk Notes Problem Acquired hallux valgus (04347368) Hallux valgus (acquired), left foot (M20.12) Active confirmed Problem Acquired hallux valgus (68594967) Hallux valgus (acquired), right foot (M20.11) Active confirmed Problem Rheumatic arthritis (8608280372) Rheumatoid arthritis involving both feet, unspecified whether rheumatoid factor present (M06.9) Active confirmed Vital Signs Blood pressure diastolic 80 mm Hg 03/23/2024 Height 5 ft 9 in in 03/23/2024 Blood pressure systolic 120 mm Hg 03/23/2024 Weight 130 lbs 03/23/2024 BMI 19.2 kg/m2 03/23/2024 Encounters Encounter Location Date Provider Diagnosis [address] [address] 03/23/2024 Alex Welch Pain in left foot [...] feet, unspecified whether rheumatoid factor present M06.[address] [address] 01/12/2024 Alex Welch [address] [address] 03/23/2024 Alex Welch Assessments Encounter Date Diagnosis [...] Insured Coverage Start Date Coverage End Date [facility] [address] [place] [address] [phone] [id number] Zack Izquierdo Self - patient is the insured Medical (General) History Medical History History ICD Code Anxiety Arthritis - Rheumatoid Depression High Blood Pressure Numbness Measles Chicken pox
--- OUTSIDE RECORDS SUMMARY | 2024-08-10 11:15 | XMS_ITS ---
[facility] Address [address] [place] [address] Care Team Providers Care Laborer/Grade Check Name Role Phone Lul Saba Primary Care Provider Unav ailable Alex Welch Unavailable [phone] REASON FOR VISIT BUY Comfort Plus w/MET Pad (REDI-T) E / m 10-10.5 Encounters Encounter Location Date Provider Diagnosis [facility] [address] [place] [address] 03/23/2024 Alex Welch Plan Of Treatment No Information Progress Notes * MATHEWCliftonNainOB:1975 (48 yo M)Acc No.[id number]:03/23/2024 Patient:?Zack CARMONA :1975???Age:48 Y???Sex:Male Address:[address] [place] [address], [address] [facility] [place] [address] * true * Date:? Generated for Printi ng/Faxing/eTransmitting on:?08/10/2024 11:14 AM EDT
--- OUTSIDE RECORDS SUMMARY | 2024-08-10 11:15 | XMS_ITS | Clinical Summary ---
Author Organization [facility] Address [address] [place] [address] Care Team Providers Care Oil Pump Station Operator Chief Name Role Phone Unavailable Primary Care Provider Unavailabl e Social History Tobacco Use Types Packs/Day Years Used Date Smoking Tobacco: Never Assessed Sex and Gender Information Value Date Recorded Sex Assigned at Not on file Gender Identity Not on file Sexual Orientation Not on file Plan of Treatment Not on file
--- OUTSIDE RECORDS SUMMARY | 2024-08-10 11:15 | XMS_ITS ---
Author Organization [facility] Address [address] [place] [address] Care Team Providers Care Industrial Hygenist Name Role Phone Lul Saba Primary Care Provider Unav ailable Alex Welch Unavailable [phone] REASON FOR VISIT GAS PUMPING STATION HELPER PPWK Entered Encounters Encounter Location Date Provider Diagnosis [facility] [address] [place] [address] 01/12/2024 Alex Welch Plan Of Treatment No Information Progress Notes * MATHEW CliftonNainOB:1975 (48 yo M)Acc No.[id number]:01/12/2024 Patient:?aZck Izquierdo :1975???Age:48 Y???Sex:Male Address:[address] [place] [address], [address] [facility] [place] [address] * true * Date:? Generated for Printi ng/Faxing/eTransmitting on:?08/10/2024 11:14 AM EDT
== END 2024-08-10 10:59 | disposition home or self-care (01) ==
LOC: HO.RHE 10:15
PROVIDERS: PCP Nurse Practitioner Family; Visit Provider Student in an Organized Health Care Education/Training Program
DX: M05.731 Rheumatoid arthritis with rheumatoid factor of right wrist without organ or systems involvement (principal); M05.732 Rheumatoid arthritis with rheumatoid factor of left wrist without organ or systems involvement; Z79.631 Long term (current) use of antimetabolite agent
CPT/HCPCS: 99214

== ENCOUNTER → 2024-08-10 10:14 | Outpatient (BNVA) | payer OTHER, SELFPAY | PROVIDERS: PCP Nurse Practitioner Family; Visit Provider Student in an Organized Health Care Education/Training Program ==

== ENCOUNTER 2024-08-25 12:02 | Outpatient (REF) | payer OTHER, SELFPAY ==
--- NOTE | ~2024-08-25 | XR_ITS ---
EXAMINATION: XR HAND 3 OR MORE VIEWS LEFT HISTORY: M05.731 - Rheumatoid arthritis with rheumatoid factor of right wrist wit... COMPARISON: There are no prior studies available for comparison. FINDINGS: Three views of the left hand are submitted. Osseous mineralization is normal. There is no fracture or dislocation. There is severe arthritis involving the radiocarpal articulation with joint space narrowing and subchondral cyst formation. There is also narrowing of the joint space between the scaphoid and trapezium. There is flexion deformity of the 5th finger at the PIP joint. There is soft tissue swelling over the ulnar styloid. XR/XR hand LT min 3V IMPRESSION: Soft tissue swelling over the ulnar styloid with the severe radiocarpal arthritis. Electronically signed by: Alfredo Juárez MD 08/27/2024 08:13 AM EDT
--- NOTE | ~2024-08-25 | XR_ITS ---
EXAMINATION: XR HAND 3 OR MORE VIEWS RIGHT HISTORY: M05.731 - Rheumatoid arthritis with rheumatoid factor of right wrist with... COMPARISON: Comparison is made with the prior examination dated 04/05/2023. FINDINGS: Three views of the right hand are submitted. Osseous mineralization is normal. There is no fracture or dislocation. Again seen is an erosion involving the ulnar aspect of the distal radius with mild narrowing of the radial scaphoid joint. Again seen is severe narrowing of the joint space between the scaphoid and the trapezium. The joint spaces of the hand are maintained. There is soft tissue swelling over the ulnar styloid. XR/XR hand RT min 3V IMPRESSION: Soft tissue swelling over the ulnar styloid. Inflammatory arthropathy of the carpus with a similar appearance to the prior study. Electronically signed by: Alfredo Juárez MD 08/27/2024 08:15 AM EDT
--- OUTSIDE RECORDS SUMMARY | 2024-08-25 12:04 | XMS_ITS | Patient Health Record ---
Author Organization [facility] Address [address] [facility] [place] [address] Care Team Providers Care Certified Flex Endoscope Reprocessor Name Role Phone Lul Saba Primary Care Provider Unav ailable Alex Welch Unavailable [phone] Reason For Referral No Information Medications Medication [...] Status Risk Notes Problem Acquired hallux valgus (76517889) Hallux valgus (acquired), left foot (M20.12) Active confirmed Problem Acquired hallux valgus (78595829) Hallux valgus (acquired), right foot (M20.11) Active confirmed Problem Rheumatic arthritis (8897921377) Rheumatoid arthritis involving both feet, unspecified whether rheumatoid factor present (M06.9) Active confirmed Vital Signs Blood pressure diastolic 80 mm Hg 03/23/2024 Height 5 ft 9 in in 03/23/2024 Blood pressure systolic 120 mm Hg 03/23/2024 Weight 130 lbs 03/23/2024 BMI 19.2 kg/m2 03/23/2024 Encounters Encounter Location Date Provider Diagnosis [address] [address] 03/23/2024 Alex Welch Pain in left foot [...] feet, unspecified whether rheumatoid factor present M06.[address] [address] 01/12/2024 Alex Welch [address] [address] 03/23/2024 Alex Welch Assessments Encounter Date Diagnosis [...] Insured Coverage Start Date Coverage End Date [facility] [address] [place] [address] [phone] [id number] Zack Izquierdo Self - patient is the insured Medical (General) History Medical History History ICD Code Anxiety Arthritis - Rheumatoid Depression High Blood Pressure Numbness Measles Chicken pox
--- OUTSIDE RECORDS SUMMARY | 2024-08-25 12:04 | XMS_ITS | Clinical Summary ---
Author Organization [facility] Address [address] [place] [address] Care Team Providers Care Asp Developer Name Role Phone Unavailable Primary Care Provider Unavailabl e Social History Tobacco Use Types Packs/Day Years Used Date Smoking Tobacco: Never Assessed Sex and Gender Information Value Date Recorded Sex Assigned at Not on file Gender Identity Not on file Sexual Orientation Not on file Plan of Treatment Not on file
--- OUTSIDE RECORDS SUMMARY | 2024-08-25 12:04 | XMS_ITS ---
Author Organization [facility] Address [address] [place] [address] Care Team Providers Care Supervisor Print Line Name Role Phone Lul Saba Primary Care Provider Unav ailable Alex Welch Unavailable [phone] REASON FOR VISIT BUY Comfort Plus w/MET Pad (REDI-T) E / m 10-10.5 Encounters Encounter Location Date Provider Diagnosis [facility] [address] [place] [address] 03/23/2024 Alex Welch Plan Of Treatment No Information Progress Notes * MATHEWCliftonNainOB:1975 (48 yo M)Acc No.[id number]:03/23/2024 Patient:?Zack CARMONA :1975???Age:48 Y???Sex:Male Address:[address] [place] [address], [address] [place], [place] [address] * true * Date:? Generated for Printi ng/Faxing/eTransmitting on:?08/25/2024 12:04 PM EDT
--- OUTSIDE RECORDS SUMMARY | 2024-08-25 12:04 | XMS_ITS ---
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 Generated for Printi ng/Faxing/eTransmitting on:?08/25/2024 12:03 PM EDT
--- OUTSIDE RECORDS SUMMARY | 2024-08-25 12:04 | XMS_ITS ---
Author Organization [facility] Address [address] [facility] [place] [address] Care Team Providers Care Yardage Control Operator Name Role Phone Lul Saba Primary Care Provider Unav ailable Alex Welch Unavailable [phone] REASON FOR VISIT Foot pain Medications Medication [...] Status Risk Notes Problem Acquired hallux valgus ([id number]) Hallux valgus (acquired), left foot (M20.12) Active confirmed Problem Acquired hallux valgus (83874861) Hallux valgus (acquired), right foot (M20.11) Active confirmed Problem Rheumatic arthritis (4363544518) Rheumatoid arthritis involving both feet, unspecified whether rheumatoid factor present (M06.9) Active confirmed Vital Signs Height 5 ft 9 in in 03/23/2024 Weight 130 lbs 03/23/2024 BMI 19.2 kg/m2 03/23/2024 Blood pressure systolic 120 mm Hg 03/23/20 24 Blood pressure diastolic 80 mm Hg 024 Encounters Encounter Location Date Provider Diagnosis [facility] [address] [place] [address] 03/23/2024 Alex Welch Pain in left foot [...] Notes * Bismark CARMONAOB:1975 (48 yo M)Acc No.[id number]:03/23/2024 Progress Notes Patient:?Zack CARMONA Provider:?Alex Welch DPM :1975???Age:48 Y???Sex:Male Eulalio e:03/23/2024 Address: [address] , [address] [place] Pcp:ALBINA Bowser Subjective: * Chief Complaints: * [...] no. ?Exercise: no. ?Marital status: single. ?Occupation: Work in [employer]. * Medications:?TakingFolic Aci d Losartan Potassium [...] Foot, AP, LAT, MO, B/L??Taken by trained?Podiatric Regional Manager (?E.F.).?Findings:?normal bone and soft tissue density consistent [...] ray : Foot, right 3V * Procedure Codes:?43764 X-RAY EXAM OF LEFT FOOT 3V, Modifiers: 26 , [id number] X-RAY EXAM OF RIGHT FOOT 3V, Modifiers: [...] worn until they are using them multimedia services coordinator and in all activities. They were asked [...] Welch DPM Date:?2023 Generated for Irais cortez/Nolvia/Melitting on:?08/25/2024 12:03 PM EDT History and Physical Notes * HPI [...] LAT, MO, B/L Taken by trained Podiatric Regional Manager ( E.F.) Clinical Indication(s): Evaluate Biomech anical Deformity
[2024-08-25 13:37] LABS: MANUAL DIFF FLAG NO
[2024-08-25 13:40] LABS: Basophils Absolute Auto 0.1 X10*3/uL (0.0-0.2); Basophils Percent Auto 0.6 % (0-2); Eosinophils Absolute Auto 0.2 X10*3/uL (0.0-0.4); Eosinophils Percent Auto 2.8 % (0-4); Hematocrit 36.5 % (42.0-52.0); Hemoglobin 12.6 g/dl (14.0-18.0); Imm Gran Abs Auto 0.03 X10*3/uL (0.00-0.03); Imm Gran Pct Auto 0.3 % (0.0-0.4); Lymphocytes Absolute Auto 2.4 X10*3/uL (1.2-4.9); Lymphocytes Percent Auto 26.9 % (20-40); Mean Corpuscular HGB Conc 34.5 g/dl (31.0-36.0); Mean Corpuscular Hemoglobin 32.6 pg (27.0-33.0); Mean Corpuscular Volume 94.6 fL (80.0-98.0); Mean Platelet Volume 9.7 fL (9.4-12.4); Monocytes Absolute Auto 0.8 X10*3/uL (0.1-1.2); Monocytes Percent Auto 9.5 % (2-11); Neutrophils Absolute Auto 5.2 x10*3/uL (2.0-8.3); Neutrophils Percent Auto 59.9 % (45-73); Platelet Count 214 X10*3/uL (160-400); Red Blood Count 3.86 X10*6/uL (4.60-5.80); Red Cell Distribution Width 14.1 % (11.0-16.0); White Blood Count 8.7 X10*3/uL (4.8-10.8)
[2024-08-25 13:47] LABS: C Reactive Protein 0.17 mg/dL (< or = 0.50)
[2024-08-25 14:31] LABS: Erythrocyte Sedimentation Rate 14 MM/HR (0-15)
== END 2024-08-25 12:03 | disposition home or self-care (01) ==
LOC: HO.HMGCX 12:02
PROVIDERS: PCP Nurse Practitioner Family; Referring Provider Student in an Organized Health Care Education/Training Program; Visit Provider Nurse Practitioner Family
DX: D64.9 Anemia, unspecified (principal); M05.731 Rheumatoid arthritis with rheumatoid factor of right wrist without organ or systems involvement; M05.732 Rheumatoid arthritis with rheumatoid factor of left wrist without organ or systems involvement
CPT/HCPCS: 36415; 73130; 85025; 85652; 86140

== ENCOUNTER → 2024-08-25 12:06 | Outpatient (BNV) | payer OTHER, SELFPAY | PROVIDERS: PCP Nurse Practitioner Family; Referring Provider Student in an Organized Health Care Education/Training Program; Visit Provider Radiology Diagnostic Radiology | DX: M19.032 Primary osteoarthritis, left wrist (principal); R22.32 Localized swelling, mass and lump, left upper limb; M19.031 Primary osteoarthritis, right wrist; R22.31 Localized swelling, mass and lump, right upper limb | CPT/HCPCS: 73130 ==

== ENCOUNTER 2024-12-15 13:04 | Outpatient (REF) | payer OTHER, SELFPAY ==
--- OUTSIDE RECORDS SUMMARY | 2024-12-15 13:07 | XMS_ITS | Clinical Summary ---
Author Organization [facility] Address [address] [place] [address] Care Team Providers Care Recruiter Specialist Name Role Phone Unavailable Primary Care Provider Unavailabl e Social History Tobacco Use Types Packs/Day Years Used Date Smoking Tobacco: Never Assessed Sex and Gender Information Value Date Recorded Sex Assigned at Not on file Gender Identity Not on file Sexual Orientation Not on file Plan of Treatment Not on file
--- OUTSIDE RECORDS SUMMARY | 2024-12-15 13:07 | XMS_ITS | Patient Health Record ---
Author Organization [facility] Address [address] [facility] [place] [address] Care Team Providers Care Collator Name Role Phone Lul Saba Primary Care Provider Unav ailable Miguel Ángel Welchik Unavailable [phone] Reason For Referral No Information Medications Medication [...] Status Risk Notes Problem Acquired hallux valgus (63173275) Hallux valgus (acquired), left foot (M20.12) Active confirmed Problem Acquired hallux valgus (67828838) Hallux valgus (acquired), right foot (M20.11) Active confirmed Problem Rheumatoid arthritis (71867128) Rheumatoid arthritis involving both feet, unspecified whether rheumatoid factor present (M06.9) Active confirmed Vital Signs Blood pressure diastolic 80 mm Hg 03/23/2024 Height 5 ft 9 in in 03/23/2024 Blood pressure systolic 120 mm Hg 03/23/2024 Weight 130 lbs 03/23/2024 BMI 19.2 kg/m2 03/23/2024 Encounters Encounter Location Date Provider Diagnosis [address] [address] 03/23/2024 Alex Welch Pain in left foot [...] unspecified whether rheumatoid factor present M06.[address] [address] 01/12/2024 Alex Welch [address] [address] 03/23/2024 Alex Welch Assessments Encounter Date Diagnosis [...] Insured Coverage Start Date Coverage End Date [facility] [address] [place] [address] [phone] [id number] Zack Izquierdo Self - patient is the insured Medical (General) History Medical History History ICD Code Anxiety Arthritis - Rheumatoid Depression High Blood Pressure Numbness Measles Chicken pox
[2024-12-15 15:28] LABS: MANUAL DIFF FLAG NO
[2024-12-15 15:49] LABS: Hematocrit 37.3 % (42.0-52.0); Hemoglobin 13.0 g/dl (14.0-18.0); Imm Gran Abs Auto 0.03 X10*3/uL (0.00-0.03); Imm Gran Pct Auto 0.3 % (0.0-0.4); Lymphocytes Absolute Auto 2.0 X10*3/uL (1.2-4.9); Mean Corpuscular HGB Conc 34.9 g/dl (31.0-36.0); Mean Corpuscular Hemoglobin 32.2 pg (27.0-33.0); Mean Corpuscular Volume 92.3 fL (80.0-98.0); NRBC Abs Auto 0.000 X10*3/uL (0.0-0.012); NRBC Pct Auto 0.0 /100WBC (0.0-0.2); Platelet Count 253 X10*3/uL (160-400); Red Blood Count 4.04 X10*6/uL (4.60-5.80); White Blood Count 10.4 X10*3/uL (4.8-10.8)
[2024-12-15 16:00] LABS: Alanine Aminotransferase 16 U/L (0-40); Albumin Level 3.9 g/dL (3.5-5.0); Alkaline Phosphatase 101 U/L (39-117); Anion Gap 13 (12-20); Aspartate Amino Transferase 29 U/L (5-37); Blood Urea Nitrogen 13 mg/dL (9-16); Calcium 8.7 mg/dL (8.4-10.2); Carbon Dioxide 21 mmol/L (22-29); Chloride 105 mmol/L (96-108); Estimated Glomerular Filt Rate > 60; Potassium 4.0 mmol/L (3.3-5.1); Sodium 135 mmol/L (135-145); Total Protein 7.0 g/dL (6.5-8.0)
[2024-12-17 04:09] LABS: HBS Num1 0.00 mIU/mL (0-7.99); HBc Num1 0.04 S/CO (0.00-0.79); HBsAGNum1 0.35 S/CO (0.00-0.99); Hepatitis A Antibody IgM 0.18 Index (0-0.79); Hepatitis B Surface Antigen Negative (Negative); ~HepC Num1 0.17 S/CO (0.00-0.79); ~Hepatitis A Antibody IgM Nonreactive (Nonreactive); ~Hepatitis B Surface Antibody NONREACTIVE (Nonreactive); ~Hepatitis C Antibody Nonreactive (Nonreactive)
== END 2024-12-15 13:05 | disposition home or self-care (01) ==
LOC: HO.HMGCLDS 13:04
PROVIDERS: PCP Nurse Practitioner Family; Visit Provider Student in an Organized Health Care Education/Training Program
DX: M05.731 Rheumatoid arthritis with rheumatoid factor of right wrist without organ or systems involvement (principal); M05.732 Rheumatoid arthritis with rheumatoid factor of left wrist without organ or systems involvement
CPT/HCPCS: 36415; 80053; 85025; 85652; 86140; 86704; 86706; 86709; 86803; 87340

== ENCOUNTER 2025-02-12 13:23 | Outpatient (AMB) | payer OTHER, SELFPAY ==
--- NOTE | 2025-02-12 13:28 | A.OFFVIS_ITS ---
Vital Signs 02/12/25 13:39 Height 5 ft 9 in Weight 127 lb 13.89 oz BMI 18.9 BP 140/78 H Blood Pressure Location Lt brachial Position Sitting Pulse 96 Pulse Source Pulse Oximeter Pulse Oximetry (%) 98 Oxygen Delivery Method Room Air Intake Visit Reasons: RA Intake Note: Patient presents for RA follow up. Allergies No Known Allergies (No Known Allergies*) Allergy (Verified 02/12/25 13:37) HPI Comments Details: Patient is a 49-year-old male current everyday smoker with hypertension and seropositive rheumatoid arthritis here today for follow up Interval History: Patient last seen 08/10/2024 with me - On Methotrexate 25mg PO every week and Folic acid 1mg daily - Patient is currently compliant with his methotrexate - Main complaint is left wrist pain Today - On Methotrexate 25mg PO every week and Folic acid 1mg daily - Bilateral hand and wrist pain and swelling with prolonged AM stiffness Rheumatologic History: +++RF+++CCP 05/2023 MTX Initial history by Faby: Mr. Izquierdo 48yoM presents today for evaluation of Bilateral wrist pain and swelling with +RF and +CCP. The patient reports he has been having pain and swelling to the wrist for about 1 year. He has not been able to get medical attention consistently because he lacked insurance. He was treated with Prednsione for 5 days and celebrex daily and that has help with the pain and swelling. He also reports using Tylenol and Aleve to help with the pain and gets some relief from that. 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 He has a history of substance abuse for alcohol and illicit drugs. He says he has been off alcohol for 1 year now. He hopes to get help with the wrist because it very much affects his work. The patient denies pain and swelling other joints. He says his hands and wrists are his main concern The patient denied Raynaud's, dry eyes or dry mouth, skin rashes, uveitis. He says he has not had pericarditis or pleuritis he has no current concerns for short of breath or respiratory infections. Current Rheumatology Medication(s): Methotrexate 25mg weekly PO Folic acid 1 mg daily [facility] Medical History Elevated uric acid in blood Seropositive rheumatoid arthritis of both wrists custodial methotrexate user Pain and swelling of toe of right foot Bilateral wrist pain Surgical History No pertinent past surgical history Family History Sister Substance use disorder Rheumatoid arthritis Mother Substance use disorder Brother Substance use disorder Father Substance use disorder Sister Rheumatoid arthritis Social History Housing: Apartment Alcohol intake: former Patient Tobacco Use Status: Current everyday Tobacco user Cigarettes Per Day: 10 e-Cigarette/Vaping Use: Currently Using service: No Current occupational status: employed Current occupation: [employer] Current occupational exposures/hazards: Yes Cognitive needs: No Hearing needs: No Vision needs: No Review of Systems Narrative Review of Systems Constitutional: Denies fever, chills, weight loss ENT: Denies vision changes, eye pain or eye redness, dental caries, dry mouth GI: Denies nausea, vomiting, diarrhea, abdominal pain, change in BM Pulm: Denies SOB, RAMÍREZ, hemoptysis, wheezing Cards: Denies chest pain, palpitations Skin: Denies Raynaud's, rash, nail changes, photosensitivity, TUNNEL HEADING SUPERVISOR: Denies headaches, weakness, paresthesias, recurrent falls MSK: as per HPI All other systems reviewed and are unremarkable except noted above Physical Exam Exam Exam: Vital signs reviewed Physical Examination CONSTITUITIONAL Patient alert and cooperative. Well appearing and in no apparent painful distress MSK Hands * Right Hand: Able to make a fist. No swelling but TTP of the MCPs * Left Hand: Able to make a fist. No swelling. TTP of the MCPs. Boutonniere deformity to the 5th PIP * Bilateral squaring of the 1st CMC with overlying swelling and tenderness to palpation. Positive CMC grind test Wrists * Right Wrist: Decreased range of motion to flexion and extension. Synovial thickening and tenderness to palpation * Left Wrist: Decreased range of motion to flexion and extension. Synovial thickening and tenderness to palpation Elbows * Right Elbow: Full ROM. No swelling or TTP. No TTP of the medial epicondyle. No TTP of the lateral epicondyle * Left Elbow: Full ROM. No swelling or TTP. No TTP of the medial epicondyle. No TTP of the lateral epicondyle Shoulders * Right shoulder: No swelling noted. No TTP of the AC joint. No TTP of the subacromial bursa. No TTP of the posterior shoulder * Left shoulder: No swelling noted. No TTP of the AC joint. No TTP of the subacromial bursa. No TTP of the posterior shoulder Knees * Right knee: Full ROM. No swelling noted. No TTP of the knee joint line. No TTP of pes anserine bursa * Left knee: Full ROM. No swelling noted. No TTP of the knee joint line. No TTP of pes anserine bursa. * Crepitations felt bilaterally Ankles * Right ankle: Good ankle dorsiflexion and plantar flexion. No swelling. No TTP of the ankle joint * Left ankle: Good ankle dorsiflexion and plantar flexion. No swelling. No TTP of the ankle joint Feet * Right foot: Negative squeeze test * Left foot: Negative squeeze test Tender points? * No tenderness to palpation of the bilateral trapezius, supraspinatus, anterior costochondral junctions, bilateral suboccipital muscle insertions SKIN No rashes Vital Signs: Last Vital Signs Pulse 96 02/12/25 13:39 BP 140/78 H 02/12/25 13:39 Pulse Ox 98 02/12/25 13:39 Oxygen Delivery Method Room Air 02/12/25 13:39 BMI result Body Mass Index 18.9 Results Reviewed Results Reviewed: Laboratory Tests 08/25/24 12/15/24 12:08 13:17 WBC 10.4 RBC 4.04 L Hgb 13.0 L Hct 37.3 L Plt Count 253 ESR 14 37 H Sodium 135 Potassium 4.0 Chloride 105 Carbon Dioxide 21 L BUN 13 Creatinine 0.71 AST 29 ALT 16 C-Reactive Protein 0.17 0.67 H Laboratory Tests 12/15/24 13:17 Hepatitis A IgM Ab Nonreactive Hep Bs Antigen Negative Hep Bs Antibody NONREACTIVE Hep B Core Total Ab Nonreactive Hepatitis C Ab (EIA) Nonreactive XR Right Hand 08/2024 FINDINGS: Three views of the right hand are submitted. Osseous mineralization is normal. There is no fracture or dislocation. Again seen is an erosion involving the ulnar aspect of the distal radius with mild narrowing of the radial scaphoid joint. Again seen is severe narrowing of the joint space between the scaphoid and the trapezium. The joint spaces of the hand are maintained. There is soft tissue swelling over the ulnar styloid. IMPRESSION: Soft tissue swelling over the ulnar styloid. Inflammatory arthropathy of the carpus with a similar appearance to the prior study. XR Left Hand 08/2024 FINDINGS: Three views of the left hand are submitted. Osseous mineralization is normal. There is no fracture or dislocation. There is severe arthritis involving the radiocarpal articulation with joint space narrowing and subchondral cyst formation. There is also narrowing of the joint space between the scaphoid and trapezium. There is flexion deformity of the 5th finger at the PIP joint. There is soft tissue swelling over the ulnar styloid. IMPRESSION: Soft tissue swelling over the ulnar styloid with the severe radiocarpal arthritis. Assessment & Plan Assessment & Plan (1) Seropositive rheumatoid arthritis of both wrists: Comment: +++RF+++CCP 05/2023 MTX Code(s): M05.731 - Rheumatoid arthritis with rheumatoid factor of right wrist without organ or systems involvement; M05.732 - Rheumatoid arthritis with rheumatoid factor of left wrist without organ or systems involvement Category: Medical Plan: #Seropositive RA Patient is a 49-year-old male with seropositive rheumatoid arthritis here today for follow up. Patient continues to have low disease activity despite methotrexate at therapeutic doses. 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 Limit alcohol and avoid Bactrim ? Monitoring: ?CBC, BMP, LFTs every 3-4 months and hepatitis serologies as needed (3) Encounter for monitoring of etanercept therapy: Code(s): Z51.81 - Encounter for therapeutic drug level monitoring; Z79.620 - oil heaterman (current) use of immunosuppressive biologic Plan: #Long-term Use of TNF Inhibitors: Enbrel Discussed with the patient the benefits and risks of TNF inhibitors for the management of the rheumatic condition Benefits include reduce pain, maintenance of remission and reduction of flares as well as progression of the disease Risks include injection sites/infusion reactions, serious infections (such as bacterial infections, opportunistic infections), malignancy, delaminating syndromes, autoimmune phenomena, CHF exacerbations, palmar plantar psoriasis and cytopenias Recommended rotating injection sites, and holding medication during and for up to 1 week after resolution of a febrile illness or open skin wound Plan I spent 30 minutes reviewing the record and labs, taking a history, examining the patient, discussing the treatment plan, ordering diagnostic work up and documenting in the medical record Coding Level of Care Code Est Pt Level 4 (33328) Complex EM visit Add On G2211 Diagnoses Seropositive rheumatoid arthritis of both wrists M05.731; M05.732 custodial methotrexate user Z79.631 Encounter for monitoring of etanercept therapy Z51.81; Z79.620
[2025-02-12 13:39] VITALS: BP 140/78; PULSE 96; O2SAT 98; BMI 18.9
--- OUTSIDE RECORDS SUMMARY | 2025-02-12 16:20 | XMS_ITS | Clinical Summary ---
Author Organization [facility] Address [address] [place] [address] Care Team Providers Care Deli Department Manager Name Role Phone Unavailable Primary Care Provider Unavailabl e Social History Tobacco Use Types Packs/Day Years Used Date Smoking Tobacco: Never Assessed Sex and Gender Information Value Date Recorded Sex Assigned at Not on file Gender Identity Not on file Sexual Orientation Not on file Plan of Treatment Not on file
--- OUTSIDE RECORDS SUMMARY | 2025-02-12 16:21 | XMS_ITS | Patient Health Record ---
Author Organization [facility] Address [address] [facility] [place] [address] Care Team Providers Care Tax Agent Name Role Phone Lul Saba Primary Care Provider Unav ailable Miguel Ángel Welchik Unavailable [phone] Reason For Referral No Information Medications Medication [...] Status Risk Notes Problem Acquired hallux valgus (57881042) Hallux valgus (acquired), left foot (M20.12) Active confirmed Problem Acquired hallux valgus (68340128) Hallux valgus (acquired), right foot (M20.11) Active confirmed Problem Rheumatoid arthritis (51593168) Rheumatoid arthritis involving both feet, unspecified whether rheumatoid factor present (M06.9) Active confirmed Vital Signs Blood pressure diastolic 80 mm Hg 03/23/2024 Height 5 ft 9 in in 03/23/2024 Blood pressure systolic 120 mm Hg 03/23/2024 Weight 130 lbs 03/23/2024 BMI 19.2 kg/m2 03/23/2024 Encounters Encounter Location Date Provider Diagnosis [facility] [address] [address] 03/23/2024 lAex Welch Pain in left foot M79.672 ; [...] feet, unspecified whether rheumatoid factor present M06.9 [facility] [address] [address] 03/23/2024 Alex Welch Assessments Encounter Date Diagnosis [...] Insured Coverage Start Date Coverage End Date [facility] [address] [place] [phone] [id number] Zack Izquierdo Self - patient is the insured Medical (General) History Medical History History ICD Code Anxiety Arthritis - Rheumatoid Depression High Blood Pressure Numbness Measles Chicken pox
== END 2025-02-12 14:28 | disposition home or self-care (01) ==
LOC: HO.RHES 13:24
PROVIDERS: PCP Nurse Practitioner Family; Visit Provider Student in an Organized Health Care Education/Training Program
DX: M05.731 Rheumatoid arthritis with rheumatoid factor of right wrist without organ or systems involvement (principal); M05.732 Rheumatoid arthritis with rheumatoid factor of left wrist without organ or systems involvement; Z79.631 Long term (current) use of antimetabolite agent; Z51.81 Encounter for therapeutic drug level monitoring; Z79.620 Long term (current) use of immunosuppressive biologic
CPT/HCPCS: 99214; G2211

== ENCOUNTER 2025-02-13 13:52 | Outpatient (AMB) | payer OTHER, SELFPAY ==
[2025-02-13 14:07] VITALS: BP 138/72; PULSE 85; RESP 16; O2SAT 98; BMI 18.2
--- NOTE | 2025-02-13 14:07 | MHC.PC.OV ---
Vital Signs 02/13/25 14:07 Height 5 ft 9 in Weight 123 lb BMI 18.2 BP 138/72 Blood Pressure Location Rt brachial Position Sitting Respiration 16 Pulse 85 Pulse Source Pulse Oximeter Pulse Oximetry (%) 98 Oxygen Delivery Method Room Air Intake Visit Reasons: 6m f/u Waste Examiner Required: No Accompanied by: Self / Same As Patient Allergies No Known Allergies (No Known Allergies*) Allergy (Verified 02/13/25 14:10) Medication List - Last Reconciled 02/13/25 by KAITLIN Carbone acetaminophen ER (Tylenol Arthritis Pain) 1,300 mg PO Q12H albuterol sulfate 90 mcg/actuation 2 puffs inhalation Q6H PRN diclofenac sodium 1% (Arthritis Pain (diclofenac)) 2 grams topical QID etanercept (Enbrel SureClick) 50 mg subcut QWEEK Held on 02/13/25. Instructions: Doctor's Order folic acid 1 mg PO DAILY losartan 25 mg PO DAILY methotrexate sodium 25 mg (10 x 2.5 mg) PO QWEEK 90 days nicotine (polacrilex) 4 mg buccal Q8H PRN sildenafil 25 mg PO DAILY PRN 30 days Tobacco use date assessed: 02/13/25 Dental Screening Dental Screen Date: 02/13/25 Did you have a dental visit in the last 12 months?: No Did you have a dental problem in the last 6 months where you did not have access to dental care?: No Was dental information given to patient?: Patient declined HPI 6m f/u HPI Details Chief Complaint Patient presents for follow-up for hypertension. History of Present Illness The patient is a 49 year old male presenting with follow-up for hypertension. He reports that he has not taken his losartan for at least a few days but intends to restart it. The patient also screened positive for depression and anxiety, which he states is situational. He denies any suicidal or homicidal ideation. Social History Health Maintenance Review of Systems - Psychiatric: Reports situational depression and anxiety. - Denies suicidal or homicidal ideation. - Cardiovascular: Denies chest pain. - Respiratory: Denies shortness of breath. - Gastrointestinal: Denies abdominal pain, blood in stool, constipation, or diarrhea. - Neurological: Denies headaches. - Eyes: Denies blurred vision. Physical Exam General: Cooperative, healthy appearing, comfortable, no acute distress and well developed Orientation: Patient oriented x3 Limitations: No limitations Head: Normal to inspection Ears: Hearing grossly normal bilaterally Nose: Normal external nose present Face and sinus: Normal facial exam Eyes: Appearance normal, both eyes and all related structures Neck: Normal visual inspection and Yes full ROM Respiratory: Normal respiratory effort and able to speak in complete sentences. Clear to auscultation bilaterally Cardiovascular: Regular rate and rhythm. Normal S1 and S2 GI: Normal to inspection. Soft to palpation and nontender Skin: No rashes or lesions noted Neuro: Patient oriented x3 Extremities: Normal to inspection Results - Tests and Diagnostics: Positive screen for depression and anxiety. Plan 1. Hypertension The patient has not taken his losartan for a few days. He will restart the medication. Labs will be ordered in the near future. 2. Anxiety And Depression The patient screened positive for depression and anxiety, which is reportedly situational. He denies suicidal or homicidal ideation. Will initiate low-dose buspirone. A referral will be made for therapy ((nguyễn () to speak with pt)) Discussion Notes I advised the patient to restart his losartan for hypertension, as he has been non-adherent for a few days, and informed him we will obtain labs soon. We also discussed his positive screen for situational depression and anxiety, and I have recommended initiating low-dose buspirone and will arrange a referral to a therapist, as I believe this would be beneficial for him. Patient Instructions - Please restart your losartan medication for your blood pressure. - We will be ordering some lab work for you to complete in the near future. - You will be started on a low-dose buspirone for anxiety. - Our staff will contact you to help set you up with a therapist. 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 Pain and swelling of toe of right foot Bilateral wrist pain Surgical History No pertinent past surgical history Family History Sister Substance use disorder Rheumatoid arthritis Mother Substance use disorder Brother Substance use disorder Father Substance use disorder Sister Rheumatoid arthritis Social History Housing: Apartment Alcohol intake: former Patient Tobacco Use Status: Current everyday Tobacco user Cigarettes Per Day: 10 e-Cigarette/Vaping Use: Currently Using service: No Current occupational status: employed Current occupation: [employer] Current occupational exposures/hazards: Yes Cognitive needs: No Hearing needs: No Vision needs: No Questionnaire PHQ-9 Over the last 2 weeks, how often have you been bothered by any of the following problems? 1. Little interest or pleasure in doing things: several days 2. Feeling down, depressed, or hopeless: nearly every day 3. Trouble falling or staying asleep, or sleeping too much: nearly every day 4. Feeling tired or having little energy: nearly every day 5. Poor appetite or overeating: nearly every day 6. Feeling bad about yourself - or that you are a failure or have let yourself or your family down: more than half the days 7. Trouble concentrating on things, such as reading the newspaper or watching television: several days 8. Moving or speaking so slowly that other people could have noticed. Or the opposite - being so fidgety or restless that you have been moving around a lot more than usual: more than half the days 9. Thoughts that you would be better off or of hurting yourself in some way: more than half the days Total score: 20 Depression Screening Interpretation: Positive (denies any si or hi, nguyễn to see pt) Depression Screening Follow-up: Existing condition and New Medication prescribed Depression Screening Done: Yes 99006 - PHQ-9 Billing: Yes Source: Developed by Drs. Alfredo Vasquez, Tahmina Mccrary, Larry Cruz and colleagues, with an educational ángel from [employer]. Thrive Questionnaire Date Thrive assessed: 05/01/24 I am a: Patient What is your living situation today?: I have a steady place to live Within the past 12 months, did the food you bought not last and you didn't have the money to get more?: I choose not to answer this question Within the past 12 months, did you worry whether your food would run out before you got money to buy more?: I choose not to answer this question Do you have trouble paying for medicines?: No Do you have trouble getting transportation to medical appointments?: No Do you have trouble paying your heating and electricity bill?: No Do you have trouble taking care of your child, family member or friend?: No Do you have trouble with day-to-day activities such as bathing, preparing meals, shopping, managing finances, etc.?: No Are you currently unemployed and looking for a job?: No Are you interested in more education?: No Please select the resources that you would like help with: None Currently or been in a relationship where the following occur: I choose not to answer THRIVE Score: 0 MARLYN-7 AMB Questionnaire MARLYN-7 Date MARLYN - 7 assessed: 02/13/25 Feeling nervous, anxious, or on edge: 3 = Nearly every day Not being able to stop or control worryin = Nearly every day Worrying too much about different things: 3 = Nearly every day Trouble relaxin = Nearly every day Being so restless that it is hard to sit still: 3 = Nearly every day Becoming easily annoyed or irritable: 3 = Nearly every day Feeling afraid as if something awful might happen: 3 = Nearly every day Total MARLYN-7 score (0-4 normal; 5-9 mild; 10-14 moderate; 15-21 severe): 21 Source: Developed by Drs. Alfredo Vasquez, Tahmina Mccrary, Larry Cruz and colleagues, with an educational ángel from [employer]. MARLYN-7 Assessment Billing MARLYN-7 Assessment Tool: MARLYN-7 Assessment 90762 (denies any si or hinguyễn to see pt) Physical exam (Primary Care) Vital Signs: Last Vital Signs Pulse 85 02/13/25 14:07 Resp 16 02/13/25 14:07 BP 138/72 02/13/25 14:07 Pulse Ox 98 02/13/25 14:07 Oxygen Delivery Method Room Air 02/13/25 14:07 BMI result Body Mass Index 18.2 Tobacco/Smoking Status: Tobacco use Status Tobacco use date assessed 02/13/25 02/13/25 14:12 Patient Tobacco Use Status Current everyday Tobacco 02/13/25 14:12 e-Cigarette/Vaping Use Currently Using 02/13/25 14:12 Depression Screening Interpretation: Positive (denies any si or hinguyễn to see pt) Depression Screening Follow-up: Existing condition and New Medication prescribed Thrive Assessment: Date of Thrive Assessment Date Thrive assessed 05/01/24 02/13/25 14:12 Currently or been in a relationship where the following occur: I choose not to answer Coding Level of Care Code Est Pt Level 3 (41273) Diagnoses Primary hypertension I10 Hypertension type: primary hypertension Screening for prostate cancer Z12.5 Additional Codes PHQ-9 - 15200 - PHQ-9 Billing: Yes ([id number]) MARLYN-7 Assessment Billing - MARLYN-7 Assessment Tool: MARLYN-7 Assessment 43092 ([id number]) Assessment & Plan Assessment & Plan (1) Hypertension: Onset Date: ~05/01/24 Code(s): I10 - Essential (primary) hypertension Category: Medical Qualifiers: Hypertension type: primary hypertension Qualified Code(s): I10 - Essential (primary) hypertension (2) Screening for prostate cancer: Code(s): Z12.5 - Encounter for screening for malignant neoplasm of prostate Category: Medical Plan . Orders: Orders Complete Blood Count Auto Diff Today I10 - Essential (primary) hypertension Comprehensive [place]. Panel Fast Today I10 - Essential (primary) hypertension TSH reflex Free T4 Today I10 - Essential (primary) hypertension UA CC w/rflx Micro + Cult Today I10 - Essential (primary) hypertension Lipid Panel Today I10 - Essential (primary) hypertension Prostate Specific Antigen Scr Today Z12.5 - Encounter for screening for malignant neoplasm of prostate Medications: New buspirone 5 mg PO BID 60 tabs 3RF 30 days
--- OUTSIDE RECORDS SUMMARY | 2025-02-13 17:05 | XMS_ITS | Clinical Summary ---
Author Organization [facility] Address [address] [place] [address] Care Team Providers Care Tanker Service Attendant Name Role Phone Unavailable Primary Care Provider Unavailabl e Social History Tobacco Use Types Packs/Day Years Used Date Smoking Tobacco: Never Assessed Sex and Gender Information Value Date Recorded Sex Assigned at Not on file Gender Identity Not on file Sexual Orientation Not on file Plan of Treatment Not on file
--- OUTSIDE RECORDS SUMMARY | 2025-02-13 17:05 | XMS_ITS | Patient Health Record ---
Author [facility] Address [address] [place] [address] Care Team Providers Care Automotive Internet Sales Manager Name Role Phone Lul Saba Primary Care Provider Unav ailable Miguel Ángel Welchik Unavailable [phone] Reason For Referral No Information Medications Medication [...] Status Risk Notes Problem Acquired hallux valgus (95192013) Hallux valgus (acquired), left foot (M20.12) Active confirmed Problem Acquired hallux valgus (84190759) Hallux valgus (acquired), right foot (M20.11) Active confirmed Problem Rheumatoid arthritis (03443467) Rheumatoid arthritis involving both feet, unspecified whether rheumatoid factor present (M06.9) Active confirmed Vital Signs Blood pressure diastolic 80 mm Hg 03/23/2024 Height 5 ft 9 in in 03/23/2024 Blood pressure systolic 120 mm Hg 03/23/2024 Weight 130 lbs 03/23/2024 BMI 19.2 kg/m2 03/23/2024 Encounters Encounter Location Date Provider Diagnosis [facility] [address] [address] 03/23/2024 Alex Welch Pain in left foot [...] feet, unspecified whether rheumatoid factor present M06.9 [facility] [address] [address] 03/23/2024 Alex Welch Assessments Encounter Date Diagnosis [...] Insured Coverage Start Date Coverage End Date [facility] [address] [place] [phone] [id number] Zack Izquierdo Self - patient is the insured Medical (General) History Medical History History ICD Code Anxiety Arthritis - Rheumatoid Depression High Blood Pressure Numbness Measles Chicken pox
== END 2025-02-13 14:57 | disposition home or self-care (01) ==
LOC: HO.HMCC 13:53
PROVIDERS: PCP Nurse Practitioner Family; Visit Provider Nurse Practitioner Family
DX: I10 Essential (primary) hypertension (principal); Z12.5 Encounter for screening for malignant neoplasm of prostate

== ENCOUNTER → 2025-02-13 13:52 | Outpatient (BNVA) | payer OTHER, SELFPAY | PROVIDERS: PCP Nurse Practitioner Family; Visit Provider Nurse Practitioner Family | DX: I10 Essential (primary) hypertension (principal); F41.9 Anxiety disorder, unspecified; F32.A Depression, unspecified | CPT/HCPCS: 96127 ==

== ENCOUNTER 2025-03-01 14:39 | Outpatient (AMB) | payer OTHER, SELFPAY ==
--- NOTE | 2025-03-01 14:42 | MHC.OFFVIS ---
Vital Signs 03/01/25 14:53 Height 5 ft 9 in Weight 123 lb BMI 18.2 BP 115/82 Blood Pressure Location Rt brachial Position Sitting Pulse 104 H Intake Visit Reasons: colo screen Intake Note: New patient in office today for colonoscopy screening. CC: Patient denies having any GI symptoms today. Commercial Credit Analyst Required: No Accompanied by: Self / Same As Patient Allergies No Known Allergies (No Known Allergies*) Allergy (Verified 02/13/25 14:10) HPI HPI colo screen: Details: 48-year-old male here for preprocedural meeting to discuss a screening colonoscopy. He is referred by Willi Jimenez [facility] primary care. 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 Pain and swelling of toe of right foot Bilateral wrist pain Surgical History No pertinent past surgical history Family History Sister Substance use disorder Rheumatoid arthritis Mother Substance use disorder Brother Substance use disorder Father Substance use disorder Sister Rheumatoid arthritis Social History Housing: Apartment Alcohol intake: former Patient Tobacco Use Status: Current everyday Tobacco user Cigarettes Per Day: 10 e-Cigarette/Vaping Use: Currently Using service: No Current occupational status: employed Current occupation: [employer] Current occupational exposures/hazards: Yes Cognitive needs: No Hearing needs: No Vision needs: No Review of Systems Const Denies fatigue, Denies fever(s), Denies night sweats, Denies poor appetite and Denies weight loss ENT Denies dental pain, Denies dysphagia, Denies hearing loss, Denies mouth pain, Denies odynophagia, Denies throat swelling, Denies tongue swelling and Reports other (Dentition adequate) Card Reports no additional complaints Resp Reports no additional complaints GI Details: Denies abdominal pain, Denies melena, Denies bloating, Denies hematochezia, Denies constipation, Denies GI cramping, Denies dysphagia, Denies excessive flatus, Denies early satiety, Denies heartburn, Denies diarrhea, Denies nausea, Denies odynophagia, Denies vomiting and Denies hematemesis Musc Reports deformity, Reports arthralgias, Reports joint swelling and Reports stiffness Skin/Breast Denies pruritus, Denies lesions, Denies rash and Denies jaundice Endo Denies fatigue Aller/Immun Denies throat swelling and Denies tongue swelling Assessment & Plan Assessment & Plan (1) Pre-op examination: Code(s): Z01.818 - Encounter for other preprocedural examination Category: Medical Plan Subjective Patient presents to discuss colorectal cancer screening. We reviewed indications for colonoscopy, including the ability to detect and remove precancerous polyps under sedation. Patient expressed concern about insurance coverage for bowel prep and asked about alternatives. No family history of colon cancer. Patient prefers to begin with a stool DNA test (Cologuard) rather than proceed directly to colonoscopy. We discussed that a positive result would necessitate colonoscopy, and a negative result would be repeated every three years. Patient reports rheumatoid arthritis with significant joint pain and swelling affecting daily activities; currently on methotrexate and anticipates possible surgery for the affected area. Because of this he would prefer to do a Cologuard prior to considering colonoscopy. Relevant Past Medical, Social, and Family History - Rheumatoid arthritis; currently treated with methotrexate. - Family history notable for a sister with severe rheumatoid arthritis (). - Denies family history of colon cancer. Objective - Musculoskeletal: Visible swelling/effusion of hand consistent with rheumatoid arthritis flare. Assessment & Plan Colorectal cancer screening: Patient is average risk based on reported history (no family history of colon cancer). We discussed screening options including colonoscopy and stool DNA testing. Patient elected to proceed with stool DNA testing (Cologuard) at this time, understanding test characteristics and downstream need for colonoscopy if positive. - Order Cologuard stool DNA test; kit to be shipped to patient?s home. - Instruct patient on completing the kit and returning via UPS as directed. - If Cologuard positive: proceed with diagnostic colonoscopy. - If Cologuard negative: repeat stool DNA testing in three years. - Cancel previously placed Sutab bowel prep order for colonoscopy; patient advised to inform pharmacy if contacted. - Follow up in 8 weeks to review results and next steps. Orders: Referrals GI Procedure Notification Z01.818 - Encounter for other preprocedural examination Coding Level of Care Code New Pt Level 3 (94092) Diagnoses Pre-op examination Z01.818
[2025-03-01 14:53] VITALS: BP 115/82; PULSE 104; BMI 18.2
--- OUTSIDE RECORDS SUMMARY | 2025-03-01 14:56 | XMS_ITS | Patient Health Record ---
Author Organization [facility] Address [address] [facility] [facility] [place] [address] Care Team Providers Care Pit Manager Name Role Phone Lul Saba Primary Care Provider Unav ailable Miguel Ángel Welchik Unavailable [phone] Reason For Referral No Information Medications Medication [...] Status Risk Notes Problem Acquired hallux valgus (17301957) Hallux valgus (acquired), left foot (M20.12) Active confirmed Problem Acquired hallux valgus (34745143) Hallux valgus (acquired), right foot (M20.11) Active confirmed Problem Rheumatoid arthritis (86353871) Rheumatoid arthritis involving both feet, unspecified whether rheumatoid factor present (M06.9) Active confirmed Vital Signs Blood pressure diastolic 80 mm Hg 03/23/2024 Height 5 ft 9 in in 03/23/2024 Blood pressure systolic 120 mm Hg 03/23/2024 Weight 130 lbs 03/23/2024 BMI 19.2 kg/m2 03/23/2024 Encounters Encounter Location Date Provider Diagnosis [facility] [address] [address] 03/23/2024 Alex Welch Pain in left foot [...] feet, unspecified whether rheumatoid factor present M06.9 [facility] [address] [address] 03/23/2024 Alex Welch Assessments Encounter Date Diagnosis [...] Insured Coverage Start Date Coverage End Date [facility] [address] [place] [phone] [id number] Zack Izquierdo Self - patient is the insured Medical (General) History Medical History History ICD Code Anxiety Arthritis - Rheumatoid Depression High Blood Pressure Numbness Measles Chicken pox
--- OUTSIDE RECORDS SUMMARY | 2025-03-01 14:56 | XMS_ITS | Clinical Summary ---
Author Organization [facility] Address [address] [place] [address] Care Team Providers Care Rn Discharge Name Role Phone Unavailable Primary Care Provider Unavailabl e Social History Tobacco Use Types Packs/Day Years Used Date Smoking Tobacco: Never Assessed Sex and Gender Information Value Date Recorded Sex Assigned at Not on file Gender Identity Not on file Sexual Orientation Not on file Plan of Treatment Not on file
== END 2025-03-01 15:44 | disposition home or self-care (01) ==
LOC: HO.HGI 14:39
PROVIDERS: PCP Nurse Practitioner Family; Referring Provider Nurse Practitioner; Visit Provider Nurse Practitioner
DX: Z01.818 Encounter for other preprocedural examination (principal); Z12.11 Encounter for screening for malignant neoplasm of colon
CPT/HCPCS: 99203